=== PATIENT | female | born 1980 | race Caucasian/White ===

== ENCOUNTER 2018-09-01 14:55 | Outpatient (CLI) | payer BC, SELFPAY ==
[2018-09-01 15:00] VITALS: BP 112/76; PULSE 64; RESP 20
[2018-09-01 15:23] VITALS: BMI 34.8
[2018-09-01 15:50] VITALS: BP 110/64; PULSE 66; RESP 20
[2018-09-01 16:25] VITALS: BP 111/72; PULSE 65; RESP 20
[2018-09-01 16:55] VITALS: BP 113/62; PULSE 64; RESP 20
[2018-09-01 17:25] VITALS: BP 126/80; PULSE 61; RESP 20
[2018-09-01 17:45] VITALS: BP 125/77; PULSE 62; RESP 20
== END 2018-09-01 17:50 | disposition home or self-care (01) ==
LOC: INF 14:58
PROVIDERS: PCP Family Medicine; Visit Provider Family Medicine
DX: R11.2 Nausea with vomiting, unspecified (principal)
CPT/HCPCS: 96360; 96361; 96374

== ENCOUNTER 2019-01-11 12:17 | Observation (INO) | payer BC, SELFPAY ==
--- NOTE | 2019-01-11 12:31 | CT_ITS ---
CT abdomen pelvis wo/w con CLINICAL INDICATION: Right lower quadrant pain with vomiting ITS.REASON: RLQ ABDOMINAL PAIN ORDERING PHYSICIAN: Luiz Mahmood MD PATIENT AGE: 38 years COMPARISON: None TECHNIQUE: Axial images obtained without and with contrast. Sagittal and coronal reformats. All CT scans at the facility use one or more dose reduction, viz: automated exposure control, ma/kV adjustment per patient size (including targeted exams where dose is matched to indication, i.e. head), or iterative reconstruction technique. PROCEDURE: Oral Contrast: Gastroview IV Contrast: 75 mL's Optiray 350. FINDINGS: The lung bases are clear. Unenhanced images show no evidence of kidney stones. Spleen, gallbladder, adrenal glands, and pancreas has an unremarkable appearance. There are scattered small nodes in the mesentery is nonspecific. No evidence of appendicitis. No intestinal obstruction or free air. There is an IUD in place. Prominent soft tissue density is present in the right adnexal region and may be due to an ovarian cyst or an enlarged hypodense ovary.. No abscess mass or other significant anomalies evident. No acute bony anomalies. IMPRESSION: 1. No evidence of appendicitis or obstructing ureteral calculus. 2. Prominent right adnexa with low attenuation which may be due to ovarian cyst measuring 4.3 x 2.9 cm. Pelvic ultrasound may be of further value especially if torsion is a clinical consideration.
[2019-01-11 12:35] VITALS: BP 141/88; PULSE 89; RESP 15; TEMP 36.6; O2SAT 96; BMI 36.7
[2019-01-11 13:10] LABS: Basophils % 0.3 % (0.1-2.0); Eosinophils # 0.2 K/mm3 (0.0-0.4); Eosinophils % 1.6 % (0.1-12.0); Hematocrit 43.2 % (37.0-47.0); Lymphocytes # 1.8 K/mm3 (0.7-4.5); Lymphocytes % 17.8 % (10-50); Mean Corpuscular HGB Conc 34.6 g/dL (31.8-35.4); Mean Corpuscular Hemoglobin 32.4 pg (27.0-31.2); Mean Corpuscular Volume 93.5 fl (81-99); Mean Platelet Volume 6.8 fl (7.4-10.4); Monocytes # 0.4 K/mm3 (0.1-1.0); Monocytes % 4.1 % (1.7-9.3); Neutrophils # 7.8 K/mm3 (1.8-7.8); Neutrophils % 76.2 % (37.0-80.0); Platelet Count 328 K/mm3 (142-424); Red Blood Count 4.63 M/mm3 (4.20-5.40); Red Cell Distribution Width 13.2 % (11.5-17.5); White Blood Count 10.3 K/mm3 (4.8-10.8)
[2019-01-11 13:25] LABS: Alanine Aminotransferase 23 U/L (12-78); Albumin Level 3.5 gm/dL (3.4-5.0); Alkaline Phosphatase 73 U/L (46-116); Anion Gap 13.5 mEq/L (5-15); Aspartate Amino Transferase 11 U/L (15-37); Bilirubin,Total 0.8 mg/dL (0.2-1.0); Blood Urea Nitrogen 9 mg/dL (7-18); Calcium 8.4 mg/dL (8.5-10.1); Carbon Dioxide 26 mmol/L (21.0-32.0); Chloride 100 mmol/L (98-107); Creatinine Clearance Estimated 277 mL/min (50-200); Creatinine,Serum 0.52 mg/dL (0.55-1.02); Estimated Glomerular Filt Rate 132 ml/min (>60); GFR (African American) 160 ML/MIN (>60); Globulin 3.4 gm/dl (1.3-3.2); Glucose 91 mg/dL (74-106); Potassium 3.5 mmoL/L (3.5-5.1); Sodium 136 mmol/L (136-145); Total Protein,Serum 6.9 gm/dL (6.4-8.2)
--- NOTE | 2019-01-11 14:06 | PC.NURSE ---
Education provided regarding, diarrhea, abdominal pain, nausea, patient verbalized understanding, will continue to monitor.
--- NOTE | 2019-01-11 15:13 | HMH.ACPN2 ---
Internal Medicine - PN: Subj *Date: 01/11/19 *Time: 15:13 Interval history: Ms. Murcia is a 38-year-old female with a immune disorder who presented to the office of [facility] today with nausea and vomiting and diarrhea for the past 2 days. This morning she awakened with right lower quadrant severe abdominal pain. She continued on with diarrhea and vomiting. She has been unable to retain fluids or fluids. She has not diminished urinary output. She also complains of a headache. She has had no upper respiratory tract symptoms. Exam the office patient demonstrated right lower quadrant tenderness. CBC was normal. She appeared to feel poorly. She also had hematuria. She was seen by Dr. Mahmood as well. She was admitted to [facility] for further evaluation and treatment. She will have IV fluids and CT scan of the pelvis. She will also have a diarrhea panel. See [facility] H&P scanned into record. Exam Vital signs and Labs for Last 24 Hours: Temp Pulse Resp BP Pulse Ox 97.9 F 89 15 141/88 H 96 01/11/19 12:35 01/11/19 12:35 01/11/19 12:35 01/11/19 12:35 01/11/19 12:35 Laboratory Results - last 24 hr 01/11/19 12:53: WBC 10.3, RBC 4.63, Hgb 15.0, Hct 43.2, MCV 93.5, MCH 32.4 H, MCHC 34.6, RDW 13.2, Plt Count 328, MPV 6.8 L, Neut % (Auto) 76.2, Lymph % (Auto) 17.8, [place] % (Auto) 4.1, Eos % (Auto) 1.6, Baso % (Auto) 0.3, Neut # (Auto) 7.8, Lymph # (Auto) 1.8, [place] # (Auto) 0.4, Eos # (Auto) 0.2, Baso # (Auto) 0.0 01/11/19 12:53: Sodium 136, Potassium 3.5, Chloride 100, Carbon Dioxide 26, Anion Gap 13.5, BUN 9, Creatinine 0.52 L, Estimated Creat Clear 277, Estimated GFR 132, Est GFR ( Amer) 160, Glucose 91, Calcium 8.4 L, Total Bilirubin 0.8, AST 11 L, ALT 23, Alkaline Phosphatase 73, Total Protein 6.9, Albumin 3.5, Globulin 3.4 H, Albumin/Globulin Ratio 1.0 L I & O for Last 24 hours: Intake & Output 01/09/19 01/10/19 01/11/19 01/12/19 11:59 11:59 11:59 11:59 Intake Total 1000 / 1000 Balance 1000 / 1000 Weight 263 lb 4 oz Assessment and Plan (1) Nausea vomiting and diarrhea Current visit: Yes Status: Acute Category: Medical Code(s): R11.2 - Nausea with vomiting, unspecified; R19.7 - Diarrhea, unspecified (2) Abdominal pain Current visit: Yes Status: Acute Category: Medical Code(s): R10.9 - Unspecified abdominal pain (3) Mild dehydration Current visit: Yes Status: Acute Category: Medical Code(s): E86.0 - Dehydration (4) Hematuria Current visit: Yes Status: Acute Category: Medical Code(s): R31.9 - Hematuria, unspecified (5) Immune deficiency disorder Current visit: Yes Status: Chronic Category: Medical Code(s): D84.9 - Immunodeficiency, unspecified - Assessment and plan all Dx Assessment and Plan for all problems:: IV fluids. Diarrhea panel. Nausea/vomiting control.
[2019-01-11 15:42] LABS: Microscopic, Urine URINE MICROSCOPIC (MICROSCOPIC)
[2019-01-11 15:52] LABS: Appearance,Urine CLEAR (Clear); Bilirubin,Urine Negative (Negative); Blood, Urine 3+ (Negative); Color,Urine YELLOW (Yellow); Glucose,Urine (UA) Negative (Negative); Ketones,Urine Negative (Negative); Leukocyte Esterase,Urine Negative (Negative); Nitrate,Urine Negative (Negative); PH,Urine 6.5 (5.0-8.5); Protein,Urine Negative (Negative); Specific Gravity, Urine <= 1.005 (1.005-1.030); Urobilinogen,Urine 0.2 EU/dl (0.2)
[2019-01-11 15:56] VITALS: BP 106/59; PULSE 74; RESP 17; TEMP 36.6; O2SAT 99
[2019-01-11 16:03] LABS: Bacteria,Urine Trace /lpf
--- NOTE | 2019-01-11 16:20 | P.CONPHA_ITS ---
[facility] Pharmacy VTE Monitoring - Patient Demographics Admission date: 01/11/19 Report Date: 01/11/19 Time: 16:20 Allergies/Adverse Reactions: Patient Allergies HYQUVIA Allergy (Unknown, Uncoded 08/10/17 15:38) I-RASH Height: 1.8 m Weight: 119.408 kg Patient Problems: Current Active Problems (Updated 01/11/19 @ 15:23 by Brii Rios APRN) Nausea vomiting and diarrhea (Acute) Abdominal pain (Acute) Mild dehydration (Acute) Hematuria (Acute) Immune deficiency disorder (Chronic) - VTE Risk Labs: VTE Related Lab Results Hgb 15.0 g/dL (12.2-16.2) 01/11/19 12:53 Hct 43.2 % (37.0-47.0) 01/11/19 12:53 Plt Count 328 K/mm3 (142-424) 01/11/19 12:53 BUN 9 mg/dL (7-18) 01/11/19 12:53 Creatinine 0.52 mg/dL (0.55-1.02) L 01/11/19 12:53 Estimated Creat Clear 277 mL/min (50-200) 01/11/19 12:53 VTE Score: 2 - Prophylaxis VTE Prophylaxis Ordered?: Yes Types of VTE Prophylaxis: TEDS Knee High Location of Applied Device: Bilateral Lower Extremeties
--- NOTE | 2019-01-11 17:00 | US_ITS ---
US transvaginal HISTORY: Right lower quadrant pain and vomiting, abnormal CT scan showing prominent right adnexa., Evaluate for torsion ITS.REASON: RLQ PAIN ORDERING PHYSICIAN: Luiz Mahmood MD PATIENT AGE: 38 years Comparison: 01/11/2019 FINDINGS: The uterus measures 8 x 5 x 4 cm with a combined endometrial thickness of 7 mm. The uterus is retroverted. The left ovary has an unremarkable appearance 1.9 x 1.6 cm. There is a 4 x 4 cm right ovarian cyst. Blood flow is present within the cortex of the right ovary. No evidence of torsion. Blood flow is also present within the left ovary. No cul-de-sac fluid evident. IMPRESSION: 1. 4 cm right ovarian cyst. 2. Blood flow is present in both ovaries. No evidence of ovarian torsion
--- NOTE | 2019-01-11 17:31 | PC.NURSE ---
no acute changes noted, patient has no complaints at this time, VSS, call light in place, will continue to monitor.
[2019-01-11 17:42] LABS: Adenovirus F 40/41, stool Not Detected (NotDetected); Astrovirus Not Detected (NotDetected); Campylobacter Not Detected (NotDetected); Clostridium Difficile A/B, PCR Not Detected (NotDetected); Cryptosporidium Not Detected (NotDetected); Cyclospora Cayetanesis Not Detected (NotDetected); Entamoeba histolytica Not Detected (NotDetected); Enteroaggregative E coli Not Detected (NotDetected); Enteropathogenic E coli Not Detected (NotDetected); Enterotoxigenic E coli Not Detected (NotDetected); Giardia lamblia Not Detected (NotDetected); Plesimonas Shigalloides, PCR Not Detected (NotDetected); Rotavirus A Not Detected (NotDetected); Salmonella, PCR Not Detected (NotDetected); Sapovirus Not Detected (NotDetected); Shiga-like toxin E coli Not Detected (NotDetected); Shigella Enterovasive E coli Not Detected (NotDetected); Vibrio Cholerae Not Detected (NotDetected); Vibrio, PCR Not Detected (NotDetected); Yersinia Entercolitica, PCR Not Detected (NotDetected)
--- NOTE | 2019-01-11 19:17 | PC.NURSE ---
report given to rory
[2019-01-11 19:34] LABS: Norovirus Detected (NotDetected)
[2019-01-11 20:00] VITALS: BP 147/96; PULSE 80; RESP 17; TEMP 36.8; O2SAT 99
--- NOTE | 2019-01-11 20:13 | PC.NURSE ---
Pt transported by wheelchair to radiology for US at this time.
--- NOTE | 2019-01-11 20:14 | PC.NURSE ---
rn aware of elevated bp
--- NOTE | 2019-01-11 20:38 | PC.NURSE ---
Pt returned to floor at this time.
--- NOTE | 2019-01-12 03:37 | PC.NURSE ---
PT IS A&O X 3. CLEAR, EQUAL BILATERAL BREATH SOUNDS PER AUSCULTATION. PT IS ON ROOM AIR. TOLERATED WELL. ABDOMEN IS FLAT, SOFT AND TENDER PER PALPATION. PT DENIED ANY N/V. PT REPORTED STILL HAVING EPISODES OF DIARRHEA. PT COMPLAINED OF A THROBBING PRESSURE LIKE PAIN IN HER RLQ WITH OR WITHOUT MOVEMENT. PT TOLERATED A CLEAR LIQUID DIET. HYPERACTIVE BOWEL SOUNDS HEARD PER AUSCULTATION. DIARRHEA PANNEL CAME BACK POSITIVE FOR NORO VIRUS. PT WAS PLACED AND REMAINED IN CONTACT/ ENTERIC ISOLATION T/O SHIFT. PT REPORTED NOTICING A SCANT AMOUNT OF BRIGHT RED BLOOD PRESENT FROM HER VAGINA. WHEN ASKED ABOUT HER LAST MENSTRUAL CYCLE THE PT STATED SHE HADNT HAD ONE IN YEARS. PT IS ABLE TO AMBULATE AND VOID INDEPENDENTLY. CALL LIGHT KEPT IN REACH. VSS. WILL CONTINUE TO MONITOR.
[2019-01-12 04:00] VITALS: BP 106/65; PULSE 70; RESP 16; TEMP 36.8; O2SAT 95
[2019-01-12 05:57] VITALS: BMI 37.2
[2019-01-12 08:00] VITALS: BP 130/80; PULSE 74; RESP 15; TEMP 36.6; O2SAT 94
--- NOTE | 2019-01-12 08:04 | PC.NURSE ---
IV INTAKE FROM PREVIOUS SHIFT WELL.
--- NOTE | 2019-01-12 08:26 | HMH.ACPN2 ---
Internal Medicine - PN: Subj *Date: 01/12/19 *Time: 08:26 Interval history: Patient states she is feeling better today. She has not had diarrhea for approx. 5 to 6 hours. Her stomach pain is improving. She was able to tolerate a clear liquid diet. She rested last night. Exam Vital signs and Labs for Last 24 Hours: Temp Pulse Resp BP Pulse Ox 97.9 F 70 15 130/80 94 L 01/12/19 08:00 01/12/19 04:00 01/12/19 08:00 01/12/19 08:00 01/12/19 08:00 Laboratory Results - last 24 hr 01/11/19 12:53: WBC 10.3, RBC 4.63, Hgb 15.0, Hct 43.2, MCV 93.5, MCH 32.4 H, MCHC 34.6, RDW 13.2, Plt Count 328, MPV 6.8 L, Neut % (Auto) 76.2, Lymph % (Auto) 17.8, [place] % (Auto) 4.1, Eos % (Auto) 1.6, Baso % (Auto) 0.3, Neut # (Auto) 7.8, Lymph # (Auto) 1.8, [place] # (Auto) 0.4, Eos # (Auto) 0.2, Baso # (Auto) 0.0 01/11/19 12:53: Sodium 136, Potassium 3.5, Chloride 100, Carbon Dioxide 26, Anion Gap 13.5, BUN 9, Creatinine 0.52 L, Estimated Creat Clear 277, Estimated GFR 132, Est GFR ( Amer) 160, Glucose 91, Calcium 8.4 L, Total Bilirubin 0.8, AST 11 L, ALT 23, Alkaline Phosphatase 73, Total Protein 6.9, Albumin 3.5, Globulin 3.4 H, Albumin/Globulin Ratio 1.0 L 01/11/19 13:37: Urine Color Yellow, Urine Appearance Clear, Urine pH 6.5, Ur Specific [place] <= 1.005, Urine Protein Negative, Urine Glucose (UA) Negative, Urine Ketones Negative, Urine Blood 3+, Urine Nitrate Negative, Urine Bilirubin Negative, Urine Urobilinogen 0.2, Ur Leukocyte Esterase Negative, Urine WBC 3-5, Ur Squamous Epith Cells 3-5, Urine Bacteria Trace 01/11/19 17:32: Stl Aeromonas (PCR) Not detected, Stl C. cayetanensis PCR Not detected, Stool Rotavirus (PCR) Not detected, Stl Adenov F 40/41 PCR Not detected, Stool Astrovirus (PCR) Not detected, Stool Campylobacter PCR Not detected, Stl C.difficile Tox PCR Not detected, Stool Cryptosporidium PCR Not detected, Stl E.coli Shiga Tox PCR Not detected, Stool E coli O157 PCR Not detected, Stl Enterotoxigenic E PCR Not detected, Stool EPEC (PCR) Not detected, Stool EAEC (PCR) Not detected, Stl E. histolytica PCR Not detected, Stool Giardia Lamblia PCR Not detected, Stool Salmonella PCR Not detected, Stool Sapovirus (PCR) Not detected, Stl P. shigelloides PCR Not detected, Stl Shigella/EIEC PCR Not detected, St Y.enterocolitica PCR Not detected, Stool Vibrio (PCR) Not detected, Stl Vibrio cholerae PCR Not detected, Stl Norovirus GI/GII PCR Detected A I & O for Last 24 hours: Intake & Output 01/09/19 01/10/19 01/11/19 01/12/19 11:59 11:59 11:59 11:59 Intake Total 4606 / 4606 Output Total 800 / 800 Balance 3806 / 3806 Weight 267 lb 2 oz Radiology Reports for the Last 24 Hours: CT abdomen pelvis 1. No evidence of appendicitis or obstructing ureteral calculus. 2. Prominent right adnexa with low attenuation which may be due to ovarian cyst measuring 4.3 x 2.9 cm. Pelvic ultrasound may be of further value especially if torsion is a clinical consideration. Pelvic U/S 1. 4 cm right ovarian cyst. 2. Blood flow is present in both ovaries. No evidence of ovarian torsion - Constitutional no acute distress - *Routine Respiratory Exam Present: CTA bilaterally - *Routine Cardiovascular Exam Present: RRR - *Routine Abdominal Exam Present: soft, normoactive bowel sounds, tenderness (diffuse) - *Routine Extremities Exam Absent: cyanosis, clubbing, edema - *Routine Skin Exam Present: warm. Absent: rash - *Routine Neurological Exam Present: alert, oriented X3 Assessment and Plan (1) Norovirus Current visit: Yes Status: Acute Category: Medical Code(s): A08.11 - Acute gastroenteropathy due to [place] agent (2) Nausea vomiting and diarrhea Current visit: Yes Status: Acute Category: Medical Code(s): R11.2 - Nausea with vomiting, unspecified; R19.7 - Diarrhea, unspecified (3) Abdominal pain Current visit: Yes Status: Acute Category: Medical Code(s): R10.9 - Unspecified abdominal pain (
--- NOTE | 2019-01-12 08:29 | P.PN_ITS ---
Internal Medicine - PN: Subj *Date: 01/12/19 *Time: 08:26 Interval history: Patient states she is feeling better today. She has not had diarrhea for approx. 5 to 6 hours. Her stomach pain is improving. She was able to tolerate a clear liquid diet. She rested last night. Exam Vital signs and Labs for Last 24 Hours: Temp Pulse Resp BP Pulse Ox 97.9 F 70 15 130/80 94 L 01/12/19 08:00 01/12/19 04:00 01/12/19 08:00 01/12/19 08:00 01/12/19 08:00 Laboratory Results - last 24 hr 01/11/19 12:53: WBC 10.3, RBC 4.63, Hgb 15.0, Hct 43.2, MCV 93.5, MCH 32.4 H, MCHC 34.6, RDW 13.2, Plt Count 328, MPV 6.8 L, Neut % (Auto) 76.2, Lymph % (Auto) 17.8, [place] % (Auto) 4.1, Eos % (Auto) 1.6, Baso % (Auto) 0.3, Neut # (Auto) 7.8, Lymph # (Auto) 1.8, [place] # (Auto) 0.4, Eos # (Auto) 0.2, Baso # (Auto) 0.0 01/11/19 12:53: Sodium 136, Potassium 3.5, Chloride 100, Carbon Dioxide 26, Anion Gap 13.5, BUN 9, Creatinine 0.52 L, Estimated Creat Clear 277, Estimated GFR 132, Est GFR ( Amer) 160, Glucose 91, Calcium 8.4 L, Total Bilirubin 0.8, AST 11 L, ALT 23, Alkaline Phosphatase 73, Total Protein 6.9, Albumin 3.5, Globulin 3.4 H, Albumin/Globulin Ratio 1.0 L 01/11/19 13:37: Urine Color Yellow, Urine Appearance Clear, Urine pH 6.5, Ur Specific [place] <= 1.005, Urine Protein Negative, Urine Glucose (UA) Negative, Urine Ketones Negative, Urine Blood 3+, Urine Nitrate Negative, Urine Bilirubin Negative, Urine Urobilinogen 0.2, Ur Leukocyte Esterase Negative, Urine WBC 3-5, Ur Squamous Epith Cells 3-5, Urine Bacteria Trace 05/22/19 17:32: Stl Aeromonas (PCR) Not detected, Stl C. cayetanensis PCR Not detected, Stool Rotavirus (PCR) Not detected, Stl Adenov F 40/41 PCR Not detected, Stool Astrovirus (PCR) Not detected, Stool Campylobacter PCR Not detected, Stl C.difficile Tox PCR Not detected, Stool Cryptosporidium PCR Not detected, Stl E.coli Shiga Tox PCR Not detected, Stool E coli O157 PCR Not detected, Stl Enterotoxigenic E PCR Not detected, Stool EPEC (PCR) Not detected, Stool EAEC (PCR) Not detected, Stl E. histolytica PCR Not detected, Stool Giardia Lamblia PCR Not detected, Stool Salmonella PCR Not detected, Stool Sapovirus (PCR) Not detected, Stl P. shigelloides PCR Not detected, Stl Shigella/EIEC PCR Not detected, St Y.enterocolitica PCR Not detected, Stool Vibrio (PCR) Not detected, Stl Vibrio cholerae PCR Not detected, Stl Norovirus GI/GII PCR Detected A I & O for Last 24 hours: Intake & Output 01/09/19 01/10/19 01/11/19 01/12/19 11:59 11:59 11:59 11:59 Intake Total 4606 / 4606 Output Total 800 / 800 Balance 3806 / 3806 Weight 267 lb 2 oz Radiology Reports for the Last 24 Hours: CT abdomen pelvis 1. No evidence of appendicitis or obstructing ureteral calculus. 2. Prominent right adnexa with low attenuation which may be due to ovarian cyst measuring 4.3 x 2.9 cm. Pelvic ultrasound may be of further value especially if torsion is a clinical consideration. Pelvic U/S 1. 4 cm right ovarian cyst. 2. Blood flow is present in both ovaries. No evidence of ovarian torsion - Constitutional no acute distress - *Routine Respiratory Exam Present: CTA bilaterally - *Routine Cardiovascular Exam Present: RRR - *Routine Abdominal Exam Present: soft, normoactive bowel sounds, tenderness (diffuse) - *Routine Extremities Exam Absent: cyanosis, clubbing, edema - *Routine Skin Exam Present: warm. Absent: rash
--- NOTE | 2019-01-12 10:33 | PC.NURSE ---
patient stated that she has tolerated breakfast this morning.
--- NOTE | 2019-01-12 11:56 | HMH.DCSUM ---
General - General Admission date:: 01/11/19 Discharge date: 01/12/19 HPI HPI: Ms. Murcia is a 38-year-old female with a immune disorder who presented to the office of [facility] today with nausea and vomiting and diarrhea for the past 2 days. This morning she awakened with right lower quadrant severe abdominal pain. She continued on with diarrhea and vomiting. She has been unable to retain food or fluids. She has diminished urinary output. She also complains of a headache. She has had no upper respiratory tract symptoms. With exam in the office, the patient demonstrated right lower quadrant tenderness. CBC was normal. She appeared to feel poorly. She also had hematuria. She was seen by Dr. Pablo as well. She was admitted to [facility] for further evaluation and treatment. She will have IV fluids and CT scan of the pelvis. She will also have a diarrhea panel. Hospital Course Hospital Course: The patient's abdominal CT showed no evidence of appendicitis or kidney stones. It did show a prominent right adnexa with low attenuation which could be due to ovarian cyst. Radiology recommended a pelvic ultrasound. The patient had a transvaginal ultrasound which showed a 4 cm right ovarian cyst. There was no evidence of ovarian torsion. She was started on IV fluids, antiemetics, and a diarrhea panel was ordered. It came back positive for norovirus. Her symptoms did not improve. Her diet was advanced and her IV fluids were decreased. She began feeling much better and was anxious to be discharged home. She was stable to be discharged home on her normal medications. She will need to follow-up in the office of [facility] with Dr. pablo in 1 week and also with her CENTRAL OFFICE REPAIRER due to the right ovarian cyst. Objective Vital signs: Temp Pulse Resp BP Pulse Ox 97.9 F 70 15 130/80 94 L 01/12/19 08:00 01/12/19 04:00 01/12/19 08:00 01/12/19 08:00 01/12/19 08:00 Narrative: Constitutional no acute distress - *Routine Respiratory Exam Present: CTA bilaterally - *Routine Cardiovascular Exam Present: RRR - *Routine Abdominal Exam Present: soft, normoactive bowel sounds, tenderness (diffuse) - *Routine Extremities Exam Absent: cyanosis, clubbing, edema - *Routine Skin Exam Present: warm. Absent: rash - *Routine Neurological Exam Present: alert, oriented X3 Results Labs on day of discharge: Labs from last 24 hours 01/11/19 01/11/19 01/11/19 17:32 13:37 12:53 WBC RBC Hgb Hct MCV MCH MCHC RDW Plt Count MPV Neut % (Auto) Lymph % (Auto) [place] % (Auto) Eos % (Auto) Baso % (Auto) Neut # (Auto) Lymph # (Auto) [place] # (Auto) Eos # (Auto) Baso # (Auto) Sodium 136 Potassium 3.5 Chloride 100 Carbon Dioxide 26 Anion Gap 13.5 BUN 9 Creatinine 0.52 L Estimated Creat Clear 277 Estimated GFR 132 Est GFR ( Amer) 160 Glucose 91 Calcium 8.4 L Total Bilirubin 0.8 AST 11 L ALT 23 Alkaline Phosphatase 73 Total Protein 6.9 Albumin 3.5 Globulin 3.4 H Albumin/Globulin Ratio 1.0 L Urine Color Yellow Urine Appearance Clear Urine pH 6.5 Ur Specific [place] <= 1.005 Urine Protein Negative Urine Glucose (UA) Negative Urine Ketones Negative Urine Blood 3+ Urine Nitrate Negative Urine Bilirubin Negative Urine Urobilinogen 0.2 Ur Leukocyte Esterase Negative Urine WBC 3-5 Ur Squamous Epith Cells 3-5 Urine Bacteria Trace Stl Aeromonas (PCR) Not detected Stl C. cayetanensis PCR Not detected Stool Rotavirus (PCR) Not detected Stl Adenov F 40/41 PCR Not detected Stool Astrovirus (PCR) Not detected Stool Campylobacter PCR Not detected Stl C.difficile Tox PCR Not detected Stool Cryptosporidium PCR Not detected Stl E.coli Shiga Tox PCR Not detected Stool E c
--- NOTE | 2019-01-12 12:00 | P.DS_ITS ---
General - General Admission date:: 01/11/19 Discharge date: 01/12/19 HPI HPI: Ms. Murcia is a 38-year-old female with a immune disorder who presented to the office of [facility] today with nausea and vomiting and diarrhea for the past 2 days. This morning she awakened with right lower quadrant severe abdominal pain. She continued on with diarrhea and vomiting. She has been unable to retain food or fluids. She has diminished urinary output. She also complains of a headache. She has had no upper respiratory tract symptoms. With exam in the office, the patient demonstrated right lower quadrant tenderness. CBC was normal. She appeared to feel poorly. She also had hematuria. She was seen by Dr. Pablo as well. [facility] and treatment. She will have IV fluids and CT scan of the pelvis. She will also have a diarrhea panel. Hospital Course Hospital Course: The patient's abdominal CT showed no evidence of appendicitis or kidney stones. It did show a prominent right adnexa with low attenuation which could be due to ovarian cyst. Radiology recommended a pelvic ultrasound. The patient had a transvaginal ultrasound which showed a 4 cm right ovarian cyst. There was no evidence of ovarian torsion. She was started on IV fluids, antiemetics, and a diarrhea panel was ordered. It came back positive for norovirus. Her symptoms did not improve. Her diet was advanced and her IV fluids were decreased. She began feeling much better and was anxious to be discharged home. She was stable to be discharged home on her normal medications. She will need to follow-up in the office of [facility] with Dr. pablo in 1 week and also with her PHARMACY AIDE due to the right ovarian cyst. Objective Vital signs: Temp Pulse Resp BP Pulse Ox 97.9 F 70 15 130/80 94 L 01/12/19 08:00 01/12/19 04:00 01/12/19 08:00 01/12/19 08:00 01/12/19 08:00 Narrative: Constitutional no acute distress - *Routine Respiratory Exam Present: CTA bilaterally - *Routine Cardiovascular Exam Present: RRR - *Routine Abdominal Exam Present: soft, normoactive bowel sounds, tenderness (diffuse) - *Routine Extremities Exam Absent: cyanosis, clubbing, edema - *Routine Skin Exam Present: warm. Absent: rash - *Routine Neurological Exam Present: alert, oriented X3 Results Labs on day of discharge: Labs from last 24 hours 01/11/19 01/11/19 01/11/19 17:32 13:37 12:53 WBC RBC Hgb Hct MCV MCH MCHC RDW Plt Count MPV Neut % (Auto) Lymph % (Auto) [place] % (Auto) Eos % (Auto) Baso % (Auto) Neut # (Auto) Lymph # (Auto) [place] # (Auto) Eos # (Auto) Baso # (Auto) Sodium 136 Potassium 3.5 Chloride 100 Carbon Dioxide 26 Anion Gap 13.5 BUN 9 Creatinine 0.52 L Estimated Creat Clear 277 Estimated GFR 132 Est GFR ( Amer) 160 Glucose 91 Calcium 8.4 L Total Bilirubin 0.8 AST 11 L ALT 23 Alkaline Phosphatase 73 Total Protein 6.9
--- NOTE | 2019-01-12 12:27 | HMH.PHAINT ---
DISCHARGE COUNSELING COMPLETED ON PATIENT. NO NEW MEDICATIONS AT THIS TIME. PATIENT IS TO CONTINUE ALL CURRENT HOME MEDICATIONS. -MELBA CALID
--- NOTE | 2019-01-12 13:55 | PC.NURSE ---
Addendum entered by Jessica Puente CNA 01/12/19 18:50: Original Note: NURSE OBTAINED PTS BP MANUAL.
== END 2019-01-12 12:41 | disposition home or self-care (01) ==
PROVIDERS: Nurse Practitioner Family; Admitting Provider Family Medicine; PCP Family Medicine; Visit Provider Family Medicine
DX: A08.11 Acute gastroenteropathy due to Norwalk agent (principal); E86.0 Dehydration; D84.9 Immunodeficiency, unspecified; N83.201 Unspecified ovarian cyst, right side; Z91.09 Other allergy status, other than to drugs and biological substances; R11.2 Nausea with vomiting, unspecified; R10.31 Right lower quadrant pain; R31.9 Hematuria, unspecified; R19.7 Diarrhea, unspecified; R51 Headache
CPT/HCPCS: 74178; 76830; 80053; 81001; 85025; 87507; G0378; Q9967

== ENCOUNTER → 2019-08-03 13:49 | Outpatient (CLI) | payer BC, SELFPAY ==
--- NOTE | 2019-08-03 14:07 | XR_ITS ---
PROCEDURE: XR CHEST 2V CLINICAL HISTORY: BRONCHITIS Cough and wheezing COMPARISON: CXR CHEST(2 VIEWS-NOT PORTABLE) from 04/20/2013 CXR CHEST(2 VIEWS-NOT PORTABLE) from 03/26/2014 CXR CHEST(2 VIEWS-NOT PORTABLE) from 06/22/2016 FINDINGS: The cardiomediastinal silhouette and pulmonary vascularity are within normal limits. The lungs are clear without infiltrates, suspicious nodules, or pleural effusions. No acute bony abnormalities. IMPRESSION: No acute findings. Dictated by: Mendoza Teran MD 08/03/2019 15:45 Electronically signed by Mendoza Teran MD in [place] 08/03/2019 15:45
== END ==
PROVIDERS: PCP Physician Assistant; Visit Provider Physician Assistant
DX: J40 Bronchitis, not specified as acute or chronic (principal)
CPT/HCPCS: 71046

== ENCOUNTER 2020-03-21 13:15 | Emergency (ER) | payer BC, SELFPAY ==
[2020-03-21 13:34] VITALS: BP 111/69; PULSE 88; RESP 20; TEMP 36.8; O2SAT 97; BMI 40.4
--- NOTE | 2020-03-21 13:41 | HMH.EDUTC ---
[facility] [place] Clinical Impression: Sinusitis Qualifiers: Sinusitis location: unspecified location Chronicity: unspecified Qualified Code(s): J32.9 - Chronic sinusitis, unspecified Disposition: Home, Self-Care Condition on Discharge: Good Instructions: Sinusitis, Sinus Headache, DI for Sinusitis, Preventing the Spread of Coronavirus Discharge Instructions Additional Instructions: *Monitor Temp, Over the counter Motrin or Tylenol as directed/as needed Tylenol every 4 hours and Motrin every 6 hours (as long as your family doctor has told you that you can take it) for fever or pain. and straight to ER if unable to lower temp less than 101.0 after medication given *Warm salt water gargles may help to soothe the throat *Throat Lozenges *Warm fluids like tea with honey may help to soothe the throat *Sleep elevated *Humidifier/Vaporizer Start antibiotic. Sinus infections may take 2-3 days to notice much improvement so be sure to use conservative measures as discussed for symptoms Lots of Fluids Augmentin can cause GI effects. Probiotics may help to prevent these symptoms Follow up with family doctor if no improvement or any worsening of symptoms Follow up IMMEDIATELY for new or worsening symptoms or no Noticeable improvement over the next 48-72 hours. 911 for difficulty breathing or swallowing ? Drink extra fluids with and between meals. If you have difficulty drinking, try very small amounts of water or suck on ice chips. ? Avoid fruit juices, as these do not replace minerals and can actually increase diarrhea. ? Children and adults can use sports drinks to replenish electrolytes. Younger children and infants should use products formulated for children, like oral rehydration solutions. ? Eat food in small amounts and let your stomach recover. ? Get lots of rest. You may feel tired or weak. ? No greasy or fried foods for the next 24-48 hours BRAT diet Bananas Rice Apples and Babbie ? Make sure to drink plenty of liquids ? Return if needed ? Straight to ER if any life threatening symptoms ? You was given an outpatient order for diarrhea panel, please collect specimen and bring back to outpatient lab then call back to the [facility] or follow up with family doctor for results ? Follow up with family doctor in the next 48-72 hours if no improvement or any worsening of symptoms Prescriptions: Amoxicillin/Potassium Clav [Augmentin 875-125 Tablet] 1 tab PO Q12H 10 Days #20 tab Transmission Status: Received by [facility] #[id number] Fluticasone Propionate [Flonase 50mcg nasal spray 16gm] 1 - 2 spr NS DAILY #1 bottle Transmission Status: Received by [facility] #[id number] Referrals: Misbah Talavera MD [Primary Care Provider] - As needed Time of Disposition: 14:03 Medical Decision Making - Jace Inquiry Pt receiving controlled substance: No Jace was queried for this patient: No Vital Signs: 03/21/20 13:34 Temperature 98.2 F Temperature Source Oral Pulse Rate [Right Brachial] 88 Respiratory Rate 20 Blood Pressure [Right Arm] 111/69 Blood Pressure Mean [Right Arm] 83 Blood Pressure Source [Right Arm] Automatic Cuff Blood Pressure Position [Right Arm] Sitting 02 Sat by Pulse Oximetry 97 Oxygen Delivery Method Room Air Orders (Tests/Meds): ORDERS Category Date Time Status SARS-CoV-2, MAUREEN Stat Lab 03/21/20 13:32 Ordered [facility] [place] - General Stated complaint: Sinus issues; Time Seen by Provider: 03/21/20 13:42 Mode of Arrival: Ambulatory Source of Information: Patient Limitations: No Limitations Description of Symptoms (Recalled from Triage Doc. by RN): PATIENT C/O HEADACHE, DIARRHEA, SINUS PRESSURE, LOW-GRADE FEVER, BODY ACHES, HOT FLASHES, AND DRY COUGH SINCE LAST WEDNESDAY HEENT Symptoms (Recalled from RN notes): Yes Resp Symptoms (Recalled from RN notes): Yes Skin Symptoms (Recalled from RN notes): No MS Symptoms (Recalled from RN notes): Yes Functional Status (Recalled from RN notes): WNL - History of
[2020-03-21 14:10] VITALS: BP 111/69; PULSE 88; RESP 20; TEMP 36.8; O2SAT 97
[2020-03-22 13:23] LABS: Covid-19 Nasal PCR Sendout Lex Not Detected
== END 2020-03-21 14:12 | disposition home or self-care (01) ==
PROVIDERS: Emergency Provider Nurse Practitioner; PCP Family Medicine
DX: J32.9 Chronic sinusitis, unspecified (principal); G43.709 Chronic migraine without aura, not intractable, without status migrainosus; F41.9 Anxiety disorder, unspecified; F17.210 Nicotine dependence, cigarettes, uncomplicated
CPT/HCPCS: 99201; U0004

== ENCOUNTER → 2020-03-22 13:11 | Outpatient (CLI) | payer BC, SELFPAY ==
[2020-03-22 13:16] LABS: Adenovirus F 40/41, stool Not Detected (NotDetected); Astrovirus Not Detected (NotDetected); Campylobacter Not Detected (NotDetected); Clostridium Difficile A/B, PCR Not Detected (NotDetected); Cryptosporidium Not Detected (NotDetected); Cyclospora Cayetanesis Not Detected (NotDetected); Entamoeba histolytica Not Detected (NotDetected); Enteroaggregative E coli Not Detected (NotDetected); Enteropathogenic E coli Not Detected (NotDetected); Enterotoxigenic E coli Not Detected (NotDetected); Giardia lamblia Not Detected (NotDetected); Norovirus Not Detected (NotDetected); Plesimonas Shigalloides, PCR Not Detected (NotDetected); Rotavirus A Not Detected (NotDetected); Salmonella, PCR Not Detected (NotDetected); Sapovirus Not Detected (NotDetected); Shiga-like toxin E coli Not Detected (NotDetected); Shigella Enterovasive E coli Not Detected (NotDetected); Vibrio Cholerae Not Detected (NotDetected); Vibrio, PCR Not Detected (NotDetected); Yersinia Entercolitica, PCR Not Detected (NotDetected)
== END ==
PROVIDERS: Visit Provider Family Medicine
DX: R19.7 Diarrhea, unspecified (principal)
CPT/HCPCS: 87507

== ENCOUNTER → 2020-05-28 16:13 | Outpatient (CLI) | payer BC, SELFPAY ==
--- NOTE | 2020-05-28 16:24 | XR_ITS ---
PROCEDURE: XR CHEST 2V CLINICAL HISTORY: PNEUMONIA COMPARISON: CR CXR CHEST(2 VIEWS-NOT PORTABLE) from 03/26/2014 CR CXR CHEST(2 VIEWS-NOT PORTABLE) from 06/22/2016 CR XR CHEST 2V from 08/03/2019 FINDINGS: The cardiomediastinal silhouette and pulmonary vascularity are within normal limits. The lungs are clear without infiltrates, suspicious nodules, or pleural effusions. No acute bony abnormalities. IMPRESSION: No acute findings. Dictated by: Mendoza Teran MD 05/28/2020 17:20 Mendoza Teran MD in [place] 05/28/2020 17:20
[2020-05-28 17:40] LABS: Basophils # 0.1 K/mm3 (0-0.2); Basophils % 0.5 % (0.1-2.0); Eosinophils # 0.3 K/mm3 (0.0-0.4); Eosinophils % 1.8 % (0.1-12.0); Hematocrit 42.8 % (37.0-47.0); Hemoglobin 13.8 g/dL (12.2-16.2); Lymphocytes # 3.3 K/mm3 (0.7-4.5); Lymphocytes % 23.5 % (10-50); Mean Corpuscular HGB Conc 32.3 g/dL (31.8-35.4); Mean Corpuscular Hemoglobin 31.7 pg (27.0-31.2); Mean Platelet Volume 6.8 fl (7.4-10.4); Monocytes # 0.6 K/mm3 (0.1-1.0); Monocytes % 4.2 % (1.7-9.3); Neutrophils # 9.9 K/mm3 (1.8-7.8); Platelet Count 382 K/mm3 (142-424); Red Blood Count 4.37 M/mm3 (4.20-5.40); Red Cell Distribution Width 13.2 % (11.5-17.5); White Blood Count 14.2 K/mm3 (4.8-10.8)
== END ==
PROVIDERS: PCP Nurse Practitioner Family; Visit Provider Nurse Practitioner Family
DX: J18.9 Pneumonia, unspecified organism (principal)
CPT/HCPCS: 36415; 71046; 85025

== ENCOUNTER → 2020-06-03 10:32 | Outpatient (CLI) | payer BC, SELFPAY ==
[2020-06-03 11:09] LABS: Basophils # 0.1 K/mm3 (0-0.2); Basophils % 0.5 % (0.1-2.0); Eosinophils # 0.3 K/mm3 (0.0-0.4); Eosinophils % 1.9 % (0.1-12.0); Hematocrit 42.1 % (37.0-47.0); Hemoglobin 13.5 g/dL (12.2-16.2); Lymphocytes # 2.8 K/mm3 (0.7-4.5); Lymphocytes % 20.3 % (10-50); Mean Corpuscular HGB Conc 32.2 g/dL (31.8-35.4); Mean Corpuscular Hemoglobin 31.1 pg (27.0-31.2); Mean Corpuscular Volume 96.6 fl (81-99); Mean Platelet Volume 6.6 fl (7.4-10.4); Monocytes # 0.6 K/mm3 (0.1-1.0); Neutrophils # 10.3 K/mm3 (1.8-7.8); Neutrophils % 73.3 % (37.0-80.0); Platelet Count 425 K/mm3 (142-424); Red Blood Count 4.35 M/mm3 (4.20-5.40); Red Cell Distribution Width 13.3 % (11.5-17.5)
== END ==
PROVIDERS: Visit Provider Nurse Practitioner Family
DX: D72.829 Elevated white blood cell count, unspecified (principal)
CPT/HCPCS: 36415; 85025

== ENCOUNTER 2020-08-01 17:02 | Emergency (ER) | payer BC, SELFPAY ==
[2020-08-01 18:10] VITALS: BP 137/80; PULSE 104; RESP 16; TEMP 36.3; O2SAT 95; BMI 34.8
--- NOTE | 2020-08-01 18:13 | HMH.EDUTC ---
[facility] [place]ression: Viral syndrome, Exposure to COVID-19 virus Disposition: Home, Self-Care Condition on Discharge: Good Instructions: Preventing the Spread of Coronavirus Discharge Instructions Additional Instructions: Drink plenty of fluids. Take tylenol for pain or fever. Return if you begin to have difficulty breathing. Follow up with your regular doctor. GO TO THE ER FOR ANY WORSENING SYMPTOMS Prescriptions: Ondansetron [Zofran 4mg ODT] 4 mg PO Q8HP PRN #20 tab.rapdis PRN Reason: Nausea Transmission Status: Received by [facility] #[id number] Benzonatate [Tessalon Perle 100mg Cap] 100 mg PO TIDP PRN #30 cap PRN Reason: Cough Transmission Status: Received by [facility] #[id number] Azithromycin [Z-Dilshad 250mg Tab*] 250 mg PO UD DOSE PK #6 tab Transmission Status: Received by [facility] #[id number] Referrals: Misbah Talavera MD [Primary Care Provider] - Forms: Work/School Release Time of Disposition: 18:14 Medical Decision Making - Medical Records Medical records reviewed: No: I reviewed the patient's medical records. - Jace Inquiry Pt receiving controlled substance: No Vital Signs: 08/01/20 18:10 08/01/20 18:19 Temperature 97.4 F L 97.4 F L Temperature Source Oral Pulse Rate 104 H Pulse Rate [Right Brachial] 104 H Respiratory Rate 16 16 Blood Pressure 137/80 Blood Pressure [Right Arm] 137/80 Blood Pressure Mean [Right Arm] 99 Blood Pressure Source [Right Arm] Automatic Cuff Blood Pressure Position [Right Arm] Sitting 02 Sat by Pulse Oximetry 95 Oxygen Delivery Method Room Air Orders (Tests/Meds): ORDERS Category Date Time Status Covid-19 Nasal PCR Sendout Reynold Routine Lab 08/01/20 17:50 [place] [facility] [place] - General Stated complaint: covid test, has symptoms Time Seen by Provider: 08/01/20 18:13 Mode of Arrival: Ambulatory Source of Information: Patient Limitations: No Limitations Description of Symptoms (Recalled from Triage Doc. by RN): PATIENT REQUESTING COVID TEST D/T EXPOSURE; C/O COUGH AND SORE THROAT HEENT Symptoms (Recalled from RN notes): No Resp Symptoms (Recalled from RN notes): No Skin Symptoms (Recalled from RN notes): No MS Symptoms (Recalled from RN notes): No Functional Status (Recalled from RN notes): WNL - History of Present Illness Provider Complaint: She states that for the past 1 day she has had cough, nausea, body aches and chilling. She has been exposed to covid-19 in her home. - Related Data Home Medications Medication Instructions Recorded Confirmed SUMAtriptan succinate [Imitrex] 100 mg PO DAILY PRN 09/01/18 03/21/20 Trazodone HCl 150 mg PO HS 09/01/18 03/21/20 fluoxetine 90 mg capsule,delayed 90 mg PO QWEEK 07/12/19 03/21/20 release Previous Rx's Medication Instructions Recorded Amoxicillin/Potassium Clav 1 tab PO Q12H 10 Days #20 tab 03/21/20 [Augmentin 875-125 Tablet] Fluticasone Propionate [Flonase 1 - 2 spr NS DAILY #1 bottle 03/21/20 50mcg nasal spray 16gm] Azithromycin [Z-Dilshad 250mg Tab*] 250 mg PO UD DOSE PK #6 tab 08/01/20 Benzonatate [Tessalon Perle 100mg 100 mg PO TIDP PRN #30 cap 08/01/20 Cap] Ondansetron [Zofran 4mg ODT] 4 mg PO Q8HP PRN #20 tab.rapdis 08/01/20 Allergies Allergy/AdvReac Type Severity Reaction Status Date / Time No Known Allergies Allergy Verified 03/21/20 13:41 - Worker's Comp Is this a Worker's Comp case?: No [facility] History - Hepatitis A Screen Drug use history?: No High risk sexual behaviors?: No History of sexually transmitted infection?: No Currently employed?: No Childcare worker?: No Do you have indoor plumbing?: Yes Do you have electricity?: Yes Attestation statement:: This patient has been screened for Hepatitis A risk factors. I have reviewed the patient's past medical history: Yes Medical History: Reports:: Anxiety, Migraine Denies:: Cancer, Diabetes Mellitus Type 1, Diabetes Mellitus Type 2,
[2020-08-01 18:19] VITALS: BP 137/80; PULSE 104; RESP 16; TEMP 36.3; O2SAT 95
[2020-08-03 14:13] LABS: Covid-19 Nasal PCR Sendout Lex Not Detected
== END 2020-08-01 18:24 | disposition home or self-care (01) ==
PROVIDERS: Emergency Provider Nurse Practitioner Family; PCP Family Medicine
DX: Z20.828 Contact with and (suspected) exposure to other viral communicable diseases (principal); B34.9 Viral infection, unspecified; F41.9 Anxiety disorder, unspecified; Z79.899 Other long term (current) drug therapy
CPT/HCPCS: 99201; U0004

== ENCOUNTER → 2020-08-20 15:16 | Outpatient (CLI) | payer BC, SELFPAY ==
--- NOTE | 2020-08-20 15:59 | XR_ITS ---
PROCEDURE: XR CHEST 2V CLINICAL HISTORY: BRONCHITIS COMPARISON: CR CXR CHEST(2 VIEWS-NOT PORTABLE) from 06/22/2016 CR XR CHEST 2V from 08/03/2019 CR XR CHEST 2V from 05/28/2020 FINDINGS: The cardiomediastinal silhouette and pulmonary vascularity are within normal limits. The lungs are clear without infiltrates, suspicious nodules, or pleural effusions. No acute bony abnormalities. IMPRESSION: No acute findings. Dictated by: Dr. Christian Skinner MD 08/20/2020 17:07 Dr. Christian Skinner MD in [place] 08/20/2020 17:07
[2020-08-20 16:17] LABS: Basophils # 0.1 K/mm3 (0-0.2); Basophils % 0.5 % (0.1-2.0); Eosinophils # 0.2 K/mm3 (0.0-0.4); Eosinophils % 1.9 % (0.1-12.0); Hematocrit 44.2 % (37.0-47.0); Hemoglobin 14.7 g/dL (12.2-16.2); Lymphocytes # 2.7 K/mm3 (0.7-4.5); Lymphocytes % 24.8 % (10-50); Mean Corpuscular HGB Conc 33.3 g/dL (31.8-35.4); Mean Corpuscular Hemoglobin 31.9 pg (27.0-31.2); Mean Corpuscular Volume 95.9 fl (81-99); Mean Platelet Volume 7.7 fl (7.4-10.4); Monocytes # 0.4 K/mm3 (0.1-1.0); Monocytes % 3.9 % (1.7-9.3); Neutrophils # 7.5 K/mm3 (1.8-7.8); Neutrophils % 68.8 % (37.0-80.0); Platelet Count 360 K/mm3 (142-424); Red Cell Distribution Width 14.3 % (11.5-17.5); White Blood Count 10.9 K/mm3 (4.8-10.8)
[2020-08-20 16:49] LABS: Strep Scrn Group A (Rapid) Negative (Negative)
[2020-08-22 12:31] LABS: Covid-19 Nasal PCR Sendout P&C Negative
== END ==
PROVIDERS: Visit Provider Nurse Practitioner Family
DX: Z03.818 Encounter for observation for suspected exposure to other biological agents ruled out (principal); J40 Bronchitis, not specified as acute or chronic
CPT/HCPCS: 36415; 71046; 85025; 87275; 87276; 87430; U0004

== ENCOUNTER 2020-09-09 20:31 | Emergency (ER) | payer BC, SELFPAY ==
--- NOTE | 2020-09-09 20:30 | ECG_ITS ---
APPROVED REPORT Exam: Resting ECG HR:100 bpm ECG Measurements Heart Rate 100 AXES W[place] 126 P 57 QRSd 74 QRS 56 QT 360 T 54 QTc 464 Conclusion Normal sinus rhythm Normal ECG Electronically signed by : Bassam Gill, 09/10/2020 21:01:10
[2020-09-09 20:32] VITALS: BP 132/71; PULSE 101; RESP 14; TEMP 36.9; O2SAT 97; BMI 33.9
--- NOTE | 2020-09-09 20:41 | XR_ITS ---
PROCEDURE: XR CHEST 2V CLINICAL HISTORY: cp Chest pain COMPARISON: CR CXR CHEST(2 VIEWS-NOT PORTABLE) from 04/18/2013 CR XR CHEST 2V from 08/03/2019 CR XR CHEST 2V from 05/28/2020 CR XR CHEST 2V from 08/20/[address] ABDOMEN PELVIS W CON from 09/09/2020 FINDINGS: The cardiomediastinal silhouette and pulmonary vascularity are within normal limits. The lungs are clear without infiltrates, suspicious nodules, or pleural effusions. No acute bony abnormalities. IMPRESSION: No acute findings. Dictated by: Mendoza Teran MD 09/10/2020 05:13 Mendoza Teran MD in [place] 09/10/2020 05:13
--- NOTE | 2020-09-09 20:47 | CT_ITS ---
PROCEDURE: CT ABDOMEN PELVIS W CON CLINICAL INDICATION: EPIGASTRIC PAIN Abdominal pain COMPARISON: CT ABDPELWW CT abdomen pelvis wo/w con from 01/11/2019 TECHNIQUE: IV Contrast: 75ML Isovue 370 Oral Contrast None Axial images obtained with sagittal and coronal reformats. All CT scans at the facility use one or more dose reduction, viz: automated exposure control, ma/kV adjustment per patient size (including targeted exams where dose is matched to indication, i.e. head), or iterative reconstruction technique. FINDINGS: LOWER THORAX: No acute finding ABDOMEN & PELVIS: The liver, spleen, adrenal glands, pancreas, and kidneys have an unremarkable appearance. There is a small umbilical hernia containing fat. No evidence of appendicitis or diverticulitis. There is an IUD in place. There is mild prominence of the right ovary somewhat less so than when compared to the previous exam. No acute bony findings. IMPRESSION: No acute finding Dictated by: Mendoza Teran MD 09/10/2020 06:14 Mendoza Teran MD in [place] 09/10/2020 06:14
[2020-09-09 20:53] LABS: Basophils # 0.1 K/mm3 (0-0.2); Basophils % 0.7 % (0.1-2.0); Eosinophils # 0.3 K/mm3 (0.0-0.4); Hematocrit 45.1 % (37.0-47.0); Hemoglobin 15.5 g/dL (12.2-16.2); Lymphocytes # 4.1 K/mm3 (0.7-4.5); Lymphocytes % 32.5 % (10-50); Mean Corpuscular HGB Conc 34.3 g/dL (31.8-35.4); Mean Corpuscular Hemoglobin 32.5 pg (27.0-31.2); Mean Corpuscular Volume 94.9 fl (81-99); Mean Platelet Volume 7.5 fl (7.4-10.4); Monocytes # 0.5 K/mm3 (0.1-1.0); Monocytes % 3.6 % (1.7-9.3); Neutrophils # 7.7 K/mm3 (1.8-7.8); Neutrophils % 61.2 % (37.0-80.0); Platelet Count 401 K/mm3 (142-424); Red Blood Count 4.76 M/mm3 (4.20-5.40); Red Cell Distribution Width 14.1 % (11.5-17.5); White Blood Count 12.6 K/mm3 (4.8-10.8)
[2020-09-09 20:54] LABS: Chloride 102 mmol/L (98-107); Potassium 3.6 mmoL/L (3.5-5.1); Sodium 137 mmol/L (136-145)
[2020-09-09 20:57] LABS: Anion Gap 10.6 mEq/L (5-15); Blood Urea Nitrogen 10 mg/dl (7-17); Calcium 9.3 mg/dl (8.4-10.2); Carbon Dioxide 28 mmol/L (22.0-30.0); Creatinine Clearance Estimated 225 mL/min (50-200); Estimated Glomerular Filt Rate 111 ml/min (>60); GFR (African American) 135 ML/MIN (>60); Glucose 162 mg/dl (74-100)
[2020-09-09 21:02] LABS: C-Reactive Protein 13.2 mg/L (0-4)
[2020-09-09 21:11] LABS: Urine Pregnancy, HCG Qual. Negative (Negative)
[2020-09-09 21:11] LABS: Amylase 54 U/L (30-110)
[2020-09-09 21:12] LABS: Alanine Aminotransferase 27 U/L (12-78); Albumin Level 4.1 g/dl (3.5-5.0); Alkaline Phosphatase 93 U/L (38-126); Aspartate Amino Transferase 25 U/L (14-36); Bilirubin,Direct 0.2 mg/dl (0.0-0.4); Bilirubin,Indirect 0.2 mg/dL (0.0-0.9); Bilirubin,Total 0.4 mg/dl (0.2-1.3); Bilirubin,Unconjugated 0.2 mg/dL (0.0-1.1); Lipase 382 U/L (23-300); Total Protein,Serum 7.2 g/dl (6.3-8.2)
[2020-09-09 21:12] LABS: Troponin I < 0.01 ng/ml (0.00-0.034)
[2020-09-09 21:15] LABS: Procalcitonin 0.047 ng/mL (0.0-2.0)
--- NOTE | 2020-09-09 21:37 | HMH.EDCP ---
ED Disposition Clinical Impression: Atypical chest pain Disposition: Home, Self-Care Condition on Discharge: Good Instructions: DI for Atypical Chest Pain Additional Instructions: call pcp for follow up Referrals: Misbah Talavera MD [Primary Care Provider] - - Critical Care Critical Care Time: No Attestation: On 09/09/20, the high probability of a clinically significant, sudden or life threatening deterioration of the following system(s) required my full and direct attention, intervention and personal management. The time I documented below is in addition to time spent performing reported procedures but includes the following listed in this critical care notation. Medical Decision Making - Medical Records Medical records reviewed: Yes: I reviewed the patient's medical records. - Jace Inquiry Pt receiving controlled substance: No Vital Signs: 09/09/20 20:32 Temperature 98.4 F Temperature Source Oral Pulse Rate [Right] 101 H Respiratory Rate 14 Blood Pressure [Right Arm] 132/71 Blood Pressure Mean [Right Arm] 91 02 Sat by Pulse Oximetry 97 - Lab Data Lab results reviewed: Yes: I reviewed the patient's lab results. Lab Results 09/09/20 20:40: WBC 12.6 H, RBC 4.76, Hgb 15.5, Hct 45.1, MCV 94.9, MCH 32.5 H, MCHC 34.3, RDW 14.1, Plt Count 401, MPV 7.5, Neut % (Auto) 61.2, Lymph % (Auto) 32.5, Travis % (Auto) 3.6, Eos % (Auto) 2.0, Baso % (Auto) 0.7, Neut # (Auto) 7.7, Lymph # (Auto) 4.1, Travis # (Auto) 0.5, Eos # (Auto) 0.3, Baso # (Auto) 0.1 09/09/20 20:40: Sodium 137, Potassium 3.6, Chloride 102, Carbon Dioxide 28, Anion Gap 10.6, BUN 10, Creatinine 0.60, Estimated Creat Clear 225, Estimated GFR 111, Est GFR ( Amer) 135, Glucose 162 H, Calcium 9.3, Troponin I < 0.01, C-Reactive Protein 13.2 H 09/09/20 20:40: ESR 72 H 09/09/20 20:40: Procalcitonin 0.047 09/09/20 20:45: Total Bilirubin 0.4, Direct Bilirubin 0.2, Conjugated Bilirubin 0.0, Indirect Bilirubin 0.2, Unconjugated Bilirubin 0.2, AST 25, ALT 27, Alkaline Phosphatase 93, Total Protein 7.2, Albumin 4.1, Amylase 54, Lipase 382 H 09/09/20 20:53: Urine HCG, Qual Negative Result diagrams: 09/09/20 20:40 09/09/20 20:40 Orders (Tests/Meds): ED MEDICATIONS Generic Name Dose Route Start Last Admin Trade Name Freneda PRN Reason Stop Dose Admin Sodium Chloride 1,000 mls @ 999 mls/hr 09/09/20 20:45 09/09/20 20:46 Sod Chlor 0.9% 1000ml Bag IV 09/09/20 21:45 999 mls/hr .Q1H1M SUMEET Administration Sodium Chloride 8 ml 09/09/20 20:42 Sodium Chloride 0.9% 10ml Vial IV 10/09/20 20:41 NEEDED PRN dilute pepcid Discontinued Medications Generic Name Dose Route Start Last Admin Trade Name Keyana PRN Reason Stop Dose Admin Aspirin 324 mg 09/09/20 20:44 09/09/20 20:45 Aspirin 81mg Chewable Tablet PO 09/09/20 20:45 324 mg ONCE ONE Administration Famotidine 20 mg 09/09/20 20:42 09/09/20 20:45 Famotidine 20mg/2ml Vial IV 09/09/20 20:43 20 mg ONCE ONE Administration Iopamidol 75 ml 09/09/20 21:31 09/09/20 21:33 Iopamidol-370 (76%);100ml Bottle IV 09/09/20 21:32 75 ml ONCE ONE Administration Metoclopramide HCl 10 mg 09/09/20 20:42 09/09/20 20:45 Metoclopramide Hcl 10mg/2ml Vial IVP 09/09/20 20:43 10 mg ONCE ONE Administration Sodium Chloride 10 ml 09/09/20 21:31 09/09/20 21:33 Sodium Chloride 0.9% 10ml Syr (Rad Only) IV 09/09/20 21:32 10 ml ONCE ONE Administration ORDERS Category Date Time Status CT abdomen pelvis w con Stat Cat Scan 09/09/20 20:47 Taken XR chest 2V Stat Exams 09/09/20 20:41 Taken Troponin I Q3H Lab 09/09/20 23:45 Ordered Troponin I Q3H Lab 09/10/20 02:45 Ordered Urinalysis and Microscopic Stat Lab 09/09/20 21:53 Received 12-lead EKG Request [ECG Request by /Faviola] Stat Y 09/09/20 20:41 Ordered - Radiology Data #1 Image(s): Chest Image Reviewed: Yes I reviewed the patient's radiology image Preliminary Findings: Normal/NAD
[2020-09-09 21:39] LABS: Erythrocyte Sedimentation Rate 72 mm/hr (0-20)
[2020-09-09 22:11] LABS: Microscopic, Urine URINE MICROSCOPIC (MICROSCOPIC)
[2020-09-09 22:13] LABS: Appearance,Urine CLEAR (Clear); Bilirubin,Urine Negative (Negative); Blood, Urine 1+ (Negative); Color,Urine YELLOW (Yellow); Glucose,Urine (UA) TRACE (Negative); Ketones,Urine Negative (Negative); Leukocyte Esterase,Urine Negative (Negative); Nitrate,Urine Negative (Negative); Protein,Urine Negative (Negative); Specific Gravity, Urine >= 1.030 (1.005-1.030); Urobilinogen,Urine 0.2 EU/dl (0.2)
[2020-09-09 22:26] VITALS: BP 135/76; PULSE 89; RESP 18; TEMP 36.7; O2SAT 98
[2020-09-09 22:33] LABS: Amorphous Sediment,Urine 1+ /lpf; Bacteria,Urine 1+ /lpf; Calcium Oxalate Crystals,Urine 2+ /lpf; Mucus,Urine 1+ /lpf
== END 2020-09-09 22:28 | disposition home or self-care (01) ==
PROVIDERS: Emergency Provider Emergency Medicine; PCP Family Medicine
DX: R07.89 Other chest pain (principal); R10.13 Epigastric pain; F41.9 Anxiety disorder, unspecified; G43.709 Chronic migraine without aura, not intractable, without status migrainosus; F17.210 Nicotine dependence, cigarettes, uncomplicated; Z79.899 Other long term (current) drug therapy
CPT/HCPCS: 71046; 74177; 80048; 80076; 81001; 81025; 82150; 83690; 84145; 84484; 85025; 85651; 86140; 93005; 96365; 96375; 99283; Q9967

== ENCOUNTER → 2020-09-16 10:13 | Outpatient (CLI) | payer BC, SELFPAY ==
--- NOTE | 2020-09-16 10:27 | FL_ITS ---
PROCEDURE: FL UPPER GI W AIR CLINICAL INDICATION: ABD PAIN Right upper quadrant pain COMPARISON: No exams were available for comparison TECHNIQUE: FLUOROSCOPY TIME : 1 minutes and 22 seconds FINDINGS: The esophagus, stomach, and duodenum have an unremarkable appearance.There is no evidence of hiatal hernia. No ulcer or mass evident. No mucosal abnormalities apparent. There is normal peristalsis. The duodenal C-loop is nondisplaced. IMPRESSION: Negative upper GI Dictated by: Mendoza Teran MD 09/16/2020 18:38 Mendoza Teran MD in [place] 09/16/2020 18:38
--- NOTE | 2020-09-16 10:27 | US_ITS ---
PROCEDURE: US ABDOMEN LIMITED CLINICAL INDICATION: ABD PAIN Elevated pancreatic enzymes COMPARISON: No exams were available for comparison FINDINGS: PANCREAS: Unremarkable. No obvious mass or abnormal fluid collection. No ductal dilatation. The tail of pancreas is not well delineated. LIVER: Diffuse increased echogenicity of the liver with poor through transmission of sound consistent with hepatic steatosis. No focal liver lesion demonstrated. There is appropriate direction of blood flow within non dilated portal vein. RIGHT KIDNEY: Unremarkable. Normal size and echogenicity. No hydronephrosis GALLBLADDER: No gallstones, gallbladder wall thickening, pericholecystic fluid, or biliary dilatation. IMPRESSION: Fatty liver otherwise negative right upper quadrant ultrasound. No gallstones Dictated by: Mendoza Teran MD 09/16/2020 19:04 Mendoza Teran MD in [place] 09/16/2020 19:04
== END ==
PROVIDERS: PCP Family Medicine; Visit Provider Nurse Practitioner Family
DX: R10.11 Right upper quadrant pain (principal)
CPT/HCPCS: 74246; 76705

== ENCOUNTER → 2020-09-19 08:29 | Outpatient (CLI) | payer BC, SELFPAY ==
--- NOTE | 2020-09-19 08:40 | CT_ITS ---
PROCEDURE: CT CHEST WO CON CLINICAL INDICATION: CHEST PAIN Increased pulse rate Chest pain x1 weeks COMPARISON: No exams were available for comparison TECHNIQUE: Axial images obtained with sagittal and coronal reformats. All CT scans at the facility use one or more dose reduction, viz: automated exposure control, ma/kV adjustment per patient size (including targeted exams where dose is matched to indication, i.e. head), or iterative reconstruction technique. FINDINGS: HEART AND MEDIASTINAL STRUCTURES: There are few small mediastinal lymph nodes. No mediastinal mass. LUNGS AND PLEURAL SPACES: There is some hyperinflation with attenuation of the peripheral pulmonary vessels suggesting small airway disease such as COPD asthma or bronchitis. There is evidence of old granulomatous disease. There are a few small peripheral patchy areas ground-glass attenuation in the left upper lobe anteriorly and in the right middle lobe anteriorly. BONY STRUCTURES: No acute bony abnormalities apparent. UPPER ABDOMEN: Unremarkable. ADDITIONAL FINDINGS: No other significant abnormalities. IMPRESSION: There are few small patchy areas of ground-glass attenuation in the left upper lobe anteriorly and right middle lobe anteriorly. These are nonspecific and could be due to inflammatory or infectious process. Dictated by: Mendoza Teran MD 09/20/2020 10:39 Mendoza Teran MD in [place] 09/20/2020 10:39
--- NOTE | 2020-09-19 09:02 | CA_ITS ---
APPROVED REPORT EXAM: Comprehensive 2D, Doppler, and color-flow Echocardiogram Window Glass Cutter Off: Marcia Castillo CRT Ht: 6 ft 0 in Wt: 250lbs BSA: 2.34 BP: 132/71 mmHg Indications: Chest Pain, tachycardia, smoker. 2D Dimensions LVOT 1.82 cm (M/F) 1.5-2.5 LVEF (Patterson's) 56.50 % LV Volume 122.30 mL M-Mode Dimensions RVDd 2.39 cm (0.9-2.6) LA Diam 4.39 cm (1.9-4.0) LVDd 5.09 cm (3.5-5.7) Ao Diam 3.48 cm (2.0-3.7) LVDs 3.25 cm (3.5-5.7) IVSd 1.35 cm (0.6-1.1) PWd 0.95 cm (0.6-1.1) EF (Teich) 65.50% FS 36.10% EDV (Teich) 123.20 mL ESV (Teich) 42.50 mL LV Diastology E Decel Time 163.00 (160-240 msec) E/A Ratio 0.80 MED E' 7.80 (< 7 cm/sec) MED A' 12.90 cm/s E'/MED E' Ratio 18.55 (>14) LAT E' 9.30 (<10 cm/sec) LAT A' 16.20 cm/s E/LAT E' Ratio 15.56 (>14) Aortic Valve AO Peak GR. 8.00 mmHg Mitral Valve MV E Max Bradly. 145.00 (40-130 cm/s) MV A Velocity 182.00 (40-130 cm/s) E/A Ratio 0.80 MV Decel. Time 163.00 (160-240 ms) MV PHT 48.00 ms Tricuspid Valve TR P. Velocity 259.00 cm/s RAP Estimate 10.00 mmHg RVSP 36.80 mmHg Left Ventricle Left atrium is mildly enlarged, left ventricle is normal size, left ventricle wall thickness is upper limit of normal, there is preserved left ventricular systolic function, visually estimated ejection fraction 55% with no regional wall motion abnormality, grade 1 diastolic dysfunction seen with tissue Doppler evidence of raise left atrial pressure. Right Ventricle Right atrium and right ventricle are normal size and contractility. Aortic Valve Aortic valve is minimally thickened and fibrosed. There is no aortic stenosis or aortic insufficiency. Mitral Valve Mitral valve is grossly normal, there is trace mitral regurgitation. Tricuspid Valve Tricuspid valve grossly normal, there is trace tricuspid regurgitation, tricuspid regurgitation jet velocity is inadequate for calculation of the right ventricular systolic pressure. Pulmonic Valve Pulmonic valve is poorly visualized. Great Vessels Aortic root is normal size. Pericardium No significant pericardial effusion noted. Conclusion 1. Mildly enlarged left atrium, normal left ventricular size, visually estimated ejection fraction 55% with no regional wall motion abnormality, grade 1 diastolic dysfunction seen with tissue Doppler evidence of raise left atrial pressure. 2. Trace mitral and tricuspid regurgitation. 3. No significant pericardial effusion noted. Electronically signed by : Dennis Fernandes, 09/19/2020 17:57:55
== END ==
PROVIDERS: PCP Family Medicine; Visit Provider Nurse Practitioner Family
DX: R07.1 Chest pain on breathing (principal); R00.0 Tachycardia, unspecified
CPT/HCPCS: 71250; 93306

== ENCOUNTER 2020-11-26 11:11 | Emergency (ER) | payer BC, SELFPAY ==
[2020-11-26] VITALS (7 sets, daily range): BP systolic 137–165; BP diastolic 75–106; PULSE 78–89; RESP 20–23; TEMP 36.6–37.2; O2SAT 95–98; BMI 37.3
--- NOTE | 2020-11-26 11:16 | ECG_ITS ---
APPROVED REPORT Exam: Resting ECG HR:85 bpm ECG Measurements Heart Rate 85 AXES ME 118 P 4 QRSd 76 QRS 26 QT 346 T 23 QTc 411 Conclusion Normal sinus rhythm Normal ECG Electronically signed by : Bassam Gill, 11/26/2020 15:09:52
--- NOTE | 2020-11-26 11:21 | XR_ITS ---
PROCEDURE: XR CHEST 2V CLINICAL HISTORY: cough COMPARISON: CR XR CHEST 2V from 05/28/2020 CR XR CHEST 2V from 08/20/2020 CR XR CHEST 2V from 09/09/[address] CHEST WO CON from 09/19/2020 FINDINGS: The cardiomediastinal silhouette and pulmonary vascularity are within normal limits. The lungs are clear without infiltrates, suspicious nodules, or pleural effusions. No acute bony abnormalities. IMPRESSION: No acute findings. Dictated by: Mendoza Teran MD 11/26/2020 12:14 Mendoza Teran MD in [place] 11/26/2020 12:14
--- NOTE | 2020-11-26 11:23 | HMH.EDGENADL ---
ED Disposition Clinical Impression: Pneumonia Qualifiers: Pneumonia type: due to unspecified organism Laterality: unspecified laterality Lung location: unspecified part of lung Qualified Code(s): J18.9 - Pneumonia, unspecified organism Disposition: Home, Self-Care Condition on Discharge: Fair Instructions: DI for Atypical Pneumonia, DI for COVID-19 (Suspected or Confirmed ) Additional Instructions: You have been evaluated for pneumonia. You have been tested for COVID-19. Results should be back today. Please continue taking antibiotics as prescribed by your primary care doctor. Take steroids. Take Tessalon Perles for cough. Monitor your symptoms. Return to the emergency department for any new or worsening symptoms. Prescriptions: Benzonatate [Tessalon Perle 100mg Cap*] 100 mg PO TID PRN #[id number] cap PRN Reason: Cough Transmission Status: Received by [facility] #[id number] Referrals: Brii Rios APRN [Primary Care Provider] - Time of Disposition: 13:51 - Critical Care Critical Care Time: No Attestation: On , the high probability of a clinically significant, sudden or life threatening deterioration of the following system(s) required my full and direct attention, intervention and personal management. The time I documented below is in addition to time spent performing reported procedures but includes the following listed in this critical care notation. Medical Decision Making - Medical Records Medical records reviewed: Yes: I reviewed the patient's medical records. - Jace Inquiry Pt receiving controlled substance: No Vital Signs: 11/26/20 11:20 11/26/20 11:32 11/26/20 12:28 Temperature 98 F Temperature Source Oral Pulse Rate 83 83 Pulse Rate [Radial] 78 Respiratory Rate 20 20 20 Blood Pressure 142/84 H 151/75 H Blood Pressure [Right Arm] 165/106 H Blood Pressure Mean 103 101 Blood Pressure Mean [Right Arm] 125 Blood Pressure Source Blood Pressure Position Blood Pressure Position [Right Arm] Sitting 02 Sat by Pulse Oximetry 98 96 95 Oxygen Delivery Method Room Air Room Air 11/26/20 12:30 11/26/20 13:00 11/26/20 13:31 Temperature Temperature Source Pulse Rate 86 89 89 Pulse Rate [Radial] Respiratory Rate 23 22 Blood Pressure 152/94 H 147/90 H 137/89 Blood Pressure [Right Arm] Blood Pressure Mean 99 102 101 Blood Pressure Mean [Right Arm] Blood Pressure Source Blood Pressure Position Blood Pressure Position [Right Arm] 02 Sat by Pulse Oximetry 95 97 98 Oxygen Delivery Method Room Air 11/26/20 14:35 Temperature 98.9 F Temperature Source Oral Pulse Rate 89 Pulse Rate [Radial] Respiratory Rate 20 Blood Pressure 137/89 Blood Pressure [Right Arm] Blood Pressure Mean Blood Pressure Mean [Right Arm] Blood Pressure Source Automatic Cuff Blood Pressure Position Sitting Blood Pressure Position [Right Arm] 02 Sat by Pulse Oximetry Oxygen Delivery Method Room Air - Lab Data Lab Results 11/26/20 11:20: WBC 19.0 H, RBC 4.34, Hgb 13.7, Hct 41.3, MCV 95.1, MCH 31.6 H, MCHC 33.2, RDW 13.8, Plt Count 356, MPV 7.4, Neut % (Auto) 79.9, Lymph % (Auto) 15.0, Preston % (Auto) 3.8, Eos % (Auto) 0.5, Baso % (Auto) 0.8, Neut # (Auto) 15.2 H, Lymph # (Auto) 2.9, Preston # (Auto) 0.7, Eos # (Auto) 0.1, Baso # (Auto) 0.2, Total Counted 100, Neutrophils % (Manual) 78 H, Lymphocytes % (Manual) 19, Monocytes % (Manual) 3, Platelet Estimate Normal, RBC Morphology Normal 11/26/20 11:20: VBG pH 7.41, VBG pCO2 35.6, VBG pO2 96.1 H, VBG HCO3 21.9 L, VBG Total CO2 23.0, VBG O2 Saturation 97.7 H, VBG Base Excess -2.8 L 11/26/20 11:20: Sodium 137, Potassium 4.2, Chloride 103, Carbon Dioxide 25, Anion Gap 13.2, BUN 14, Creatinine 0.60, Estimated Creat Clear 245, Estimated GFR 111, Est GFR ( Amer) 134, Glucose 213 H, Calcium 9.2, Total Bilirubin 0.5, AST 20, ALT 26, Alkaline Phosphatase 78, C-Reactive Protein 8.8 H, Total Protein 7.3, Albumin 4.1, Globulin 3.2, Albumi
[2020-11-26 11:39] LABS: Basophils # 0.2 K/mm3 (0-0.2); Basophils % 0.8 % (0.1-2.0); Eosinophils # 0.1 K/mm3 (0.0-0.4); Eosinophils % 0.5 % (0.1-12.0); Hematocrit 41.3 % (37.0-47.0); Hemoglobin 13.7 g/dL (12.2-16.2); Lymphocytes # 2.9 K/mm3 (0.7-4.5); Mean Corpuscular HGB Conc 33.2 g/dL (31.8-35.4); Mean Corpuscular Hemoglobin 31.6 pg (27.0-31.2); Mean Corpuscular Volume 95.1 fl (81-99); Mean Platelet Volume 7.4 fl (7.4-10.4); Monocytes # 0.7 K/mm3 (0.1-1.0); Monocytes % 3.8 % (1.7-9.3); Neutrophils # 15.2 K/mm3 (1.8-7.8); Neutrophils % 79.9 % (37.0-80.0); Platelet Count 356 K/mm3 (142-424); Red Blood Count 4.34 M/mm3 (4.20-5.40); Red Cell Distribution Width 13.8 % (11.5-17.5)
[2020-11-26 11:46] LABS: VBG Base Excess -2.8 mmol/L (-2.4-2.3); VBG HCO3 21.9 mmol/L (23-30); VBG Oxygen Saturation 97.7 % (50-70); VBG PCO2 35.6 mmol/L (35-51); VBG PH 7.41 mmol/L (7.31-7.41); VBG PO2 96.1 mmol/L (28-40)
--- NOTE | 2020-11-26 11:52 | PC.NURSE ---
pt going to rad
[2020-11-26 11:59] LABS: MANUAL DIFFERENTIAL MANUAL DIFFERENTIAL (MANUAL DIFF)
[2020-11-26 12:03] LABS: Alanine Aminotransferase 26 U/L (12-78); Albumin Level 4.1 g/dl (3.5-5.0); Albumin/Globulin Ratio 1.3 (1.1-1.8); Alkaline Phosphatase 78 U/L (38-126); Anion Gap 13.2 mEq/L (5-15); Aspartate Amino Transferase 20 U/L (14-36); Bilirubin,Total 0.5 mg/dl (0.2-1.3); Blood Urea Nitrogen 14 mg/dl (7-17); Calcium 9.2 mg/dl (8.4-10.2); Carbon Dioxide 25 mmol/L (22.0-30.0); Chloride 103 mmol/L (98-107); Creatinine Clearance Estimated 245 mL/min (50-200); Estimated Glomerular Filt Rate 111 ml/min (>60); GFR (African American) 134 ML/MIN (>60); Globulin 3.2 g/dL (1.3-3.2); Glucose 213 mg/dl (74-100); Potassium 4.2 mmoL/L (3.5-5.1); Sodium 137 mmol/L (136-145); Total Protein,Serum 7.3 g/dl (6.3-8.2)
[2020-11-26 12:08] LABS: C-Reactive Protein 8.8 mg/L (0-4)
--- NOTE | 2020-11-26 12:09 | CT_ITS ---
PROCEDURE: CT CHEST WO CON CLINICAL INDICATION: cough, infiltrate on cxr COMPARISON: CT CT CHEST WO CON from 09/19/2020 CR XR CHEST 2V from 11/26/2020 TECHNIQUE: Axial images obtained with sagittal and coronal reformats. All CT scans at the facility use one or more dose reduction, viz: automated exposure control, ma/kV adjustment per patient size (including targeted exams where dose is matched to indication, i.e. head), or iterative reconstruction technique. FINDINGS: There are scattered small mediastinal lymph nodes. Calcified nodes are present in the right hilum. Mildly prominent lymph nodes are present in the left axilla measuring 1.9 x 1.3 cm. There are patchy multifocal areas of ground-glass infiltrates within the left upper lobe, lingula, and right upper lobe. No effusions. No areas of cavitation. Borderline splenomegaly at 13 cm. No acute bony findings. IMPRESSION: Multifocal ground-glass infiltrates. This is nonspecific but may be seen with Covid19/atypical pneumonia. Dictated by: Mendoza Teran MD 11/26/2020 13:41 Mendoza Teran MD in [facility] 11/26/2020 13:41
[2020-11-26 12:22] LABS: Procalcitonin 0.031 ng/mL (0.0-2.0)
--- NOTE | 2020-11-26 12:37 | PC.NURSE ---
pt going to rad.
--- NOTE | 2020-11-26 13:01 | PC.NURSE ---
pt returning from rad.
[2020-11-26 13:57] LABS: Lymphocytes % 19 % (10-50); Monocytes % 3 % (2-9); Neutrophils % 78 % (42-76); Platelet Estimate Normal; RBC Morphology Normal; Total Cells Counted 100
[2020-11-26 14:22] LABS: Coronavirus 19 IgG Antibody Positive (Negative); Coronavirus 19 IgM Antibody Negative (Negative)
== END 2020-11-26 14:41 | disposition home or self-care (01) ==
PROVIDERS: Emergency Provider Emergency Medicine; PCP Nurse Practitioner Family
DX: J18.9 Pneumonia, unspecified organism (principal); F41.9 Anxiety disorder, unspecified; Z01.84 Encounter for antibody response examination; F17.210 Nicotine dependence, cigarettes, uncomplicated
CPT/HCPCS: 71046; 71250; 80053; 82803; 84145; 85007; 85025; 86140; 86328; 93005; 96365; 99283; U0003

== ENCOUNTER → 2020-12-11 10:28 | Outpatient (CLI) | payer BC, SELFPAY ==
--- NOTE | 2020-12-11 10:30 | XR_ITS ---
PROCEDURE: XR CHEST 2V CLINICAL HISTORY: PNEUMONIA COMPARISON: CR XR CHEST 2V from 08/20/2020 CR XR CHEST 2V from 09/09/[address] CHEST WO CON from 11/26/2020 CR XR CHEST 2V from 11/26/2020 FINDINGS: The cardiomediastinal silhouette and pulmonary vascularity are within normal limits. There is a patchy area of density in the right lung base overlying the right 5th rib anteriorly and could be due to a patchy area of infiltrate. No acute bony abnormalities. IMPRESSION: Suspect patchy area of infiltrate in the right lower lobe otherwise negative Dictated by: Mendoza Teran MD 12/11/2020 14:25 Mendoza Teran MD in [facility] 12/11/2020 14:25
== END ==
PROVIDERS: PCP Nurse Practitioner Family; Visit Provider Nurse Practitioner Family
DX: J18.9 Pneumonia, unspecified organism (principal)
CPT/HCPCS: 71046

== ENCOUNTER → 2020-12-24 16:24 | Outpatient (CLI) | payer BC, SELFPAY ==
[2020-12-24 16:52] LABS: Basophils # 0.1 K/mm3 (0-0.2); Basophils % 0.5 % (0.1-2.0); Eosinophils # 0.3 K/mm3 (0.0-0.4); Eosinophils % 3.1 % (0.1-12.0); Hematocrit 40.6 % (37.0-47.0); Hemoglobin 13.5 g/dL (12.2-16.2); Mean Corpuscular HGB Conc 33.3 g/dL (31.8-35.4); Mean Corpuscular Hemoglobin 31.6 pg (27.0-31.2); Mean Corpuscular Volume 94.8 fl (81-99); Mean Platelet Volume 7.7 fl (7.4-10.4); Monocytes # 0.4 K/mm3 (0.1-1.0); Monocytes % 3.8 % (1.7-9.3); Neutrophils # 5.6 K/mm3 (1.8-7.8); Neutrophils % 60.6 % (37.0-80.0); Platelet Count 324 K/mm3 (142-424); Red Blood Count 4.28 M/mm3 (4.20-5.40); White Blood Count 9.3 K/mm3 (4.8-10.8)
[2020-12-24 17:23] LABS: C-Reactive Protein 18.9 mg/L (0-4)
[2020-12-26 11:29] LABS: Immunoglobulin A, Qn 305 mg/dL (87-352)
[2020-12-26 12:51] LABS: Immunoglobulin M, Qn 167 mg/dL (26-217)
[2020-12-26 15:44] LABS: IgG, Subclass 1 435 mg/dL (248-810); IgG, Subclass 2 102 mg/dL (130-555); IgG, Subclass 3 74 mg/dL (15-102); Immunoglobulin G, Qn 728 mg/dL (586-1602)
[2020-12-26 16:40] LABS: IgG, Subclass 4 19 mg/dL (2-96)
[2020-12-27 17:08] LABS: Strongyloides IgG Antibody Negative (Negative)
[2020-12-30 04:58] LABS: D001-IgE D pteronyssinus <0.10 kU/L (Class 0); D002-IgE D farinae <0.10 kU/L (Class 0); E001-IgE Cat Dander <0.10 kU/L (Class 0); E005-IgE Dog Dander <0.10 kU/L (Class 0); G002-IgE Bermuda Grass <0.10 kU/L (Class 0); G006-IgE Timothy Grass <0.10 kU/L (Class 0); I006-IgE Cockroach, German <0.10 kU/L (Class 0); Immunoglobulin E, Total 20 IU/mL (6-495); M001-IgE Penicillium chrysogen <0.10 kU/L (Class 0); M002-IgE Cladosporium herbarum <0.10 kU/L (Class 0); M003-IgE Aspergillus fumigatus <0.10 kU/L (Class 0); M006-IgE Alternaria alternata <0.10 kU/L (Class 0); T001-IgE Maple/Box Elder <0.10 kU/L (Class 0); T003-IgE Common Silver Birch <0.10 kU/L (Class 0); T006-IgE Cedar, Mountain <0.10 kU/L (Class 0); T007-IgE Oak, White 0.15 kU/L (Class 0/I); T008-IgE Elm, American <0.10 kU/L (Class 0); T010-IgE Walnut <0.10 kU/L (Class 0); T011-IgE Maple Leaf Sycamore <0.10 kU/L (Class 0); T014-IgE Cottonwood <0.10 kU/L (Class 0); T015-IgE Ash, White <0.10 kU/L (Class 0); T022-IgE Pecan, Hickory <0.10 kU/L (Class 0); T070-IgE White Mulberry <0.10 kU/L (Class 0); W001-IgE Ragweed, Short 1.87 kU/L (Class III); W011-IgE Thistle, Russian <0.10 kU/L (Class 0); W014-IgE Pigweed, Common <0.10 kU/L (Class 0); W018-IgE Sheep Sorrel <0.10 kU/L (Class 0)
[2020-12-30 20:27] LABS: E072-IgE Mouse Urine <0.10 kU/L (Class 0); M003-IgE Aspergillus fumigatus <0.10 kU/L (Class 0)
[2020-12-30 22:59] LABS: Aspergillus flavus NEGATIVE; Aspergillus fumigatus NEGATIVE; Aspergillus niger NEGATIVE
[2020-12-31 20:36] LABS: Blastomyces Antibody NEGATIVE
== END ==
PROVIDERS: Visit Provider Internal Medicine Pulmonary Disease
DX: R06.2 Wheezing (principal); D72.19 Other eosinophilia; J45.909 Unspecified asthma, uncomplicated; J44.9 Chronic obstructive pulmonary disease, unspecified; J41.1 Mucopurulent chronic bronchitis; R06.00 Dyspnea, unspecified; J84.10 Pulmonary fibrosis, unspecified
CPT/HCPCS: 36415; 82784; 82785; 82787; 85025; 86003; 86140; 86606; 86612; 86682

== ENCOUNTER → 2021-01-17 07:35 | Outpatient (CLI) | payer BC, SELFPAY | PROVIDERS: PCP Nurse Practitioner Family; Visit Provider Internal Medicine Pulmonary Disease | DX: R06.09 Other forms of dyspnea (principal) | CPT/HCPCS: 94060; 94726; 94729 ==

== ENCOUNTER → 2021-02-11 16:35 | Outpatient (CLI) | payer BC, SELFPAY ==
[2021-02-11 17:33] LABS: Uric Acid 3.1 mg/dl (2.5-6.2)
[2021-02-11 17:38] LABS: C-Reactive Protein 18.4 mg/L (0-4)
[2021-02-11 18:25] LABS: Erythrocyte Sedimentation Rate 70 mm/hr (0-20)
[2021-02-13 08:32] LABS: Antistreptolysin O Ab 29.5 IU/mL (0.0-200.0); RA Latex Turbid. 12.2 IU/mL (0.0-13.9)
[2021-02-14 15:59] LABS: Antinuclear Antibodies, IFA Positive (.)
== END ==
PROVIDERS: Visit Provider Nurse Practitioner Family
DX: M35.3 Polymyalgia rheumatica (principal)
CPT/HCPCS: 36415; 84550; 85651; 86038; 86060; 86140; 86431

== ENCOUNTER → 2021-02-19 13:33 | Outpatient (CLI) | payer BC, SELFPAY ==
[2021-02-19 13:35] LABS: Adenovirus F 40/41, stool Not Detected (NotDetected); Astrovirus Not Detected (NotDetected); Campylobacter Not Detected (NotDetected); Clostridium Difficile A/B, PCR Not Detected (NotDetected); Cryptosporidium Not Detected (NotDetected); Cyclospora Cayetanesis Not Detected (NotDetected); Entamoeba histolytica Not Detected (NotDetected); Enteroaggregative E coli Not Detected (NotDetected); Enteropathogenic E coli Not Detected (NotDetected); Enterotoxigenic E coli Not Detected (NotDetected); Giardia lamblia Not Detected (NotDetected); Norovirus Not Detected (NotDetected); Plesimonas Shigalloides, PCR Not Detected (NotDetected); Rotavirus A Not Detected (NotDetected); Salmonella, PCR Not Detected (NotDetected); Sapovirus Not Detected (NotDetected); Shiga-like toxin E coli Not Detected (NotDetected); Shigella Enterovasive E coli Not Detected (NotDetected); Vibrio Cholerae Not Detected (NotDetected); Vibrio, PCR Not Detected (NotDetected); Yersinia Entercolitica, PCR Not Detected (NotDetected)
== END ==
PROVIDERS: Visit Provider Nurse Practitioner Family
DX: R19.7 Diarrhea, unspecified (principal)
CPT/HCPCS: 87507

== ENCOUNTER → 2021-02-28 10:00 | Outpatient (CLI) | payer BC, SELFPAY ==
--- NOTE | 2021-02-28 10:03 | MR_ITS ---
PROCEDURE: MR HEAD/BRAIN WO/W CON CLINICAL INDICATION: HEADACHE Blurred vision, dizziness, falling frequently there is a nonspecific T2 white matter hyperintensity in the right frontal parietal junction. This does not show restricted diffusion and does not demonstrate contrast enhancement. COMPARISON: No exams were available for comparison TECHNIQUE: Routine multiplanar multi echo sequences are performed without and with gadolinium enhancement. FINDINGS: No midline shift, mass effect, intracranial hemorrhage, or hydrocephalus is evident. The cerebellopontine angles, cerebellum, brainstem, mid brain have an unremarkable appearance. No enhancing lesions are evident. There a nonspecific T2 white matter hyperintensity in the right frontal parietal junction. This does not show restricted diffusion and does not demonstrate contrast enhancement. The pituitary, optic chiasm, corpus callosum, and craniocervical junction have an unremarkable appearance. No mastoid effusion or sinus air-fluid level. IMPRESSION: No acute intracranial findings. Nonspecific small T2 white matter hyperintensity in the right frontal parietal junction. This is of questionable clinical significance and may represent a small gliotic focus Dictated by: Mendoza Teran MD 02/28/2021 14:05 Mendoza Teran MD in [facility] 02/28/2021 14:05
== END ==
PROVIDERS: PCP Nurse Practitioner Family; Visit Provider Nurse Practitioner Family
DX: R51.9 Headache, unspecified (principal)
CPT/HCPCS: 70553; A9576

== ENCOUNTER → 2021-03-05 09:31 | Outpatient (CLI) | payer BC, SELFPAY ==
--- NOTE | 2021-03-05 09:36 | XR_ITS ---
PROCEDURE: XR CERVICAL SPINE W FLEX/EXT CLINICAL INDICATION: neck pain, shante upper extremity pain COMPARISON: No exams were available for comparison FINDINGS: Normal alignment. There is slight reversal of the cervical lordosis which could be due to patient positioning or muscle spasm. Disc spaces are well preserved. No foraminal narrowing. No evidence of cervical rib. No lytic or blastic changes. Flexion and extension views show no abnormal subluxation IMPRESSION: There is straightening/reversal of the normal lordosis which may be due to patient positioning or muscle spasm. Otherwise negative Dictated by: Mendoza Teran MD 03/05/2021 10:25 Mendoza Teran MD in [facility] 03/05/2021 10:25
--- NOTE | 2021-03-05 09:36 | XR_ITS ---
PROCEDURE: XR LUMBAR SPINE 2-3V CLINICAL INDICATION: back pain, weakness COMPARISON: No exams were available for comparison FINDINGS: Normal alignment. No acute fracture or dislocation. There is degenerative disc disease at L4-5. There is an IUD in place. IMPRESSION: Degenerative disc disease L4-5. Dictated by: Mendoza Teran MD 03/05/2021 10:24 Mendoza Teran MD in [facility] 03/05/2021 10:24
[2021-03-05 11:40] LABS: Vitamin B12 786 pg/mL (239-931)
== END ==
PROVIDERS: PCP Nurse Practitioner Family; Visit Provider Nurse Practitioner Family
DX: M54.2 Cervicalgia (principal); M79.601 Pain in right arm; M79.602 Pain in left arm; M54.5 Low back pain; M79.604 Pain in right leg; M79.605 Pain in left leg; R29.6 Repeated falls; R29.898 Other symptoms and signs involving the musculoskeletal system
CPT/HCPCS: 36415; 72052; 72100; 82607; 82746

== ENCOUNTER → 2021-03-05 10:09 | Outpatient (CLI) | payer BC, SELFPAY | PROVIDERS: Visit Provider Nurse Practitioner Family | DX: R20.0 Anesthesia of skin (principal) | CPT/HCPCS: 36415; 82607; 82746 ==

== ENCOUNTER → 2021-03-10 09:26 | Outpatient (CLI) | payer BC, SELFPAY | PROVIDERS: PCP Nurse Practitioner Family; Visit Provider Nurse Practitioner Family | DX: G47.30 Sleep apnea, unspecified (principal) | CPT/HCPCS: G0399 ==

== ENCOUNTER → 2021-03-12 14:39 | Outpatient (CLI) | payer BC, SELFPAY ==
--- NOTE | 2021-03-12 14:40 | MR_ITS ---
PROCEDURE INFORMATION: Exam: MR Cervical Spine Without Contrast Exam date and time: 03/12/2021 2:40 PM Age: 40 years old Clinical indication: Neck pain; Additional info: Neck pain, shante arm pain. Stiffness and pain in neck [id number]. Headache. Bilateral hand numbness. No injury or trauma. Prior x-ray 03-05-21 TECHNIQUE: Imaging protocol: Multiplanar magnetic resonance images of the cervical spine without contrast. COMPARISON: CR XR CERVICAL SPINE W FLEX/EXT 03/05/2021 9:44 AM FINDINGS: Alignment grossly normal. Signal intensity within the bone marrow normal. Spinal cord normal. Visualized portions of the brain in the posterior fossa is also normal. Annular disk bulge and/or protrusions at C4-C5 No marrow edema C2-C3: Central canal and neural foramina are widely patent. C3-C4: Central canal and neural foramina are widely patent. C4-C5: Broad-based annular disc bulge mildly effaces the anterior aspect of the thecal sac.Central canal and neural foramina are widely patent. C5-C6: Central canal and neural foramina are widely patent. C6-C7: Central canal and neural foramina are widely patent. C7-T1: Central canal and neural foramina are widely patent. IMPRESSION: Mild annular disc bulge C4-C5.
--- NOTE | 2021-03-12 14:40 | MR_ITS ---
PROCEDURE INFORMATION: Exam: MR Lumbar Spine Without Contrast Exam date and time: 03/12/2021 2:40 PM Age: 40 years old Clinical indication: Low back pain; Additional info: Neck pain, shante upper extremity pain. Bilateral low back and hip pain [id number]. Bilateral toe numbness. No injury or trauma. Prior x-ray 03-05-21. TECHNIQUE: Imaging protocol: Multiplanar magnetic resonance images of the lumbar spine without intravenous contrast. COMPARISON: CR XR LUMBAR SPINE 2-3V 03/05/2021 9:44 AM FINDINGS: Vertebrae: There is a normal count of 5 [id number] lumbar type vertebrae. No significant listhesis. There is no evidence of acute fracture. Marrow signal pattern is within normal limits. No lytic tumor or metastatic pattern. Spinal cord: The conus tip is at the upper L1 level, and appears normal. Cord is normal in signal and contour, as visualized. L1-L2: Minimal facet hypertrophy. Minimal anterior spondylosis. No significant stenosis. L2-L3: No significant disc disease. Mild facet hypertrophy. No significant stenosis. L3-L4: Mild degenerative signal loss of the disc. Minimal posterior disc protrusion or bulging indenting the thecal sac series 7, image 13. Mild bilateral facet arthropathy, trace facet joint effusions. No significant spinal or foraminal stenosis, or nerve impingement. L4-L5: The disc appears moderately narrowed and desiccated. There is posterior disc protrusion, which indents the ventral surface of the thecal sac, see sagittal T2 images 7-8, and axial T2 series 7, image 18. The facets and ligamentum flavum are mildly hypertrophied, there are trace facet joint effusions on STIR series 5. The central spinal canal appears mildly narrowed. Intraforaminal disc bulging slightly greater on the left, mildly narrowing the left neural foramen, minimally narrowing the right neural foramen. No lateral nerve impingement. L5-S1: Mild posterior disc narrowing, broad posterior disc bulging indenting the ventral-extradural fatty tissues. Mild facet arthropathy on the left, hypoplastic right side facets as seen on the prior CT exam. No significant spinal or foraminal stenosis. Sacrum/coccyx: Bilateral sacroiliac arthritis. Soft tissues: Patchy subcutaneous soft tissue edema in the posterior lower back, a common finding. There are no soft tissue masses or organized fluid collections. Other findings: There is no aortic aneurysm. IMPRESSION: 1. Degenerative disc disease and facet arthropathy greatest at L4-L5. Posterior disc protrusion indents the thecal sac, there are trace facet joint effusions. The central spinal canal is mildly narrowed, and left neural foramen mildly narrowed. No high-grade stenosis or nerve compression seen, in the neutral supine position. 2. Milder degenerative changes at the other levels with no significant stenosis or nerve impingement. 3. Additional nonemergency and chronic findings as above.
== END ==
PROVIDERS: PCP Nurse Practitioner Family; Visit Provider Specialist
DX: M54.2 Cervicalgia (principal); M79.601 Pain in right arm; M79.602 Pain in left arm; M54.5 Low back pain
CPT/HCPCS: 72141; 72148; 76376

== ENCOUNTER 2021-03-20 08:30 | Outpatient (RCR) | payer BC, SELFPAY | END 2021-03-20 09:30 | disposition home or self-care (01) | LOC: OT 08:30 | PROVIDERS: Visit Provider Nurse Practitioner Family | DX: G56.03 Carpal tunnel syndrome, bilateral upper limbs (principal) | CPT/HCPCS: 97763 ==

== ENCOUNTER → 2021-03-20 08:46 | Outpatient (CLI) | payer BC, SELFPAY ==
--- NOTE | 2021-03-20 | CA_ITS ---
APPROVED REPORT EXAM: Comprehensive 2D, Doppler, and color-flow Echocardiogram Cia Agent: Marcia Castillo CRT Ht: 6 ft 0 in Wt: 305lbs BSA: 2.55 BP: 130/76 mmHg Indications: Shortness of Breath, tachycardia since +Covid 12/11 2D Dimensions LVOT 1.75 cm (M/F) 1.5-2.5 LA Volume 29.40 mL LA Volume Index 11.50 mL/m2 (M/F) 16-34 M-Mode Dimensions RVDd 2.48 cm (0.9-2.6) LA Diam 3.98 cm (1.9-4.0) LVDd 4.93 cm (3.5-5.7) Ao Diam 3.53 cm (2.0-3.7) LVDs 3.25 cm (3.5-5.7) IVSd 1.41 cm (0.6-1.1) PWd 0.79 cm (0.6-1.1) EF (Teich) 62.80% FS 34.10% EDV (Teich) 114.40 mL TAPSE 1.90 (<1.7) ESV (Teich) 42.50 mL LV Diastology E Decel Time 150.00 (160-240 msec) E/A Ratio 0.79 MED E' 7.60 (< 7 cm/sec) MED A' 12.40 cm/s E'/MED E' Ratio 8.37 (>14) LAT E' 8.10 (<10 cm/sec) LAT A' 11.10 cm/s E/LAT E' Ratio 7.85 (>14) Aortic Valve AO Peak GR. 9.30 mmHg Mitral Valve MV E Max Bradly. 64.00 (40-130 cm/s) MV A Velocity 80.00 (40-130 cm/s) E/A Ratio 0.79 MV Decel. Time 150.00 (160-240 ms) MV PHT 44.00 ms Pulmonary Valve PV Peak Velocity 123.00 (50-150 cm/s) Tricuspid Valve TR P. Velocity 204.00 cm/s RAP Estimate 10.00 mmHg RVSP 26.70 mmHg Left Ventricle Left atrium is mildly enlarged, left ventricle is normal size there is no concentric left ventricular hypertrophy, visually estimated ejection fraction 55% with no regional wall motion abnormality, Doppler evidence of impaired LV relaxation seen. Tissue Doppler is inconclusive. Right Ventricle Right atrium and right ventricle are normal size and contractility. Aortic Valve Aortic valve is grossly normal, Mitral Valve Mitral valve leaflets are minimally thickened, there is mild mitral regurgitation Tricuspid Valve Tricuspid valve grossly normal, there is mild tricuspid regurgitation. Tricuspid regurgitation jet velocity is inadequate for calculation of the right ventricular systolic pressure. Pulmonic Valve Pulmonic valve is poorly visualized. Great Vessels Aortic root is normal size. Pericardium No significant pericardial effusion noted. Conclusion 1. Mildly low left atrium, normal left ventricular size, visually estimated ejection fraction 55% with no regional wall motion abnormality, Doppler evidence of impaired LV relaxation seen. 2. Mild mitral and tricuspid regurgitation. 3. No significant pericardial effusion noted. Electronically signed by : Dennis Fernandes, 03/20/2021 15:22:12
--- NOTE | 2021-03-20 08:50 | US_ITS ---
PROCEDURE: US ABDOMEN COMPLETE CLINICAL INDICATION: ENLARGED SPLEEN COMPARISON: CT CT ABDOMEN PELVIS W CON from 09/09/2020 US US ABDOMEN LIMITED from 09/16/2020 FINDINGS: This exam is limited secondary to patient's body habitus. PANCREAS: Pancreas is not well delineated due to overlying bowel gas. CT or MRI without and with contrast with pancreatic protocol may provide further evaluation if clinically desired. LIVER: Diffuse increased echogenicity of the liver with poor through transmission of sound consistent with hepatic steatosis. No focal liver lesion demonstrated. There is appropriate direction of blood flow within non dilated portal vein. RIGHT KIDNEY: Unremarkable. Normal size and echogenicity. No hydronephrosis LEFT KIDNEY: Unremarkable. Normal size and echogenicity. No hydronephrosis GALLBLADDER: No gallstones, gallbladder wall thickening, pericholecystic fluid, or biliary dilatation. AORTA: No evidence of aneurysmal dilatation. SPLEEN: Unremarkable. Normal size and echogenicity ASCITES: None demonstrated. IMPRESSION: Fatty liver. Pancreas not well delineated. Limited study due to patient's body habitus which is otherwise unremarkable. Dictated by: Mendoza Teran MD 03/20/2021 13:38 Mendoza Teran MD in [facility] 03/20/2021 13:38
== END ==
PROVIDERS: PCP Nurse Practitioner Family; Visit Provider Nurse Practitioner Family
DX: R06.02 Shortness of breath (principal); R16.1 Splenomegaly, not elsewhere classified
CPT/HCPCS: 76700; 93306

== ENCOUNTER → 2021-04-14 08:38 | Outpatient (POV) | payer MEDICAID, SELFPAY ==
[2021-04-14 08:56] VITALS: BP 127/83; PULSE 107; RESP 18; TEMP 35.9; O2SAT 96; BMI 41.1
--- NOTE | 2021-04-14 12:17 | HMH.PMCON ---
Assessment and Plan (1) Low back pain Status: Chronic Category: Medical Code(s): M54.5 - Low back pain (2) Bilateral sacroiliitis Status: Chronic Category: Medical Code(s): M46.1 - Sacroiliitis, not elsewhere classified - Assessment and plan all Dx Assessment and Plan for all problems:: Patient does have positive Sean's, compression, distraction test. She is tender to palpation to her bilateral SI joints. We will order the patient diclofenac 75 mg 1 tablet p.o. twice daily. She has been advised to refrain from taking other antiinflammatories with this medication. We will also order her bilateral SI joint injections. She does have imaging that notes the patient to have sacroiliac arthritis. We will see if the patient gets relief with bilateral SI injections. She does continue with aquatic therapy as well as home stretching and ice and heat therapies. She has taken ibuprofen in the past which did not relieve her pain. We will change the patient over to diclofenac at this time. Patient is not diabetic. Risks and benefits of the medication have been explained in detail to the patient. The patient has been advised to consult with his/her primary care provider and pharmacist regarding drug-drug interaction of medications currently prescribed. Risks and benefits of the procedure have been explained to the patient. Patient would like to proceed with the procedure. Possible side effects of corticosteroids have been discussed with the patient. HPI - Data of Consult Patient: new to practice Consult date: 04/14/21 Requesting Physician: Breanna Gonzales APRN Primary Care Provider: Referral Provider, MD - Consult Narrative Reason for consult: Low back pain History of present illness: Ms. Murcia is a 40 year old female who presents today for consultation for chronic low back pain. Patient says she has had low back pain for many years which is progressively worsened. Patient was referred to us by Iona Rea APRN. Patient says her pain is in her low back with radiation into bilateral legs. She is having bilateral buttock and hip pain. She says her pain is stopping at her knees. She says she has had pain for many years, however, her low back pain has progressively worsened over the last 6 months. She does also report to be having some occasional numbness and tingling lower extremities stopping at the knee. Patient says standing, sitting, lying down, and walking worsen her pain. She denies any surgical intervention past or any history of fractures. She denies any saddle anesthesia or changes in bowel or bladder habit. Patient does take ibuprofen which has not given her any relief. She is currently undergoing aquatic therapy which seems to be helping. She is not on any anticoagulation therapy. Patient has not undergone any injective therapy. She does have imaging that we will review today. CC: Breanna Gonzales APRN [facility] History Medical History: Reports:: Anxiety, Asthma, Depression, Diabetes Mellitus Type 2, Migraine Denies:: Cancer, Diabetes Mellitus Type 1, MRSA *Have you ever received a pneumonia vaccine?: No *Have you received a flu vaccine this season?: No Laterality Cases: Bilateral: Tonsillectomy Other Surgeries: Yes: No Previous Surgery Amputation: No Fractures: No - *Social History Smoking Status: Current every day smoker Tobacco Type: cigarettes # Packs/Day (cigarettes): 1 Alcohol Intake: never Substance Use Type: denies use *Occupational Status:: employed Housing: house Household Members: family *Travel in the last 8 weeks: None - Psychiatric History Pschychiatric History:: Reports:: Anxiety, Depression Family Hx:: Cancer, Diabetes, Stroke Review of Systems - Review of Systems Review of Systems General: No recent weight changes, no fever, no sleep disturbances Respiratory: No cough, no shortness of air, no recurring pulmonary infections Cardiovascular/peripheral vascular:
== END ==
PROVIDERS: Visit Provider Clinical Nurse Specialist Family Health
DX: M54.5 Low back pain (principal); M46.1 Sacroiliitis, not elsewhere classified
CPT/HCPCS: 99202; G0463

== ENCOUNTER 2021-04-18 08:33 | Day surgery (SDC) | payer MEDICAID, SELFPAY ==
[2021-04-18 08:35] VITALS: BP 141/83; PULSE 100; RESP 18; TEMP 36.4; O2SAT 97; BMI 40.0
--- NOTE | 2021-04-18 09:17 | HMH.PMPROC ---
- Procedure Date: 04/18/21 Time: 09:17 Anesthesiologist:: Maria Luz So MD Complications:: None Pre-procedure Diagnosis:: Bilateral sacroiliitis, chronic bilateral hip pain, chronic low back pain Post-procedure Diagnosis:: Same Indications for Procedure:: Patient is a very pleasant 40-year-old white female who presents today with chronic low back pain and bilateral hip pain related to the above diagnosis. She has tried and failed conservative treatment including oral pain medication and home stretching program for greater than 6 weeks. She is currently taking diclofenac 75 mg 1 tablet p.o. twice daily. plan for today is for the patient to undergo bilateral SI joint injections under fluoroscopy. Procedure Details:: Informed consent was obtained and the risks and benefits of the procedure was explained to the patient. The patient was taken to the procedure room and placed prone on the procedure table. The patient was prepped using ChloraPrep. The skin and subcutaneous tissues overlying the SI joints were anesthetized using lidocaine. I placed a 22-gauge needle first in the left SI joint and second in the right SI joint. Needle placement was confirmed with dye. After this we injected 5 mL bupivacaine 0.25% and Depo-Medrol 40 mg into each SI joint. Patient tolerated the procedure well with no complications. Plan and Disposition:: We will follow-up with this patient in 2 weeks. Will reevaluate pain symptoms at that time.
[2021-04-18 09:24] VITALS: BP 153/90; PULSE 89; RESP 18; O2SAT 92
[2021-04-18 09:26] VITALS: BP 151/100; PULSE 89; RESP 18; O2SAT 92
[2021-04-18 09:40] VITALS: BP 126/68; PULSE 85; RESP 18; O2SAT 97
== END 2021-04-18 09:40 | disposition home or self-care (01) ==
LOC: SC.PAINP 08:34
PROVIDERS: PCP Nurse Practitioner Family; Visit Provider Anesthesiology Pain Medicine
DX: M46.1 Sacroiliitis, not elsewhere classified (principal); M54.5 Low back pain; G89.29 Other chronic pain; G43.909 Migraine, unspecified, not intractable, without status migrainosus; J45.909 Unspecified asthma, uncomplicated; E11.9 Type 2 diabetes mellitus without complications; F41.9 Anxiety disorder, unspecified; F32.9 Major depressive disorder, single episode, unspecified; K21.9 Gastro-esophageal reflux disease without esophagitis
CPT/HCPCS: 27096; G0260; J1030; Q9966

== ENCOUNTER 2021-04-30 13:00 | Outpatient (RCR) | payer BC, MEDICAID, OTHER, SELFPAY ==
--- NOTE | 2021-03-05 09:45 | HMH.PTOPEV ---
PT Outpatient Evaluation Rehab PT Outpatient Evaluation Start: 03/05/21 09:24 Freq: Status: Active Protocol: Document 03/05/21 09:24 MARIANGEL (Rec: 03/05/21 09:45 MARIANGEL [id number]) Electronically Signed By Elpidio Ko, PT 03/05/21 09:24 Outpatient Therapy Subjective History Subjective History Patient is a 40 year old female presenting to outpatient PT with reports of LPB, hip and BLE pain, as well as cervical spine pain with BUE pain. Main complaint to address with PT is LBP/hip/BLE pain. Patient reports multiple falls over the past 2 months. Patient reports that the only time she has symptom relief of LBP and BLE pain is while in pool. LLE affected > RLE. Symptom onset after episode of COVID-19. Patient reports having dose of steriods and antidepressants that have provided some relief . Suspect overall deconditioning. Comorbidities include hx of anxiety/ depression. Chief Complaint Pain,Weakness Symptom Type Ache,Throb,Sharp Symptoms Relieved By Rest/Positioning,OTC Meds, Prescription Meds Symptoms Aggravated By Standing,Bending/Stooping, Physical Activity,Walking, Lifting Prior Functional Limitations None Current Functional Limitations Lifting,Housework,Sleeping, Standing,Sitting,Squatting, Recreation Activity,Walking, Stairs,Balance,Bending/ Stooping Symptom Description Constant but Variable Level of pain today (0-10) 9 Pain scale - at its best (0-10) 7 Pain scale - at its worst (0-10) 9 Lumbopelvic Eval Posture Thoracic Spine Posture Standing Position Increased Kyphosis Lumbar Spine Posture Standing Position Increased Lordosis Palapation tenderness bilateral lumbar spinal tenderness Yes: L3-S1 3/4 buttock tenderness Yes: 3/4 Lumbar/Sacral Palpation Findings Tenderness Accessory Movement L3 bilateral L4 bilateral L5 bilateral S1 bilateral Range of Motio
--- NOTE | 2021-04-17 15:17 | HMH.RHREAS ---
Rehab Reassessment Rehab OP Re-assessment Start: 04/17/21 14:54 Freq: Status: Active Protocol: Document 04/17/21 14:55 MARIANGEL (Rec: 04/17/21 15:17 MARIANGEL [id number]) Electronically Signed By Elpidio Ko, PT 04/17/21 14:55 Rehab Re-assessment Subjective Subjective Patient reports no improvement since start of care. Objective Objective Notes LS AROM: flx 65; ext 10; SBr/ SBl 10 MMT: 4/5 grossly bilaterally Pain: current 8/10; at worst 9 ; at best over past week 6 Neuro: WNL Special tests: postive ENOCH, Davina, Piriformis, SLR B Assessment Progress Assessment No Progress Assessment Notes Patient has been seen for evaluation and 1 follow-up visit to date secondary to bacterial pneumonia per patient report. First follow- up visit included aquatic therapy for BLE stretching, strengthening and balance. Suspect non-compliance with HEP secondary to illness. Persistent functional limiations noted with all standing/ambulatory activiteis . Patient goals met None Goals Not Met All Revised Goals NA Plan Plan Continue with current POC. Frequency of Therapy 2x/week Duration of therapy 4 weeks Time and Billing Re-Eval Time 15 Re-Eval Billing Units 1 PHYSICIAN CERTIFICATION: I certify the specified therapy services for Kiana Robyn Murcia are required, authorized, and reviewed every 30 days.
== END 2021-04-30 13:05 | disposition home or self-care (01) ==
LOC: PT 13:00
PROVIDERS: PCP Nurse Practitioner Family; Visit Provider Specialist
DX: M54.5 Low back pain (principal); M25.551 Pain in right hip; M25.552 Pain in left hip; R29.6 Repeated falls; M79.604 Pain in right leg; M79.605 Pain in left leg; M79.601 Pain in right arm; M79.602 Pain in left arm; R29.898 Other symptoms and signs involving the musculoskeletal system
CPT/HCPCS: 97113; 97163; 97164

== ENCOUNTER 2021-05-15 10:00 | Outpatient (RCR) | payer BC, MEDICAID, OTHER, SELFPAY ==
--- NOTE | 2021-03-19 15:52 | HMH.OTOPEV ---
OT Inpatient Evaluation Rehab OT Outpatient Eval Start: 03/19/21 14:51 Freq: Status: Active Protocol: Document 03/19/21 14:51 KAERNFILIPPO (Rec: 03/19/21 15:51 HAZELIS [id number]) Electronically Signed By Sherlyn Torres OT 03/19/21 14:51 Outpatient Therapy Subjective History Subjective History 40 year old female referred to skilled OP OT services for B UE hand pain. Patient verbalize having pain in B hands for the past 3 years and pain has increased within the past year. Patient recieved NCV on March 07 at stated severe CTS in B wrist (worse in R wrist). Patient verbalize having orders to recieve B removable hand splint, however left the order at home. Patient will RTC tomorrow with order and splints to be provided. Chief Complaint Pain,Stiff,Weakness,Decreased Construction Trades Contractor Strength Symptom Type Ache Symptoms Relieved By Nothing Symptoms Aggravated By Physical Activity Prior Functional Limitations None Current Functional Limitations Reaching,Lifting,Driving, Sleeping,Recreation Activity Symptom Description Constant and Continuous Level of pain today (0-10) 6 Pain scale - at its best (0-10) 6 Pain scale - at its worst (0-10) 8 Wrist/Hand Eval Wrist Range of Motion Right Wrist Extension Active Range of Motion ( 42 degrees) Wrist Flexion Active Range of Motion ( 46 degrees) Wrist Radial Deviation Active Range of 15 Motion (degrees) Wrist Ulnar Deviation Active Range of 30 Motion (degrees) Forearm Supination Active Range of 68 Motion (degrees) Forearm Pronation Active Range of Motion 90 (degrees) Left Wrist Extension Active Range of Motion ( 60 degrees) Wrist Flexion Active Range of Motion ( 70 degrees) Wrist Radial Deviation Active Range of 20 Motion (degrees) Wrist Ulnar Deviation Active Range of 30 Motion (degrees) Forearm Supination Active Range of 75 Motion (degrees) Forearm Pronation Active Range of Motion 90 (degrees) Construction Trades Contractor/Pinch Strength Right Construction Trades Contractor Strength Measurement (lbs) 18 Left Construction Trades Contractor Strength Measurement (lbs) 25 OT Outpatient Assessment Impairments
== END 2021-05-15 10:05 | disposition home or self-care (01) ==
LOC: OT 10:00
PROVIDERS: PCP Nurse Practitioner Family; Visit Provider Specialist
DX: G56.03 Carpal tunnel syndrome, bilateral upper limbs (principal)
CPT/HCPCS: 97014; 97035; 97140; 97164; 97165; 97530; G0283

== ENCOUNTER → 2021-05-27 08:16 | Outpatient (POV) | payer OTHER, SELFPAY ==
[2021-05-27 08:33] VITALS: BP 142/91; PULSE 108; RESP 18; O2SAT 96; BMI 40.4
--- NOTE | 2021-05-27 10:17 | HMH.PAINSOAP ---
[facility] Pain Management SOAP Note Subjective:: Patient is a 40-year-old white female who presents today for follow-up after bilateral SI joint injections. Patient reports she got no relief with the injections. She is having pain in her low back that is present all the time but made worse with standing, walking. She says the pain does improve somewhat with sitting. She is having pain that is radiating into bilateral lower extremities with numbness into the feet. She has tried and failed conservative therapies of aquatic therapy along with continued home stretching. She does take diclofenac 75 mg 1 tablet p.o. twice daily and uses ice and heat therapies with no benefit. She rates her pain a 9 out of 10 today. Patient did not get any significant relief with the conservative therapies and injective therapies. She does have imaging of lumbar spine. The patient is having heaviness and weakness in her bilateral lower extremities as well. Review of Systems General: No recent weight changes, no fever, no sleep disturbances Respiratory: No cough, no shortness of air, no recurring pulmonary infections Cardiovascular/peripheral vascular: No chest pain, no palpitations, no edema, no shortness of breath Gastrointestinal: No new onset incontinence, normal bowel movements reported Genitourinary: No new onset incontinence Musculoskeletal: Low back pain with radiation into bilateral lower extremities and feet with numbness and tingling Psychiatric: [Normal mood/affect] Neurological: Weakness bilateral lower extremities Objective:: Physical exam General: Alert and oriented x3, no acute distress, pleasant and cooperative, [on room air] Lungs: Respirations even and unlabored, symmetrical chest expansion Eyes: PERRL Musculoskeletal: Flexion and extension of lumbar [spine] somewhat guarded secondary to pain, [antalgic gait noted] Neurological: Speech clear, no gross sensory deficit Assessment:: Degenerative disc disease lumbar spine with lumbar radiculopathy symptoms Plan:: We will schedule the patient for lumbar epidural steroid injection at L4-L5 area. Per MRI report, patient does have a posterior disc protrusion, which indents the ventral surface of the thecal sac. We will also start the patient on gabapentin 300 mg 1 tablet p.o. daily. We will see if this gives the patient relief of her numbness and tingling in lower extremities and pain into lower extremities. She is not on any anticoagulation therapy. She has tried and failed conservative therapies of SI injections, physical therapy for more than 6 weeks, and anti-inflammatories. She does have a scheduled visit with Dr. Cesar in June. We will perform the injection to see if this gives her relief before the visit with Dr. Cesar. This was scheduled for the patient by Dr. Corrales. We will also schedule patient for repeat physical therapy to see if this offers the patient any relief. Risks and benefits of the medication have been explained in detail to the patient. If side effects do present with the medication, she has been advised to stop the medication immediately and call the clinic. The patient has been advised to consult with his/her primary care provider and pharmacist regarding drug-drug interaction of medications currently prescribed. Possible side effects of corticosteroids have been discussed with the patient. Risks and benefits of the procedure have been explained to the patient. Patient would like to proceed with the procedure. Patient has been instructed to contact the clinic with any concerns before the next appointment. Dr. Aldana has reviewed this note and agrees with this plan of care. This note was dictated using voice recognition software and make contain errors or omissions. [facility] History I have reviewed the patient's past medical history: Yes Medical History: Reports:: Anxiety, Asthma, Depression, Diabetes Mellitus Type 2, Migraine Denies:: Cancer, Diabetes Fauzia
== END ==
PROVIDERS: Visit Provider Clinical Nurse Specialist Family Health
DX: M51.16 Intervertebral disc disorders with radiculopathy, lumbar region (principal)
CPT/HCPCS: 99212; G0463

== ENCOUNTER 2021-06-20 12:57 | Day surgery (SDC) | payer OTHER, SELFPAY ==
[2021-06-20 13:00] VITALS: BP 121/79; PULSE 112; RESP 18; TEMP 36.2; O2SAT 96; BMI 39.3
[2021-06-20 13:17] VITALS: BP 139/88; PULSE 110; RESP 20; O2SAT 94
--- NOTE | 2021-06-20 13:20 | HMH.PMPROC ---
- Procedure Date: 06/20/21 Time: 13:20 Anesthesiologist:: Kofi Aldana MD Complications:: None Pre-procedure Diagnosis:: Degenerative disc disease of lumbar spine with lumbar radiculopathy symptoms Post-procedure Diagnosis:: Same Indications for Procedure:: Patient is a pleasant 40-year-old white female who we are treating for low back pain with lumbar radiculopathy symptoms. She has increasing pain in her back rating down both legs. She did have bilateral SI joint injections and got little to no relief of her pain symptoms. We will plan on a lumbar epidural steroid injection under fluoroscopy today. She does have an MRI does show significant posterior disc protrusion at L4-L5 indenting the ventral surface of the thecal sac. We will do a lumbar pleural steroid injection today to see if this helps with her symptoms. Procedure Details:: Informed consent was obtained and the risk and benefits of the procedure was explained to the patient. The patient was taken to the procedure room. The patient was placed prone on the procedure table. The patient was prepped and draped in sterile fashion. C-arm fluoroscopy was used to view the lumbar spine. Skin and subcutaneous tissues were anesthetized using lidocaine. I placed an 18-gauge epidural needle and advanced into the L4-L5 interspace using fluoroscopic guidance and [id number] to air. After confirmation of needle placement in the epidural space with dye I injected 2 mL of lidocaine 1.5% with Depo-Medrol 80 mg. Patient tolerated the procedure well with no complications. Plan and Disposition:: We will follow-up with her in 2 weeks [address] she sees Dr. Cesar
[2021-06-20 13:21] VITALS: BP 132/93; PULSE 110; RESP 20; O2SAT 96
[2021-06-20 13:26] VITALS: BP 134/80; PULSE 110; RESP 20; O2SAT 95
== END 2021-06-20 13:26 | disposition home or self-care (01) ==
LOC: SC.PAINP 12:58
PROVIDERS: PCP Nurse Practitioner Family; Visit Provider Anesthesiology
DX: M51.16 Intervertebral disc disorders with radiculopathy, lumbar region (principal); G43.909 Migraine, unspecified, not intractable, without status migrainosus; J45.909 Unspecified asthma, uncomplicated; E11.9 Type 2 diabetes mellitus without complications; F41.9 Anxiety disorder, unspecified; F32.9 Major depressive disorder, single episode, unspecified; Z87.891 Personal history of nicotine dependence; K21.9 Gastro-esophageal reflux disease without esophagitis
CPT/HCPCS: 62323; J1040; Q9966

== ENCOUNTER 2021-07-06 09:57 | Emergency (ER) | payer OTHER, SELFPAY ==
[2021-07-06 10:00] VITALS: BP 130/83; PULSE 98; RESP 17; TEMP 36.8; O2SAT 99; BMI 39.3
[2021-07-06 10:20] LABS: UTC Strep Screen (Rapid) Negative (Negative)
--- NOTE | 2021-07-06 10:36 | HMH.EDUTC ---
[facility] Disposition Clinical Impression: Otitis media Qualifiers: Otitis media type: unspecified Laterality: left Qualified Code(s): H66.92 - Otitis media, unspecified, left ear Sinusitis Qualifiers: Sinusitis location: unspecified location Chronicity: unspecified Qualified Code(s): J32.9 - Chronic sinusitis, unspecified Disposition: Home, Self-Care Condition on Discharge: Good Instructions: Middle Ear Infections (Alternative Therapy), Sinusitis, Middle Ear Infection, DI for Sinusitis Additional Instructions: *Monitor Temp, Over the counter Motrin or Tylenol as directed/as needed Tylenol every 4 hours and Motrin every 6 hours (as long as your family doctor has told you that you can take it) for fever or pain. and straight to ER if unable to lower temp less than 101.0 after medication given *Warm salt water gargles may help to soothe the throat *Throat Lozenges *Warm fluids like tea with honey may help to soothe the throat *Sleep elevated *Humidifier/Vaporizer *If you did not take Penicillin shot or was unable to, start taking antibiotic immediately and make sure that you take it for the FULL length of time although you should start to feel better in 24-48 hours *change toothbrush and toothpaste 24-48 hours after starting to take antibiotics so you do not reinfect yourself Monitor Temp. Tylenol and/or Ibuprofen as needed. ER if fever is no less than 101 despite alternating Tylenol and Ibuprofen * Encourage fluids, water, Gatorade, powerade, pedialyte if /toddler/or child *Cold fluids, popsicles and ice cream may feel good on his throat Your throat swab was sent for culture. Those results are typically sent to your primary care. Be sure to follow up in 2-3 days with your family doctor/primary care physician if no improvement so they can review those result and treat if necessary. If you don?t have a primary care doctor, I recommend you get one but in the mean time, you will have to return to a walk in clinic Follow up IMMEDIATELY for new or worsening symptoms or no Noticeable improvement over the next 48-72 hours. 911 for difficulty breathing or swallowing Prescriptions: Amoxicillin/Potassium Clav [Augmentin 875-125 Tablet] 1 tab PO Q12H 10 Days #20 tab Transmission Status: Received by [email or web address] #[id number] Referrals: Brii Rios APRN [Primary Care Provider] - As needed Time of Disposition: 10:41 Medical Decision Making - Jace Inquiry Pt receiving controlled substance: No Jace was queried for this patient: No Vital Signs: 07/06/21 10:00 07/06/21 11:01 Temperature 98.3 F 98.3 F Temperature Source Oral Pulse Rate 98 H Pulse Rate [Right Brachial] 98 H Respiratory Rate 17 17 Blood Pressure 130/83 Blood Pressure [Right Arm] 130/83 Blood Pressure Mean [Right Arm] 98 Blood Pressure Source [Right Arm] Automatic Cuff Blood Pressure Position [Right Arm] Sitting 02 Sat by Pulse Oximetry 99 Oxygen Delivery Method Room Air - Lab Data Lab Results 07/06/21 10:19: Strep Scn Rapid Clinic Negative Orders (Tests/Meds): ED MEDICATIONS Discontinued Medications Generic Name Dose Route Start Last Admin Trade Name Freq PRN Reason Stop Dose Admin Methylprednisolone Sodium Succinate 125 mg 07/06/21 10:44 07/06/21 10:50 Methylprednisolone Sod Succ 125mg Vial IM 07/06/21 10:45 125 mg ONCE ONE Administration ORDERS Category Date Time Status Strep Screen Confirmation Stat Micro 07/06/21 10:19 Received [facility] HPI - General Stated complaint: sore throat, cough, soa, h/a, congestion Time Seen by Provider: 07/06/21 10:36 Mode of Arrival: Ambulatory Source of Information: Patient Limitations: No Limitations Description of Symptoms (Recalled from Triage Doc. by RN): PATIENT C/O CONGESTION, COUGH AND SORE THROAT X 3 DAYS HEENT Symptoms (Recalled from RN notes): Yes Resp Symptoms (Recalled from RN notes): Yes Skin Symptoms (Recalled from RN notes): No MS Symptoms (Reca
[2021-07-06 11:01] VITALS: BP 130/83; PULSE 98; RESP 17; TEMP 36.8; O2SAT 99
== END 2021-07-06 11:03 | disposition home or self-care (01) ==
PROVIDERS: Emergency Provider Nurse Practitioner; PCP Nurse Practitioner Family
DX: H66.92 Otitis media, unspecified, left ear (principal); J32.9 Chronic sinusitis, unspecified; F41.8 Other specified anxiety disorders; E11.9 Type 2 diabetes mellitus without complications; Z79.84 Long term (current) use of oral hypoglycemic drugs; Z79.899 Other long term (current) drug therapy
CPT/HCPCS: 87880; 96372; 99202; G0463

== ENCOUNTER → 2021-07-08 09:39 | Outpatient (POV) | payer OTHER, SELFPAY ==
[2021-07-08 10:01] VITALS: BP 152/80; PULSE 98; RESP 18; O2SAT 98; BMI 39.3
--- NOTE | 2021-07-08 10:06 | HMH.PAINSOAP ---
[facility] Pain Management SOAP Note Subjective:: Foot change patient is a 40-year-old Y female who presents today for follow-up. The patient did undergo a lumbar epidural steroid injection on 06/20/2021. She got minimal relief with this injection. She did see Dr. Cesar recently for a neurosurgical evaluation. Unfortunately due to significant inflammation, Dr. Cesar did not feel the patient was a neurosurgical candidate at this time. The patient was referred to a attendance secretary for anti-inflammatory diet to help with inflammation. She was referred for rheumatology with rheumatology Dr. Hearn. Patient was told that she is on the high end of her levels for possible rheumatoid arthritis. She was diagnosed with severe fibromyalgia. She is currently on Cymbalta 90 mg 1 tablet p.o. daily. We also started the patient on gabapentin 3 mg 1 tablet p.o. daily. Since seeing rheumatology, the patient has increased her gabapentin to 2 times daily and is doing much better with the medicine. She does seem to notice the medication wearing off mid day. She does say it works well for her, however. She says gabapentin has seemed to be the only thing that is giving her any significant relief. She does rate her pain an 8 out of 10 today. The patient is very limited with mobility due to her pain in her low back area to bilateral lower extremities. Patient has had bilateral SI joint injections as well with no relief. Her MRI does show significant posterior disc protrusion at L4-L5 indenting the ventral surface of the thecal sac. Review of Systems General: No recent weight changes, no fever, no sleep disturbances Respiratory: No cough, no shortness of air, no recurring pulmonary infections Cardiovascular/peripheral vascular: No chest pain, no palpitations, no edema, no shortness of breath Gastrointestinal: No new onset incontinence, normal bowel movements reported Genitourinary: No new onset incontinence Musculoskeletal: Low back pain with radiation into bilateral lower extremities Psychiatric: [Normal mood/affect] Neurological: [Denies weakness in extremities], [denies balance issues] Objective:: Physical exam General: Alert and oriented x3, no acute distress, pleasant and cooperative Lungs: Respirations even and unlabored, symmetrical chest expansion Eyes: PERRL Musculoskeletal: Flexion and extension of lumbar [spine] somewhat guarded secondary to pain, [antalgic gait noted] Neurological: Speech clear, no gross sensory deficit Assessment:: Degenerative disc disease lumbar spine with lumbar radiculopathy symptoms Plan:: Patient is following up after a lumbar epidural steroid injection. She is also had bilateral SI joint injections. She has got minimal relief with injective therapy. Patient was referred to neurosurgery, however, due to severe inflammation he did not feel comfortable proceeding with any type of surgery at this time. Patient was referred to a attendance secretary for anti-inflammatory diet. Dr. eCsar does plan to see the patient back in his clinic in 1 month. Patient was also referred to rheumatology. Dr. Berger said did diagnose the patient with fibromyalgia. She is on Cymbalta 90 mg 1 tablet p.o. daily by her PCP. We did start the patient on gabapentin 300 mg 1 tablet p.o. daily at last visit. She was advised to increase this medication to 2 times daily. She has done very well with the increase in the medicine but would like to go to 3 times daily, as she does develop significant pain midday. Patient has also been taking diclofenac 75 mg 1 tablet p.o. twice daily. We will continue this. We have also discussed starting tramadol 50 mg 1 tablet p.o. twice daily until she is able to see Dr. Cesar in 6 months. She would like to try this to see if this helps with the pain in the meantime. She will continue with home stretching as well. We will see the patient back in 3 months for medication management. If she is not getting signif
== END ==
PROVIDERS: Visit Provider Clinical Nurse Specialist Family Health
DX: M51.16 Intervertebral disc disorders with radiculopathy, lumbar region (principal)
CPT/HCPCS: 99212; G0463

== ENCOUNTER → 2021-07-08 10:12 | Outpatient (CLI) | payer OTHER, SELFPAY ==
--- NOTE | 2021-07-08 10:14 | XR_ITS ---
PROCEDURE: XR WRIST RT MIN 3V CLINICAL INDICATION: right wrist pain/ CTS COMPARISON: No exams were available for comparison FINDINGS: No fracture or dislocation. No lytic or blastic change. There is normal mineralization. The joint spaces are well-preserved. No significant degenerative/arthritic changes. No erosive changes evident. Other findings:None. IMPRESSION: No acute findings. Dictated by: Mendoza Teran MD 07/09/2021 08:16 Mendoza Teran MD in [place] 07/09/2021 08:16
--- NOTE | 2021-07-08 10:14 | XR_ITS ---
PROCEDURE: XR WRIST LT MIN 3V CLINICAL INDICATION: left wrist pain/ CTS COMPARISON: No exams were available for comparison FINDINGS: No fracture or dislocation. No lytic or blastic change. There is normal mineralization. The joint spaces are well-preserved. No significant degenerative/arthritic changes. No erosive changes evident. Other findings:None. IMPRESSION: No acute findings. Dictated by: Mendoza Teran MD 07/09/2021 08:16 Mendoza Teran MD in [place] 07/09/2021 08:16
== END ==
PROVIDERS: PCP Nurse Practitioner Family; Visit Provider Orthopaedic Surgery
DX: M25.532 Pain in left wrist (principal); M25.531 Pain in right wrist
CPT/HCPCS: 73110

== ENCOUNTER 2021-07-09 11:14 | Emergency (ER) | payer OTHER, SELFPAY ==
[2021-07-09 12:10] VITALS: BP 136/80; PULSE 106; RESP 21; TEMP 37.1; O2SAT 95; BMI 39.3
--- NOTE | 2021-07-09 12:24 | HMH.EDUTC ---
[facility] [place] Disposition Clinical Impression: Sinusitis Qualifiers: Sinusitis location: unspecified location Chronicity: unspecified Qualified Code(s): J32.9 - Chronic sinusitis, unspecified Disposition: Home, Self-Care Condition on Discharge: Good Instructions: Sinusitis, DI for Sinusitis, Benzonatate, Methylprednisolone Additional Instructions: *Monitor Temp, Over the counter Motrin or Tylenol as directed/as needed Tylenol every 4 hours and Motrin every 6 hours (as long as your family doctor has told you that you can take it) for fever or pain. and straight to ER if unable to lower temp less than 101.0 after medication given *Warm salt water gargles may help to soothe the throat *Throat Lozenges *Warm fluids like tea with honey may help to soothe the throat *Sleep elevated *Humidifier/Vaporizer *Flonase 2 sprays in each nostril daily but be aware that it may take 2-3 days before you notice improvement You blood sugar may elevate while taking Medrol but should return to normal Follow up IMMEDIATELY for new or worsening symptoms or no Noticeable improvement over the next 48-72 hours. 911 for difficulty breathing or swallowing You were tested for today for COVID19 your test result should be back in the next 24-48 hours, you may check your results on the [facility] [employer] health portal if you have trouble logging on or viewing your results you may call You was given a handout with instructions for Self Quarantine and Self isolation for while you wait on test results and what to do if they are positive If you are positive the Health Dept will be contacting you also Make sure to take your Vitamins Vit. C Vit D and Zinc if you can take them Referrals: Brii Rios APRN [Primary Care Provider] - As needed Forms: Work/School Release Time of Disposition: 12:41 Medical Decision Making - Jace Inquiry Pt receiving controlled substance: No Jace was queried for this patient: No Vital Signs: 07/09/21 12:10 Temperature 98.8 F Temperature Source Oral Pulse Rate [Right Brachial] 106 H Respiratory Rate 21 Blood Pressure [Right Arm] 136/80 Blood Pressure Mean [Right Arm] 98 Blood Pressure Source [Right Arm] Automatic Cuff Blood Pressure Position [Right Arm] Sitting 02 Sat by Pulse Oximetry 95 Oxygen Delivery Method Room Air Orders (Tests/Meds): ORDERS Category Date Time Status Covid-19 Nasal PCR ([facility]) Routine Lab 07/09/21 12:10 Received [facility] [place] HPI - General Stated complaint: possible sinus inf/ear inf Time Seen by Provider: 07/09/21 12:38 Mode of Arrival: Ambulatory Source of Information: Patient Limitations: No Limitations Description of Symptoms (Recalled from Triage Doc. by RN): PATIENT REPORTS SHE WAS TREATED FOR SINUS/EAR INFECTION ON WEDNESDAY AND IS NOT FEELING BETTER HEENT Symptoms (Recalled from RN notes): Yes Resp Symptoms (Recalled from RN notes): No Skin Symptoms (Recalled from RN notes): No MS Symptoms (Recalled from RN notes): No Functional Status (Recalled from RN notes): WNL - History of Present Illness Provider Complaint: Patient states that she was just seen on Wednesday for sinusitis and ear infection and was given mediacation states that she feels like she may need to get tested for COVID and get something for cough - Related Data Home Medications Medication Instructions Recorded Confirmed metformin 500 mg tablet,extended 500 mg PO BID tab 03/17/21 07/09/21 release 24 hr Dulaglutide [Trulicity] 0.75 mg SQ WEEKLY 07/06/21 07/09/21 Gabapentin [Neurontin 300mg 300 mg PO BID 07/06/21 07/09/21 capsule] Diclofenac Sodium [Diclofenac 75mg 75 mg PO BID 07/09/21 07/09/21 Tab] Allergies Allergy/AdvReac Type Severity Reaction Status Date / Time No Known Allergies Allergy Verified 06/20/21 13:13 - Worker's Comp Is this a Worker's Comp case?: No [facility] History - Hepatitis A Screen Drug use history?: No High risk sexual behaviors?: No History of sexually transmitted infection?: No
[2021-07-09 12:44] VITALS: BP 136/80; PULSE 106; RESP 21; TEMP 37.1; O2SAT 95
== END 2021-07-09 12:53 | disposition home or self-care (01) ==
PROVIDERS: Emergency Provider Nurse Practitioner; PCP Nurse Practitioner Family
DX: J32.9 Chronic sinusitis, unspecified (principal); F41.8 Other specified anxiety disorders; E11.9 Type 2 diabetes mellitus without complications; Z87.891 Personal history of nicotine dependence
CPT/HCPCS: 99202; C9803; G0463; U0003; U0005

== ENCOUNTER → 2021-09-09 09:50 | Outpatient (CLI) | payer OTHER, SELFPAY ==
--- NOTE | 2021-09-09 09:54 | XR_ITS ---
FINAL REPORT CLINICAL HISTORY: PLANTAR FASCITIS FINDINGS: RIGHT FOOT Three views of the right foot demonstrate no acute fracture or dislocation. The visualized joint spaces are intact. There is a small plantar calcaneal spur. There is a subcutaneous calcification in the heel pad measuring 6 mm of uncertain etiology. This could represent post inflammatory change or a mass. IMPRESSION: No acute bony abnormality. Subcutaneous calcification in the heel pad as described. Reviewed, Interpreted and Dictated by Froilan Mcfarland III, MD Transcribed by Amarilis Lowe Authenticated by Froilan Mcfarland III, MD on 09/09/2021 11:56:40 AM [facility]
== END ==
PROVIDERS: PCP Nurse Practitioner Family; Visit Provider Nurse Practitioner Family
DX: M79.671 Pain in right foot (principal); M72.2 Plantar fascial fibromatosis
CPT/HCPCS: 73630

== ENCOUNTER → 2021-09-19 08:53 | Outpatient (CLI) | payer OTHER, SELFPAY ==
--- NOTE | 2021-09-19 08:57 | XR_ITS ---
FINAL REPORT CLINICAL HISTORY: pre-op COMPARISON: 12/11/2020 FINDINGS: TWO VIEWS OF THE CHEST The heart is normal in size. The mediastinum is unremarkable. The lungs are clear. There is no pneumothorax. IMPRESSION: No acute cardiopulmonary process. Reviewed, Interpreted and Dictated by Rai Louis MD Transcribed by Brii Whittington Authenticated by Rai Louis MD on 09/19/2021 10:23:35 AM [facility]
[2021-09-19 10:05] LABS: Alanine Aminotransferase 46 U/L (12-78); Albumin Level 4.1 g/dl (3.5-5.0); Albumin/Globulin Ratio 1.6 (1.1-1.8); Alkaline Phosphatase 74 U/L (38-126); Aspartate Amino Transferase 43 U/L (14-36); Bilirubin,Total 0.6 mg/dl (0.2-1.3); Blood Urea Nitrogen 8 mg/dl (7-17); Calcium 9.3 mg/dl (8.4-10.2); Carbon Dioxide 22 mmol/L (22.0-30.0); Chloride 103 mmol/L (98-107); Estimated Glomerular Filt Rate 177 ml/min (>60); GFR (African American) 214 ML/MIN (>60); Globulin 2.5 g/dL (1.3-3.2); Glucose 241 mg/dl (74-100); Sodium 137 mmol/L (136-145); Total Protein,Serum 6.6 g/dl (6.3-8.2)
[2021-09-19 10:16] LABS: Basophils # 0.2 K/mm3 (0-0.2); Basophils % 1.8 % (0.1-2.0); Eosinophils # 0.2 K/mm3 (0.0-0.4); Eosinophils % 2.3 % (0.1-12.0); Hematocrit 45.8 % (37.0-47.0); Hemoglobin 15.1 g/dL (12.2-16.2); Lymphocytes # 2.6 K/mm3 (0.7-4.5); Mean Corpuscular HGB Conc 32.9 g/dL (31.8-35.4); Mean Corpuscular Hemoglobin 32.6 pg (27.0-31.2); Mean Platelet Volume 8.4 fl (7.4-10.4); Monocytes # 0.4 K/mm3 (0.1-1.0); Monocytes % 3.5 % (1.7-9.3); Neutrophils # 7.1 K/mm3 (1.8-7.8); Neutrophils % 67.4 % (37.0-80.0); Platelet Count 386 K/mm3 (142-424); Red Blood Count 4.62 M/mm3 (4.20-5.40); Red Cell Distribution Width 13.7 % (11.5-17.5); White Blood Count 10.5 K/mm3 (4.8-10.8)
[2021-09-19 13:35] LABS: Hemoglobin A1C 8.1 % (4.0-6.0)
== END ==
PROVIDERS: PCP Nurse Practitioner Family; Visit Provider Orthopaedic Surgery
DX: J98.4 Other disorders of lung (principal); E11.9 Type 2 diabetes mellitus without complications; Z79.84 Long term (current) use of oral hypoglycemic drugs
CPT/HCPCS: 36415; 71046; 80053; 83036; 85025

== ENCOUNTER → 2021-09-23 06:47 | Outpatient (CLI) | payer OTHER, SELFPAY ==
--- NOTE | 2021-09-23 | CA_ITS ---
APPROVED REPORT Exam: Pharmacologic Technologist: Anastacia Veloz Ht: 6 ft 0 in Wt: 294 lbs BSA: 2.51 m2 HR: 95 bpm BP: 103/72 mmHg Indications: Chest pain, Shortness of Air Medical History Medications: Metformin,,,,, Gabapentin,,,,, Pantoprazole,,,,, Tramadol,,,,, Diclofenac,,,,, DulOXETINE,,,,, DulaGLUTIDE,,,,, Stress Test Details Test: LEXISCAN HR Resting HR: 108 bpm Max Heart Rate (APMHR): 180.470235 bpm Max HR Achieved: 120 bpm Target HR (85% APMHR): 153.346523 bpm % of APMHR: 66.67 Recovery HR: 100 bpm BP Resting BP: 103.0/72.0 mmHg Max BP: 130.0/97.0 mmHg Recovery BP: 114.0/73.0 mmHg ECG Resting ECG: Normal sinus rhythm, rightward axis. Clinical Exercise duration: 04:00 min Highest Stage Achieved: Exercise capacity: 1.0 METs Stress ECG Conclusion Symptoms: Mild shortness of air, head discomfort. No chest pain. Arrhythmias/Ectopy: None ST-T Changes: No significant changes. Conclusion: Unremarkable Lexiscan stress. Myoview images reported separately. Test Summary . . Myoview Injected . . . Stop exercise at 04:00 . . . . Electronically signed by : Dennis Fernandes MD 09/23/2021 19:51:58
--- NOTE | 2021-09-23 06:56 | NM_ITS ---
APPROVED REPORT Exam: Nuclear Stress Test Indication: Chest pain, DM, Pre op Patient Location: Outpatient Stress Tech: Anastacia Veloz NM Tech:Sue High, ARRT, RT (R)(N) Ht: 6 ft 0 in Wt: 290 lbs Bra Size: 44DD HR: 108 bpm BP: 103/72 mmHg BSA: 2.49 m2 Procedure: Patient received a 0.4 mg of intravenous Lexiscan, resting heart rate 108 bpm, resting blood pressure 103/72 mmHg, with Lexiscan maximum heart rate achived was 120 bpm which is Less than 85 % of the maximum predicted heart rate and blood pressure was 130/97 mmHg. With Lexiscan, patient denied any complaint of chest pain. Electrocardiogram Resting electrocardiogram shows sinus rhythm, with the Lexiscan there is less than 1.[address] segment depression noted from the baseline EKG. The EKG portion of the Lexiscan is nondiagnostic. Cardiac Stress and Resting SPECT Images: Cardiac Stress and Resting SPECT images were obtained using technetium 99m Myoview 29.9 mCi stress and 10.82 mCi at rest. Gated SPECT for analysis of segmental wall motion and calculation of the ejection fraction also done. Cardiac stress and rest SPECT images show uniform myocardial activity without segmental perfusion abnormality, however there is transient ischemic dilatation of the left ventricle seen. Computer derived ejection fraction is 57% with no regional wall motion abnormality, right ventricle is normal size and contractility. Conclusion: 1. The EKG portion of the Lexiscan is nondiagnostic. 2. No scintigraphic evidence of reversible ischemia seen, however there is transient ischemic dilatation of the left ventricle seen, raising the concerns for presence of balanced ischemia, other causes for transient ischemic dilatation include elevated left ventricular end-diastolic pressure, microvascular disease, hypertensive heart disease and diabetes mellitus. 3. Abnormal myocardial perfusion imaging due to transient ischemic dilatation of the left ventricle, clinical correlation is recommended. Electronically signed by : Dennis Fernandes MD 09/23/2021 20:02:32
--- NOTE | 2021-09-23 07:49 | CA_ITS ---
APPROVED REPORT EXAM: Comprehensive 2D, Doppler, and color-flow Echocardiogram Mold Shaker: Lissy Sandoval RVT Ht: 6 ft 0 in Wt: 294lbs BSA: 2.51 BP: 124/81 mmHg Indications: CP,PRE-OP,TACHYCARDIA,REACTIVE AIRWAY DISEASE,EX SMOKER,DM,OBESITY 2D Dimensions LVOT 2.19 cm (M/F) 1.5-2.5 LA Volume 36.60 mL LA Volume Index 14.58 mL/m2 (M/F) 16-34 M-Mode Dimensions RVDd 2.38 cm (0.9-2.6) LA Diam 3.77 cm (1.9-4.0) LVDd 4.84 cm (3.5-5.7) Ao Diam 2.65 cm (2.0-3.7) LVDs 3.05 cm (3.5-5.7) IVSd 0.98 cm (0.6-1.1) PWd 0.59 cm (0.6-1.1) EF (Teich) 66.80% FS 37.00% EDV (Teich) 109.60 mL TAPSE 2.30 (<1.7) ESV (Teich) 36.40 mL LV Diastology E Decel Time 223.00 (160-240 msec) E/A Ratio 0.8 MED E' 7.10 (< 7 cm/sec) E'/MED E' Ratio 9.30 (>14) LAT E' 7.40 (<10 cm/sec) E/LAT E' Ratio 8.92 (>14) Mitral Valve MV E Max Bradly. 66.00 (40-130 cm/s) MV A Velocity 86.00 (40-130 cm/s) E/A Ratio 0.76 MV Decel. Time 223.00 (160-240 ms) MV PHT 65.00 ms Pulmonary Valve PV Peak Velocity 128.00 (50-150 cm/s) Left Ventricle Left atrium is mildly enlarged, left ventricle is normal size, mild concentric left ventricular hypertrophy, visually estimated ejection fraction 55% with no regional wall motion abnormality, grade 1 diastolic dysfunction seen without tissue Doppler evidence of raise left atrial pressure. Right Ventricle Right atrium and right ventricle are normal size and contractility. Aortic Valve Aortic valve is minimally fibrosed there is no aortic stenosis or aortic insufficiency Mitral Valve Mitral valve grossly normal, there is trace mitral regurgitation. Tricuspid Valve Tricuspid grossly normal, there is trace tricuspid regurgitation, tricuspid regurgitation jet velocity is inadequate for calculation of the right ventricular systolic pressure. Pulmonic Valve Pulmonic valve is poorly visualized. Great Vessels Aortic root is normal size. Inferior vena cava is poorly visualized. Pericardium No significant pericardial effusion. Conclusion 1. Mildly enlarged left atrium, normal left ventricular size, mild concentric left ventricular hypertrophy, visually estimated ejection fraction 55% with no regional wall motion abnormality, grade 1 diastolic dysfunction seen without tissue Doppler evidence of raise left atrial pressure. 2. Trace mitral and tricuspid regurgitation. 3. No significant pericardial effusion. 4. Inferior vena cava is poorly visualized. Electronically signed by : Dennis Fernandes MD 09/23/2021 19:35:07
--- NOTE | 2021-09-23 08:59 | HMH.ITSHM ---
Current Home Medications as stated by this patient Kiana Murcia or off premise service representative. []TRAMADOL PANTOPRAZOLE METFORMIN DULOXETINE GABAPENTIN TRULICITY DICLOFENAC
== END ==
PROVIDERS: PCP Nurse Practitioner Family; Referring Provider Orthopaedic Surgery; Visit Provider Urology
DX: Z01.810 Encounter for preprocedural cardiovascular examination (principal); Z11.52 Encounter for screening for COVID-19; R00.0 Tachycardia, unspecified; E66.9 Obesity, unspecified; Z68.39 Body mass index [BMI] 39.0-39.9, adult
CPT/HCPCS: 78452; 93017; 93306; A9502; C9803; J2785; U0003; U0005

== ENCOUNTER → 2021-10-03 08:13 | Outpatient (CLI) | payer OTHER, SELFPAY ==
[2021-10-03 09:46] LABS: Basophils # 0.1 K/mm3 (0-0.2); Basophils % 0.5 % (0.1-2.0); Eosinophils # 0.2 K/mm3 (0.0-0.4); Eosinophils % 1.7 % (0.1-12.0); Hematocrit 45.8 % (37.0-47.0); Hemoglobin 15.3 g/dL (12.2-16.2); Lymphocytes # 3.5 K/mm3 (0.7-4.5); Lymphocytes % 26.4 % (10-50); Mean Corpuscular HGB Conc 33.3 g/dL (31.8-35.4); Mean Corpuscular Hemoglobin 32.7 pg (27.0-31.2); Mean Corpuscular Volume 98.4 fl (81-99); Monocytes # 0.6 K/mm3 (0.1-1.0); Monocytes % 4.2 % (1.7-9.3); Neutrophils # 8.9 K/mm3 (1.8-7.8); Neutrophils % 67.3 % (37.0-80.0); Platelet Count 419 K/mm3 (142-424); Red Blood Count 4.66 M/mm3 (4.20-5.40); Red Cell Distribution Width 13.7 % (11.5-17.5); White Blood Count 13.3 K/mm3 (4.8-10.8)
[2021-10-03 11:26] LABS: Anion Gap 14.3 mEq/L (5-15); Blood Urea Nitrogen 11 mg/dl (7-17); Calcium 9.5 mg/dl (8.4-10.2); Carbon Dioxide 26 mmol/L (22.0-30.0); Chloride 101 mmol/L (98-107); Estimated Glomerular Filt Rate 177 ml/min (>60); GFR (African American) 214 ML/MIN (>60); Glucose 146 mg/dl (74-100); Potassium 4.3 mmoL/L (3.5-5.1); Sodium 137 mmol/L (136-145)
== END ==
PROVIDERS: PCP Nurse Practitioner Family; Visit Provider Nurse Practitioner Family
DX: Z01.810 Encounter for preprocedural cardiovascular examination (principal); Z11.52 Encounter for screening for COVID-19; R06.00 Dyspnea, unspecified; I20.8 Other forms of angina pectoris; R00.0 Tachycardia, unspecified; I63.9 Cerebral infarction, unspecified; I10 Essential (primary) hypertension; E11.69 Type 2 diabetes mellitus with other specified complication; R94.31 Abnormal electrocardiogram [ECG] [EKG]; R94.39 Abnormal result of other cardiovascular function study; Z79.84 Long term (current) use of oral hypoglycemic drugs
CPT/HCPCS: 36415; 80048; 85025; C9803; U0003; U0005

== ENCOUNTER → 2021-10-10 10:38 | Outpatient (CLI) | payer OTHER, SELFPAY | PROVIDERS: Visit Provider Internal Medicine | DX: Z01.812 Encounter for preprocedural laboratory examination (principal); Z11.52 Encounter for screening for COVID-19; R94.39 Abnormal result of other cardiovascular function study | CPT/HCPCS: C9803; U0003; U0005 ==

== ENCOUNTER 2021-10-13 08:55 | Day surgery (SDC) | payer OTHER, SELFPAY ==
[2021-10-13] VITALS (12 sets, daily range): BP systolic 113–157; BP diastolic 70–90; PULSE 89–102; RESP 16–19; TEMP 36.9; O2SAT 94–97; BMI 39.9
--- NOTE | 2021-10-13 | IR_ITS ---
APPROVED REPORT Patient Location: Outpatient [employer] Team Member: TIARA Flores RT (R) PROCEDURES Left heart catheterization Left ventriculogram Selective coronary angiogram INDICATION Preoperative evaluation, Abnormal Myoview Informed consent was obtained prior to the procedure. COMPLICATIONS None Estimated Blood Loss: Less than 10 mls TECHNIQUE One percent lidocaine used to anesthetize the right anterior aspect of the wrist. The right radial artery was accessed via the Seldinger technique. A 6 Haitian sheath was placed in the right radial artery. 2.5 mg of verapamil, 800 mcg of nitroglycerin, 1mg Lidocaine and 5000 U Heparin were given through the arterial sheath. The Poppa catheter was also used to perform left heart catheterization, left ventriculogram and selective coronary angiogram. At the end of the procedure the sheath was removed good hemostasis was achieved using Traclet band, patient was transferred to the postop holding area in stable condition. ANGIOGRAPHIC RESULTS The left main artery Normal The left anterior descending artery Normal The circumflex artery Normal The right coronary artery Dominant normal The BURDICK ventriculogram reveals Preserved at 55% The left ventricular end-diastolic pressure Moderate to severely elevated at 30 to 35 mmHg IMPRESSION Normal coronary arteries Preserved ejection fraction Moderate to severely elevated LVEDP consistent with diastolic dysfunction PLAN 1. Patient is a low and acceptable risk from a cardiac standpoint to proceed with gastric bypass surgery. The gastric bypass surgery should treat patient's diastolic dysfunction via weight loss. Electronically signed by : Joaquín Nuñez MD 10/13/2021 10:12:14
[2021-10-13 10:04] LABS: HCG Qualitative, Serum Negative (Negative)
== END 2021-10-13 13:00 | disposition home or self-care (01) ==
LOC: CATHLAB 08:55
PROVIDERS: PCP Nurse Practitioner Family; Visit Provider Internal Medicine
DX: R94.39 Abnormal result of other cardiovascular function study (principal); E11.9 Type 2 diabetes mellitus without complications; Z79.4 Long term (current) use of insulin; Z82.49 Family history of ischemic heart disease and other diseases of the circulatory system; Z79.899 Other long term (current) drug therapy
CPT/HCPCS: 84703; 93458; 99152; C1725; C1769; J1644; Q9967

== ENCOUNTER → 2021-11-13 08:48 | Outpatient (POV) | payer OTHER, SELFPAY ==
[2021-11-13 09:30] VITALS: BP 148/91; PULSE 106; RESP 20; TEMP 36.4; O2SAT 97; BMI 37.3
--- NOTE | 2021-11-13 09:54 | HMH.PAINSOAP ---
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 Patient is currently being managed with tramadol 50 mg twice a day, gabapentin 100 mg 3 times a day. Patient denies any side effects from these medications. She denies any change in location type of pain. Patient states that she ran out of tramadol couple weeks ago and has noticed an increase in her pain. She is also taking diclofenac tablet with no relief. She says that she was buying a diclofenac gel which helps more than the tablet. We have tried lumbar epidural steroid injection and bilateral SI injections with the patient with no relief of symptoms. She did see Dr. Cesar, neurosurgeon, previously who said that she cannot have any surgeries yet due to all the inflammation in her body. She will be meeting Dr. Cesar in December for followup. Patient also states that she has been having worsening muscle spasms in the last 2 weeks. She says that one time, she had to call EMS to get her off the floor. Rates her pain today 7 out of 10. [facility] #[id number] with an active morphine equivalent of 0. Review of Systems General: No recent weight changes, no fever, no sleep disturbances Respiratory: No cough, no shortness of air, no recurring pulmonary infections Cardiovascular/peripheral vascular: No chest pain, no palpitations, no edema, no shortness of breath Gastrointestinal: No new onset incontinence, normal bowel movements reported Genitourinary: No new onset incontinence Musculoskeletal: Low back pain, hip pain Psychiatric: [Normal mood/affect] Neurological: [Denies weakness in extremities], [denies balance issues] Objective:: General: Alert and oriented x3, no acute distress, pleasant and cooperative, [on room air] Lungs: Respirations even and unlabored, symmetrical chest expansion Eyes: PERRL Musculoskeletal: Flexion and extension of lumbar [spine] somewhat guarded secondary to pain, [antalgic gait noted] Neurological: Speech clear, no gross sensory deficit Assessment:: Degenerative disc disease of the lumbar spine with lumbar radiculopathy symptoms Fibromyalgia Plan:: We will continue the patient's gabapentin 100 mg 3 times a day and tramadol 50 mg twice a day. I will start the patient on Robaxin 500 mg twice a day and diclofenac gel. We will provide the patient with 1 month worth of refill. Patient is also taking Cymbalta 90 mg daily that is prescribed by her PCP. Follow-up in 1 month Patient has been instructed to contact the clinic with any concerns before the next appointment. Dr. Aldana has reviewed this note and agrees with this plan of care. This note was dictated using voice recognition software and make contain errors or omissions. [facility] History Medical History: Reports:: Anxiety, Asthma, Depression, Diabetes Mellitus Type 2, Migraine Denies:: Cancer, Diabetes Mellitus Type 1, Internal Pacemaker, MRSA, Seizures *Have you ever received a pneumonia vaccine?: Yes *Have you received a flu vaccine this season?: No Other Medical History: Denies: Blood Transfusion Reaction Laterality Cases: Bilateral: Tonsillectomy, Total Hip Replacement Other Surgeries: Yes: No Previous Surgery, Cardiac Catheterization. No: Pacemaker Amputation: No Fractures: No - *Social History Smoking Status: Former smoker Tobacco Type: cigarettes # Packs/Day (cigarettes): 1 Alcohol Intake: never Substance Use Type: denies use *Occupational Status:: other Housing: house Household Members: family *Travel in the last 8 weeks: None - Psychiatric History Pschychiatric History:: Reports:: Anxiety, Depression Family Hx:: Cancer, Diabetes, Stroke
--- NOTE | 2021-11-17 14:46 | PC.NURSE ---
called in Rx for Methocarbomol 500mg PO BID with no refills. Do not refill date for 12/12/21.
== END ==
PROVIDERS: Visit Provider Student in an Organized Health Care Education/Training Program
DX: M51.16 Intervertebral disc disorders with radiculopathy, lumbar region (principal); M79.18 Myalgia, other site
CPT/HCPCS: 99212; G0463

== ENCOUNTER → 2021-11-14 15:09 | Outpatient (CLI) | payer OTHER, SELFPAY ==
[2021-11-14 15:31] LABS: Basophils # 0.4 K/mm3 (0-0.2); Basophils % 2.6 % (0.1-2.0); Eosinophils # 0.4 K/mm3 (0.0-0.4); Hematocrit 45.8 % (37.0-47.0); Hemoglobin 15.1 g/dL (12.2-16.2); Lymphocytes # 4.1 K/mm3 (0.7-4.5); Mean Corpuscular HGB Conc 32.9 g/dL (31.8-35.4); Mean Corpuscular Hemoglobin 32.5 pg (27.0-31.2); Mean Corpuscular Volume 98.8 fl (81-99); Mean Platelet Volume 7.9 fl (7.4-10.4); Monocytes # 0.5 K/mm3 (0.1-1.0); Neutrophils # 7.9 K/mm3 (1.8-7.8); Neutrophils % 59.4 % (37.0-80.0); Platelet Count 385 K/mm3 (142-424); Red Blood Count 4.64 M/mm3 (4.20-5.40); Red Cell Distribution Width 13.9 % (11.5-17.5); White Blood Count 13.3 K/mm3 (4.8-10.8)
[2021-11-14 16:08] LABS: Hemoglobin A1C 7.3 % (4.0-6.0)
[2021-11-14 17:12] LABS: Alanine Aminotransferase 44 U/L (12-78); Albumin Level 4.1 g/dl (3.5-5.0); Albumin/Globulin Ratio 1.6 (1.1-1.8); Alkaline Phosphatase 77 U/L (38-126); Anion Gap 11.1 mEq/L (5-15); Aspartate Amino Transferase 32 U/L (14-36); Bilirubin,Total 0.6 mg/dl (0.2-1.3); Blood Urea Nitrogen 10 mg/dl (7-17); Calcium 9.5 mg/dl (8.4-10.2); Carbon Dioxide 28 mmol/L (22.0-30.0); Chloride 102 mmol/L (98-107); Estimated Glomerular Filt Rate 137 ml/min (>60); GFR (African American) 165 ML/MIN (>60); Globulin 2.6 g/dL (1.3-3.2); Glucose 128 mg/dl (74-100); Potassium 4.1 mmoL/L (3.5-5.1); Sodium 137 mmol/L (136-145); Total Protein,Serum 6.7 g/dl (6.3-8.2)
== END ==
PROVIDERS: PCP Nurse Practitioner Family; Visit Provider Orthopaedic Surgery
DX: Z01.818 Encounter for other preprocedural examination (principal)
CPT/HCPCS: 36415; 80053; 83036; 85025

== ENCOUNTER → 2021-12-03 13:29 | Outpatient (CLI) | payer OTHER, SELFPAY ==
[2021-12-03 13:49] LABS: Urine Pregnancy, HCG Qual. Negative (Negative)
== END ==
PROVIDERS: Visit Provider Orthopaedic Surgery
DX: Z01.818 Encounter for other preprocedural examination (principal); Z11.52 Encounter for screening for COVID-19
CPT/HCPCS: 81025; C9803; U0003; U0005

== ENCOUNTER 2021-12-05 08:52 | Day surgery (SDC) | payer OTHER, SELFPAY ==
[2021-12-03 11:38] VITALS: BMI 37.5
[2021-12-05 09:05] VITALS: BP 128/84; PULSE 101; RESP 18; TEMP 36.6; O2SAT 97
--- NOTE | 2021-12-05 09:47 | P.PN_ITS ---
[facility] Anesthesia Checklist - Patient Identification Patient Identification: Arm Band, Verbal (Name & ) - Structural Data Admitted From: Home Planned Operative Procedure/s: Endoscopic Right Carpal Tunnel Repair Consent for Planned Operative Procedure(s) Verified: Yes Verified Documents: Surgical Consent - NPO Status Verified Time NPO: 00:00 - Additional verifications Anesthesia Reactions: No Hx Blood Transfusions: No Blood Transfusion Reaction: No - Airway Assessment C-Spine Mobility Assessed: Yes TMJ Mobility Assessed: Yes Dentition: Good Dentition - Neurological Assessment Level of Consciousness: Awake, Alert, Appropriate - Anesthesia Plan Anesthesia Risk discussed: Yes ASA Class: II Anesthesia Type: MAC [facility] History I have reviewed the patient's past medical history: Yes Medical History: Reports:: Anxiety, Asthma, Depression, Diabetes Mellitus Type 2, Migraine Denies:: Cancer, Diabetes Mellitus Type 1, Internal Pacemaker, MRSA, Seizures *Have you ever received a pneumonia vaccine?: No *Have you received a flu vaccine this season?: Yes Other Medical History: Denies: Blood Transfusion Reaction Anesthesia experience/problems:: no issues Laterality Cases: Bilateral: Tonsillectomy, Total Hip Replacement Other Surgeries: Yes: No Previous Surgery, Cardiac Catheterization. No: Pacemaker Amputation: No Fractures: No - *Social History Last grade of school completed: Advanced degree Smoking Status: Former smoker Tobacco Type: cigarettes # Packs/Day (cigarettes): 1 Alcohol Intake: never Substance Use Type: denies use *Occupational Status:: retired Housing: house Household Members: family *Travel in the last 8 weeks: None - Psychiatric History Pschychiatric History:: Reports:: Anxiety, Depression Family Hx:: Cancer, Diabetes, Stroke
[2021-12-05 10:22] VITALS: BP 101/64; PULSE 106; RESP 18; TEMP 36.8; O2SAT 98
[2021-12-05 10:37] VITALS: BP 106/66; PULSE 98; RESP 18; O2SAT 99
--- NOTE | 2021-12-05 10:40 | HMH.OPNOTE ---
Date of procedure: 12/05/21 Pre-op Diagnosis:: Right carpal tunnel syndrome Post-op Diagnosis:: Same Procedure performed:: [id number]: Right endoscopic carpal tunnel release Surgeon:: Nimesh Ragland JR, MD Public Information Director(s):: Norma Dennis PA-C DISH TECHNICIAN:: Other Anesthesia: MAC Estimated blood loss (mL): 2 Clinical Note:: 41-year-old female with right carpal tunnel syndrome refractory to conservative measures. She had thenar wasting, positive Tinel sign, two-point discrimination to 3 mm on exam. She complained of numbness and tingling that woke her up at night. She had been cleared by cardiology previously for surgery and was referred to me for further management. I had a discussion with her regarding further management including possible repeat corticosteroid injections versus operative intervention. Given the chronic nature of her symptoms, thenar wasting, night symptoms, she was interested in more durable intervention. We discussed the possibility of open release versus endoscopic carpal tunnel release. I recommended right endoscopic carpal tunnel release. He is amenable with the plan. We discussed the risk and benefits of surgery. Risks included but were not limited to pain, bleeding, infection, damage to adjacent structures, need for further surgery, wound healing complications, loss of limb, . Patient expressed verbal consent and written consent was obtained for the above procedure. Operative findings:: Transverse carpal ligament transection confirmed endoscopically and via palpation with freer. Operative note:: Patient was identified in preoperative holding. Operative site was marked in indelible ink. History, physical, consent were reviewed and updated. Patient was surrendered to the anesthesia team, taken to the operative suite, placed supine on a well-padded operative table. A nonsterile tourniquet placed on the proximal brachium. Anesthesia was induced. The operative extremity was prepped and draped in the usual sterile fashion. The operative team donned sterile gowns and gloves and a timeout was called. All in attendance agreed regarding the patient's identity, procedure, operative site. Weight-based dose of antibiotics was given prior to incision. I made a transverse incision at the proximal wrist crease proximal to the transverse carpal ligament. I bluntly dissected through skin and subcutaneous tissue with care taken to avoid injuring the palmaris longus. I transected the fascia, inserted a dilating probe deep to the transverse carpal ligament and noted its depth distal to the transverse carpal ligament. I then inserted a cannula and scope, visualize the fibers of the transverse carpal ligament. I took to the distal aspect of the transverse carpal ligament to confirm its location, then with a curved blade under endoscopic visualization, transected the fibers of the transverse carpal ligament and noted that they retracted medially and laterally. I removed the cannula, achieved hemostasis, closed with Monocryl, Prineo and Dermabond. Dressings were applied. Counts were correct x2. There were no apparent complications. I was present scrubbed for the entire case. Postoperatively, plan to leave dressing in place for 5 days, then remove all but Prineo. Okay to shower but do not soak wound at that point. Finger mobility, limit weightbearing to 10 pounds until follow-up in 2 weeks at which point I anticipate initiating physical therapy. Tourniquet time (min): 24 Condition: stable Disposition: PACU Complications:: None apparent.
[2021-12-05 10:52] VITALS: BP 111/62; PULSE 97; RESP 18; TEMP 36.7; O2SAT 99
[2022-05-21 10:59] LABS: POC Glucose,Bedside 218 (70-110)
== END 2021-12-05 10:52 | disposition home or self-care (01) ==
LOC: OR 08:53
PROVIDERS: PCP Nurse Practitioner Family; Visit Provider Orthopaedic Surgery
PROC: (CPT 64721; principal; 2021-12-05 10:15)
DX: G56.01 Carpal tunnel syndrome, right upper limb (principal)
CPT/HCPCS: 64721; 82962; 96374; J2405

== ENCOUNTER → 2021-12-15 12:10 | Outpatient (CLI) | payer OTHER, SELFPAY ==
[2021-12-15 12:21] LABS: Adenovirus F 40/41, stool Not Detected (NotDetected); Astrovirus Not Detected (NotDetected); Campylobacter Not Detected (NotDetected); Clostridium Difficile A/B, PCR Not Detected (NotDetected); Cryptosporidium Not Detected (NotDetected); Cyclospora Cayetanesis Not Detected (NotDetected); Entamoeba histolytica Not Detected (NotDetected); Enteroaggregative E coli Not Detected (NotDetected); Enteropathogenic E coli Not Detected (NotDetected); Enterotoxigenic E coli Not Detected (NotDetected); Giardia lamblia Not Detected (NotDetected); Norovirus Not Detected (NotDetected); Plesimonas Shigalloides, PCR Not Detected (NotDetected); Rotavirus A Not Detected (NotDetected); Salmonella, PCR Not Detected (NotDetected); Sapovirus Not Detected (NotDetected); Shiga-like toxin E coli Not Detected (NotDetected); Shigella Enterovasive E coli Not Detected (NotDetected); Vibrio Cholerae Not Detected (NotDetected); Vibrio, PCR Not Detected (NotDetected); Yersinia Entercolitica, PCR Not Detected (NotDetected)
[2021-12-15 12:31] LABS: Basophils # 0.1 K/mm3 (0-0.2); Basophils % 0.5 % (0.1-2.0); Eosinophils # 0.4 K/mm3 (0.0-0.4); Eosinophils % 3.9 % (0.1-12.0); Hematocrit 42.1 % (37.0-47.0); Hemoglobin 14.6 g/dL (12.2-16.2); Lymphocytes # 3.1 K/mm3 (0.7-4.5); Lymphocytes % 27.7 % (10-50); Mean Corpuscular HGB Conc 34.6 g/dL (31.8-35.4); Mean Corpuscular Hemoglobin 32.4 pg (27.0-31.2); Mean Corpuscular Volume 93.8 fl (81-99); Monocytes # 0.4 K/mm3 (0.1-1.0); Monocytes % 3.5 % (1.7-9.3); Neutrophils # 7.2 K/mm3 (1.8-7.8); Neutrophils % 64.4 % (37.0-80.0); Platelet Count 370 K/mm3 (142-424); Red Blood Count 4.49 M/mm3 (4.20-5.40); Red Cell Distribution Width 14.1 % (11.5-17.5); White Blood Count 11.2 K/mm3 (4.8-10.8)
[2021-12-15 22:35] LABS: Chloride 102 mmol/L (98-107)
[2021-12-15 22:36] LABS: Potassium 3.4 mmoL/L (3.5-5.1); Sodium 134 mmol/L (136-145)
[2021-12-15 22:38] LABS: Alanine Aminotransferase 54 U/L (12-78); Alkaline Phosphatase 89 U/L (38-126); Anion Gap 13.4 mEq/L (5-15); Aspartate Amino Transferase 48 U/L (14-36); Bilirubin,Total 1.2 mg/dl (0.2-1.3); Blood Urea Nitrogen 7 mg/dl (7-17); Carbon Dioxide 22 mmol/L (22.0-30.0); Estimated Glomerular Filt Rate 136 ml/min (>60); GFR (African American) 165 ML/MIN (>60)
[2021-12-15 22:39] LABS: Albumin Level 3.6 g/dl (3.5-5.0); Albumin/Globulin Ratio 1.4 (1.1-1.8); Calcium 9.4 mg/dl (8.4-10.2); Globulin 2.5 g/dL (1.3-3.2); Glucose 203 mg/dl (74-100); Total Protein,Serum 6.1 g/dl (6.3-8.2)
[2021-12-15 22:46] LABS: Hemoglobin A1C 7.4 % (4.0-6.0)
== END ==
PROVIDERS: Visit Provider Nurse Practitioner Family
DX: R11.10 Vomiting, unspecified (principal); R19.7 Diarrhea, unspecified
CPT/HCPCS: 36415; 80053; 83036; 85025; 87507

== ENCOUNTER → 2022-01-05 10:26 | Outpatient (POV) | payer OTHER, SELFPAY ==
[2022-01-05 10:53] VITALS: BP 153/94; PULSE 108; RESP 18; TEMP 36.7; O2SAT 99; BMI 36.6
--- NOTE | 2022-01-05 14:36 | HMH.PAINSOAP ---
[facility] Pain Management SOAP Note Subjective:: Patient is a pleasant 41-year-old female who is here for medication refill and follow-up. Patient is currently being treated for degenerative disc disease of lumbar spine with lumbar radiculopathy symptoms, chronic back pain, fibromyalgia. Patient is being managed with tramadol 50 mg twice a day, gabapentin 100 mg 3 times a day. Patient denies any side effects from the medications. Patient denies any changes to the location and type of pain. Patient has tried lumbar epidural steroid injection and bilateral SI injections with minimal relief. We have referred the patient to neurosurgery and rheumatology for further evaluation. Patient recently saw a rheumatology. Rheumatology recommends that the patient stops taking Cymbalta and the Robaxin because they were not helping the patient. She was told to either increase her gabapentin or change her gabapentin to Lyrica to manage fibromyalgia. She was also recommended to try other fibromyalgia medications. A list of this medication was given to the patient. Patient will talk with her PCP in regards to these medications. She also just saw neurosurgery who said that she is a nonsurgical candidate. They recommend that we do medial branch block injections/RFA or epidural steroid injections to manage the patient's low back pain. She was started with meloxicam by the neurosurgeons. She is to take this medication every day. Rates pain as 8 out of 10. [facility] number [id number] with an active morphine equivalent 0. Drug screens have been reviewed and appropriate. Review of Systems: General: No recent weight changes, no fever, no sleep disturbances Respiratory: No cough, no shortness of air, no recurring pulmonary infections Cardiovascular/peripheral vascular: No chest pain, no palpitations, no edema, no shortness of breath Gastrointestinal: No new onset incontinence, normal bowel movements reported Genitourinary: No new onset incontinence Musculoskeletal: Low back pain Psychiatric: [Normal mood/affect] Neurological: [Denies weakness in extremities], [denies balance issues] Objective:: Physical Exam: General: Alert and oriented x3, no acute distress, pleasant and cooperative Lungs: Respirations even and unlabored, symmetrical chest expansion Eyes: PERRL Musculoskeletal: Flexion and extension of lumbar [spine] somewhat guarded secondary to pain, [antalgic gait noted] Neurological: Speech clear, no gross sensory deficit Assessment:: Degenerative disc disease of lumbar spine with lumbar radiculopathy symptoms, sacroiliitis, lumbar facet arthropathy, fibromyalgia Plan:: I will increase the patient's gabapentin to gabapentin 300 mg 3 times a day. We will continue the patient's tramadol 50 mg twice a day. We will provide the patient with 1 month worth of refill. We would like to see the patient Neurosurgery recommends that we try medial branch block with the patient. Per the patient's MRI, she would most likely benefit from medial branch block bilaterally at L4-L5 and L5-S1. Risks and benefits of the procedure have been explained to the patient. Patient would like to proceed with the procedure. Patient is not on any blood thinners. Follow-up after the injection Patient has been instructed to contact the clinic with any concerns before the next appointment. Dr. Aldaan has reviewed this note and agrees with this plan of care. This note was dictated using voice recognition software and make contain errors or omissions. [facility] History Medical History: Reports:: Anxiety, Asthma, Depression, Diabetes Mellitus Type 2, Migraine Denies:: Cancer, Diabetes Mellitus Type 1, Internal Pacemaker, MRSA, Seizures *Have you ever received a pneumonia vaccine?: No *Have you received a flu vaccine this season?: No Other Medical History: Denies: Blood Transfusion Reaction Laterality Cases: Right: Carpal Tunnel Release, Bilateral: Tonsillectomy, Total Hip Replacement Other Surge
== END ==
PROVIDERS: Visit Provider Student in an Organized Health Care Education/Training Program
DX: M51.16 Intervertebral disc disorders with radiculopathy, lumbar region (principal); M46.1 Sacroiliitis, not elsewhere classified; M47.896 Other spondylosis, lumbar region; M79.7 Fibromyalgia
CPT/HCPCS: 99212; G0463

== ENCOUNTER 2022-01-16 10:18 | Day surgery (SDC) | payer OTHER, SELFPAY ==
[2022-01-16 10:26] VITALS: BP 132/89; PULSE 114; RESP 20; TEMP 36.5; O2SAT 98; BMI 36.6
[2022-01-16 10:47] VITALS: BP 127/85; PULSE 105; RESP 20; O2SAT 95
[2022-01-16 10:49] VITALS: BP 126/86; PULSE 108; RESP 20; O2SAT 95
--- NOTE | 2022-01-16 10:58 | HMH.PMPROC ---
- Procedure Date: 01/16/22 Time: 10:58 Anesthesiologist:: Kofi Aldana MD Complications:: None Pre-procedure Diagnosis:: Degenerative disc disease of lumbar spine with lumbar spondylosis and lumbar facet arthropathy Post-procedure Diagnosis:: Same Indications for Procedure:: Patient is a pleasant 41-year-old white female who we are treating for low back pain with lumbar spondylosis and lumbar facet arthropathy. She is recently seen neurosurgery who said she is not a surgical candidate however they did recommend medial branch block/facet joint injections of L4-5 and L5-S1. We will plan on doing this today. Procedure Details:: Lumbar medial branch block Informed consent was obtained and the risks and benefits of the procedure was explained to the patient. The back was prepped using ChloraPrep. The skin and subcutaneous tissues were anesthetized using lidocaine. I placed 22-gauge spinal needles into the facet joint/medial branches of L4-L5 and L5-S1 bilaterally. Needle placement was confirmed with dye. After this we injected 3 mL bupivacaine 0.25% and Depo-Medrol 20 mg into each facet joint/medial branch of L4-L5 and L5-S1 bilaterally. We used a total of 80 mg Depo-Medrol for both levels bilaterally. The patient tolerated the procedure well with no complications. Plan and Disposition:: We will follow-up with her in 2 weeks. Will reevaluate her symptoms at that time.
[2022-01-16 11:13] VITALS: BP 139/83; PULSE 104; RESP 20; O2SAT 98
== END 2022-01-16 11:14 | disposition home or self-care (01) ==
LOC: SC.PAINP 10:18
PROVIDERS: PCP Nurse Practitioner Family; Visit Provider Anesthesiology
DX: M51.16 Intervertebral disc disorders with radiculopathy, lumbar region (principal); M54.06 Panniculitis affecting regions of neck and back, lumbar region; M47.26 Other spondylosis with radiculopathy, lumbar region; F41.9 Anxiety disorder, unspecified; G43.909 Migraine, unspecified, not intractable, without status migrainosus; J45.909 Unspecified asthma, uncomplicated; F32.A Depression, unspecified; M19.90 Unspecified osteoarthritis, unspecified site; E11.9 Type 2 diabetes mellitus without complications
CPT/HCPCS: 64493; 64494; J1040; Q9966

== ENCOUNTER → 2022-01-27 09:58 | Outpatient (POV) | payer OTHER, SELFPAY ==
[2022-01-27 10:12] VITALS: BP 153/96; PULSE 120; RESP 18; TEMP 36.6; O2SAT 96; BMI 36.1
--- NOTE | 2022-01-27 10:46 | HMH.PAINSOAP ---
[facility] Pain Management SOAP Note Subjective:: Patient is a pleasant 41-year-old female who presents today for follow-up after a diagnostic medial branch block/facet joint injections at L4-L5 and L5-S1 bilaterally on January 16, 2022. Patient is currently being treated for degenerative disease of lumbar spine with lumbar radiculopathy symptoms, chronic back pain, fibromyalgia, lumbar facet arthropathy, lumbar spondylosis. After the procedure, patient had significant relief of 90 to 100% for 1 to 2 days. She states that she was able to increase her activity for those two short days. Rates her pain today as 8 out of 10. In the past, we have tried SI injections and LESI that provided minimal relief. We have sent her to rheumatology for further eval. They recommended that we increase her Gabapentin so we increased it to Gabapentin 300mg TID. She was recently started on Venlafaxine by her PCP. With these two medications, she states that her fibromyalgia is better. She is also taking tramadol 50mg BID and using voltaren gel for pain which are also helping her. She is needing refills on her gabapentin, tramadol, and voltaren gel. She has seen neurosurgery who recommended that we try medial branch blocks first before they do any surgical treatment. She was also told that she needs to lose at least 40 lbs more before being considered for any surgery. Jace [id number], MEQ 10. Review of Systems: General: No recent weight changes, no fever, no sleep disturbances Respiratory: No cough, no shortness of air, no recurring pulmonary infections Cardiovascular/peripheral vascular: No chest pain, no palpitations, no edema, no shortness of breath Gastrointestinal: No new onset incontinence, normal bowel movements reported Genitourinary: No new onset incontinence Musculoskeletal: Low back pain Psychiatric: [Normal mood/affect] Neurological: [Denies weakness in extremities], [denies balance issues] Objective:: Physical Exam: General: Alert and oriented x3, no acute distress, pleasant and cooperative Lungs: Respirations even and unlabored, symmetrical chest expansion Eyes: PERRL Musculoskeletal: Flexion and extension of lumbar [spine] somewhat guarded secondary to pain, [antalgic gait noted] Neurological: Speech clear, no gross sensory deficit Assessment:: Degenerative disc disease of the lumbar spine with lumbar radiculopathy symptoms, lumbar facet arthropathy, lumbar spondylosis, fibromyalgia Plan:: We will schedule the patient for a repeat diagnostic medial branch block/facet injections at bilateral L4-L5 and L5-S1. Risk and benefits have been discussed with the patient. Patient would like to proceed with this procedure. Patient is not on any blood thinners. If the patient gets significant but temporary relief from this injection, we will consider moving forward with lumbar RFA. We will continue the patient's gabapentin 300 mg 3 times a day, tramadol 50 mg twice a day, and the diclofenac gel. We will provide the patient with 3 months worth of refill. Follow-up after the injection. Patient has been instructed to contact the clinic with any concerns before the next appointment. Dr. Aldana has reviewed this note and agrees with this plan of care. This note was dictated using voice recognition software and make contain errors or omissions. [facility] History Medical History: Reports:: Anxiety, Asthma, Depression, Diabetes Mellitus Type 2, Migraine Denies:: Cancer, Diabetes Mellitus Type 1, Internal Pacemaker, MRSA, Seizures *Have you ever received a pneumonia vaccine?: No *Have you received a flu vaccine this season?: No Other Medical History: Reports: Arthritis. Denies: Blood Transfusion Reaction Laterality Cases: Right: Carpal Tunnel Release, Bilateral: Tonsillectomy, Total Hip Replacement Other Surgeries: Yes: No Previous Surgery, Cardiac Catheterization. No: Pacemaker Amputation: No Fractures: No - *Social History Smoking Status: Former smoker Tobacco [employer]
== END ==
PROVIDERS: Visit Provider Student in an Organized Health Care Education/Training Program
DX: M51.16 Intervertebral disc disorders with radiculopathy, lumbar region (principal); M47.26 Other spondylosis with radiculopathy, lumbar region; M48.061 Spinal stenosis, lumbar region without neurogenic claudication; M79.7 Fibromyalgia; M54.9 Dorsalgia, unspecified; G89.29 Other chronic pain
CPT/HCPCS: 99212; G0463

== ENCOUNTER 2022-03-13 10:40 | Day surgery (SDC) | payer OTHER, SELFPAY ==
[2022-03-13 10:48] VITALS: BP 148/88; PULSE 112; RESP 18; TEMP 36.6; O2SAT 98; BMI 37.3
[2022-03-13 10:58] VITALS: BP 124/84; PULSE 103; RESP 20
[2022-03-13 11:06] VITALS: BP 140/84; PULSE 93; RESP 18; O2SAT 98
--- NOTE | 2022-03-13 11:07 | P.PCN_ITS ---
- Procedure Date: 03/13/22 Time: 11:07 Anesthesiologist:: Sterling Limon CRNA Complications:: None Pre-procedure Diagnosis:: Degenerative disc disease lumbar spine multiple levels. Multilevel lumbar facet arthropathy. Lumbar spondylosis. Post-procedure Diagnosis:: Same Indications for Procedure:: This patient is a pleasant 41-year-old female who has had these lumbar medial branch blocks in the past. She reports significant improvement lasting 1 to 2 days. She presents today for a second round at the L4-5 and L5-S1 levels bilaterally. She rates her pain 7/10. Procedure Details:: Informed consent was obtained and the risk and benefits of the procedure was explained to the patient. Patient was taken to the procedure room where noninvasive monitors were placed, including noninvasive blood pressure cuff as well as pulse oximeter. The area over the lumbar spine was cleansed using chlorhexidine as a cleansing solution. I anesthetized the skin and subcutaneous tissues with 1% Lidocaine. I placed 22-gauge spinal needles into the facet joint/ medial branches of L4-L5, and L5-S1] bilaterally. Needle placement was confirmed with fluoroscopy. After confirmation of needle placement, each site was injected with 1 mL of 1% lidocaine and 0.25 % Marcaine and 10 mg of Depo- Medrol. A total of 80 mg of depo medrol was used for bilateral medial branch blocks of L4-L5, and L5-S1] bilaterally. Patient tolerated the procedure without difficulty. There were no complications. Plan and Disposition:: Patient was discharged without incident.
== END 2022-03-13 11:07 | disposition home or self-care (01) ==
LOC: SC.PAINP 10:40
PROVIDERS: PCP Nurse Practitioner Family; Visit Provider Nurse Anesthetist, Certified Registered
DX: M51.16 Intervertebral disc disorders with radiculopathy, lumbar region (principal); M47.816 Spondylosis without myelopathy or radiculopathy, lumbar region; I10 Essential (primary) hypertension
CPT/HCPCS: 64493; 64494; J1040

== ENCOUNTER → 2022-04-02 10:09 | Outpatient (POV) | payer OTHER, SELFPAY ==
[2022-04-02 10:29] VITALS: BP 123/90; PULSE 85; RESP 20; BMI 37.3
--- NOTE | 2022-04-02 10:30 | HMH.PAINSOAP ---
[facility] Pain Management SOAP Note Subjective:: Is a pleasant 41-year-old female who presents today for follow-up from a medial branch block at L4-L5, L5-S1 bilaterally on 03/13/2022. We are currently treating the patient for degenerative disc disease of lumbar spine with lumbar radiculopathy symptoms, chronic back pain, fibromyalgia, lumbar facet arthropathy, lumbar spondylosis. Today she states that she did get significant improvement with her last injection. She states that she got about 40% relief however it lasted less than 24 hours. This is her second medial branch block. Her first injection did give 50% relief lasting more than 24 hours. Today the patient rates her pain a 8 out of 10 she states that this is a constant painful sensation in her low back and her hips. She states that it is a achy, throbbing sensation and now describes even a pulsating sensation that goes across her low back. Patient has been to see Dr. Cesar in [place] and stated that he would like to see her have the ablation and see how she does. Patient has also been to [facility] to have lumbar flexion and extension x-rays. She presents today with her results and hand. Patient denies any new trauma or injury to the site. Patient denies any change to the location of pain she experiences. We are currently managing the patient with gabapentin 300 mg 3 times a day and tramadol 50 mg 2 times a day. She denies any side effects with these medications. She states these medications are adequately managing her pain. She is requesting a refill at today's visit along with a refill on her diclofenac gel. Her Jace is [id number]. Is been reviewed and appropriate. Review of Systems: General: No recent weight changes, no fever, no sleep disturbances Respiratory: No cough, no shortness of air, no recurring pulmonary infections Cardiovascular/peripheral vascular: No chest pain, no palpitations, no edema, no shortness of breath Gastrointestinal: No new onset incontinence, normal bowel movements reported Genitourinary: No new onset incontinence Musculoskeletal: Low back pain, bilateral hip pain Psychiatric: [Normal mood/affect] Neurological: [Denies weakness in extremities], [denies balance issues] Objective:: Physical Exam: General: Alert and oriented x3, no acute distress, pleasant and cooperative Lungs: Respirations even and unlabored, symmetrical chest expansion Eyes: PERRL Musculoskeletal: Flexion and extension of lumbar [spine] somewhat guarded secondary to pain, [antalgic gait noted] Neurological: Speech clear, no gross sensory deficit [facility] 03/16/2022 X-ray spine lumbar flex and extension Findings: There is mild grade 1 anterolisthesis at L5-S1 which is unchanged in flexion and extension. There is no evidence of fracture. Multilevel spondylosis changes present, with loss of disc base height, small osteophytes and facet arthropathy. These changes appear most advanced at L4-5 and L5-S1 Impression: Multilevel spondylosis, most advanced at L4-5 and L5-S1. There is no evidence of dynamic listhesis. Assessment:: Degenerative disc disease of lumbar spine at the level with lumbar radiculopathy symptoms, multilevel lumbar facet arthropathy, lumbar spondylosis, chronic back pain, fibromyalgia Plan:: Patient is experiencing worsening pain in her low back and her hips today. Patient had positive point tenderness along her lumbar spine. Patient had positive Kemps test during today's exam. I have discussed with her doing a RFA of L4-L5, L5-S1. Risk and benefits were discussed with the patient. The patient would like to proceed forward with this procedure. Patient is not currently on any blood thinners. I will also refill the patient's gabapentin 300 mg 3 times a day and tramadol 50 mg twice a day. We will provide a 1 month supply of these medications. I will also refill the patient's diclofenac gel and provide 3 months worth with this medication. Patient will be nj
== END ==
PROVIDERS: PCP Nurse Practitioner Family; Visit Provider Nurse Practitioner Family
DX: M51.16 Intervertebral disc disorders with radiculopathy, lumbar region (principal); M47.26 Other spondylosis with radiculopathy, lumbar region; M79.7 Fibromyalgia; G89.29 Other chronic pain
CPT/HCPCS: 99212; G0463

== ENCOUNTER 2022-04-10 10:11 | Day surgery (SDC) | payer OTHER, SELFPAY ==
[2022-04-10 10:21] VITALS: BP 116/75; PULSE 99; TEMP 36.6; O2SAT 98; BMI 37.3
[2022-04-10 10:44] VITALS: BP 122/79; PULSE 94; RESP 18; O2SAT 97
--- NOTE | 2022-04-10 10:49 | P.PCN_ITS ---
- Procedure Date: 04/10/22 Time: 10:30 Anesthesiologist:: Sterling Limon CRNA Complications:: None Pre-procedure Diagnosis:: Degenerative disc disease MR spine multilevels. Lumbar facet arthropathy. Lumbar spondylosis. Post-procedure Diagnosis:: Same Indications for Procedure:: Patient is a very pleasant 41-year-old female that comes today for radiofrequency ablation L4-5, L5-S1 bilaterally. Patient had significant improvement terms of her lumbar back pain as well as bilateral hip pain with L4- 5, L5-S1 medial branch blocks bilaterally. She rates her pain 7/10 and lumbar spine. Procedure Details:: Lumbar RFA None Pre-procedure Diagnosis: Degenerative disc disease of lumbar spine with lumbar spondylosis and facet arthropathy Post-procedure Diagnosis: Same Indications for Procedure: Patient is a pleasant 68-year-old white female who we are treating for low back pain with lumbar spondylosis and facet arthropathy. She is done well with medial branch blocks with 80% relief of her pain symptoms. She presents for radiofrequency ablation to the facet joint/medial branches of L3-L4, L4-5 and L5-S1 today. She has already had the right side done and is doing very well. She presents for the left side today. Procedure Details: Lumbar RFA Informed consent was obtained and the risk and benefits of the procedure was explained to the patient. Patient was placed prone on the procedure table. The patient was prepped and draped in sterile fashion. C-arm fluoroscopy was used to view the lumbar spine. The skin and subcutaneous tissues were anesthetized using lidocaine. I placed 20-gauge RF needles into the facet joints of L3-L4, L4-L5 and L5-S1 on the left side. We underwent sensory stimulation. There is good sensory stimulation at 0.8 V. We underwent motor stimulation. There is no motor stimulation at 2 V. We then anesthetized these levels with lidocaine and Depo- Medrol. I used a total of 40 mg Depo-Medrol for all 3 levels. I then burned all 3 levels of L3-L4, L4-5 and L5-S1 on the left side for 4 minutes at 80 ?C. Patient tolerated the procedure well with no complication. Plan and Disposition:: We will follow-up with this patient in 2 weeks. We will reevaluate her symptoms at that time. Plan and Disposition:: Patient was discharged without incident.
[2022-04-10 12:15] LABS: Anion Gap 12.1 mEq/L (5-15); Blood Urea Nitrogen 11 mg/dl (7-17); Calcium 9.7 mg/dl (8.4-10.2); Carbon Dioxide 25 mmol/L (22.0-30.0); Chloride 102 mmol/L (98-107); Creatinine Clearance Estimated 364 mL/min (50-200); Estimated Glomerular Filt Rate 176 ml/min (>60); GFR (African American) 213 ML/MIN (>60); Glucose 225 mg/dl (74-100); Potassium 4.1 mmoL/L (3.5-5.1); Sodium 135 mmol/L (136-145)
== END 2022-04-10 10:45 | disposition home or self-care (01) ==
PROVIDERS: PCP Physician Assistant; Visit Provider Nurse Anesthetist, Certified Registered
DX: M51.36 Other intervertebral disc degeneration, lumbar region (principal); M47.26 Other spondylosis with radiculopathy, lumbar region
CPT/HCPCS: 36415; 64635; 64636; 80048; J1040

== ENCOUNTER → 2022-06-09 14:20 | Outpatient (CLI) | payer OTHER, SELFPAY ==
[2022-06-09 15:41] LABS: Anion Gap 17.1 mEq/L (5-15); Blood Urea Nitrogen 11 mg/dl (7-17); Calcium 9.3 mg/dl (8.4-10.2); Carbon Dioxide 26 mmol/L (22.0-30.0); Chloride 99 mmol/L (98-107); Estimated Glomerular Filt Rate 136 ml/min (>60); GFR (African American) 165 ML/MIN (>60); Glucose 151 mg/dl (74-100); Magnesium 1.6 mg/dl (1.6-2.3); Potassium 4.1 mmoL/L (3.5-5.1); Sodium 138 mmol/L (136-145)
== END ==
PROVIDERS: PCP Nurse Practitioner Family; Visit Provider Physician Assistant
DX: R06.00 Dyspnea, unspecified (principal); R94.30 Abnormal result of cardiovascular function study, unspecified
CPT/HCPCS: 36415; 80048; 83735

== ENCOUNTER 2022-08-07 10:08 | Emergency (ER) | payer OTHER, SELFPAY ==
[2022-08-07 10:45] VITALS: BP 118/76; PULSE 86; RESP 19; TEMP 36.7; O2SAT 98; BMI 41.2
[2022-08-07 10:47] LABS: Apearance,Urine Clear (Clear); Bilirubin,Urine Negative (Negative); Blood, Urine Negative (Negative); Color,Urine Yellow (Yellow); Glucose,Urine (UA) 1000 (Negative); Ketones,Urine TRACE (Negative); PH,Urine 5.5 (5.0-8.5); Protein,Urine 1+ (Negative); UTC Leukocyte Esterase,Urine Negative (Negative); UTC Nitrate,Urine Negative (Negative); Urobilinogen,Urine 0.2 EU/dl (0.2)
--- NOTE | 2022-08-07 11:18 | EXP.UTC ---
Discharge Plan Disposition Patient Disposition: Home, Self-Care Condition: Good Prescriptions Prescriptions: New levofloxacin 500 mg tablet 500 mg PO DAILY Qty: 10 0RF prednisone 20 mg tablet 20 mg PO BID Qty: 10 0RF albuterol sulfate 1.25 mg/3 mL solution for nebulization 1.25 mg inhalation Q4-6H PRN (Reason: shortness of breath or wheezing) Qty: 90 0RF No Action metformin 500 mg tablet extended release 24 hr 2,000 mg PO DAILY Label Comments: TAKE 1 TABLET BY MOUTH TWICE DAILY Bydureon BCise 2 mg/0.85 mL auto-injector 2 mg SQ WEEKLY Label Comments: INJECT 2 MG UNDER THE SKIN ONCE A WEEK DIRECTED desvenlafaxine succinate [Pristiq] 50 mg tablet extended release 24 hr 50 mg PO DAILY Qty: 30 1RF potassium chloride 20 mEq tablet extended release 20 meq PO DAILY Label Comments: TAKE 1 TABLET BY MOUTH DAILY glimepiride 2 mg tablet 2 mg PO DAILY dicyclomine 10 mg capsule 10 mg PO ONCE esomeprazole magnesium 40 mg capsule,delayed release(DR/EC) 40 mg PO DAILY Label Comments: TAKE 1 CAPSULE BY MOUTH DAILY Nicotrol 10 mg cartridge 1 inh IH ONCE PRN (Reason: Smoking Cessation) Dupixent Pen 300 mg/2 mL pen injector 300 mg SQ Q2W Spiriva with HandiHaler 18 mcg capsule, w/inhalation device 1 cap IH DAILY Label Comments: PLACE 1 CAPSULES INTO INHALER AND INHALE EVERY DAY bumetanide 2 mg tablet 2 mg PO DAILY Qty: 90 3RF metoprolol succinate 100 mg tablet extended release 24 hr 100 mg PO DAILY Qty: 90 3RF spironolactone 25 mg tablet 50 mg PO DAILY Qty: 90 3RF doxepin 25 mg capsule 25 mg PO .COMPLEX Qty: 60 1RF Rx Instructions: 25 mg PO take 1-2 capsules at bedtime diclofenac sodium 150 GM gel 150 gm TP NEEDED PRN (Reason: pain) Qty: 150 1RF tramadol 50 MG tablet 50 mg PO BID Qty: 60 0RF gabapentin 300 MG capsule 300 mg PO TID Qty: 90 0RF duloxetine 30 MG capsule,delayed release(DR/EC) 30 mg PO DAILY duloxetine 60 MG capsule,delayed release(DR/EC) 60 mg PO DAILY meloxicam 15 MG tablet 15 mg PO DAILY hydroxychloroquine 200 MG tablet 200 mg PO BID Referrals Follow up/Referrals: Brii Rios APRN [Primary Care Provider] - See instructions Activity Restrictions/Add. Instructions Additional Instructions/Restrictions: Urine culture pending. These results usually take 48-72 hours to return Follow up with PCP if not improving Follow up with PCP re: glycosuria, proteinuria Clinical Impressions Clinical Impression: Bronchitis, UTI (urinary tract infection) Discharge ED Provider: Bailee Thomas [facility] [place] Stated complaint: Possible UTI, Cough, chest congestion, wheezing Mode of Arrival: Ambulatory Source of Information: Patient Limitations: No Limitations Time Seen by Provider: 08/07/22 11:30 Description of Symptoms (Recalled from Triage Doc. by RN): PATIENT C/O FREQUENT URINATION, LOWER BACK PAIN, COUGH AND CONGESTION X 3 DAYS HEENT Symptoms (Recalled from RN notes): Yes Resp Symptoms (Recalled from RN notes): Yes Skin Symptoms (Recalled from RN notes): No MS Symptoms (Recalled from RN notes): No Functional Status (Recalled from RN notes): WNL History of Present Illness Provider Complaint: Low back pain, urinary frequency, dysuria X 1 week. No fever. Patient also has cough, congestion, wheezing X 5 days. Patient has diabetes, immune deficiency disorder. Onset (ago): week(s) (1) Related Data Home Medications Medication Instructions Recorded Confirmed metformin 500 mg tablet,extended 2,000 mg PO DAILY Diabetes 03/17/21 07/09/22 release 24 hr duloxetine 30 mg capsule,delayed 30 mg PO DAILY anxiety/pain 09/23/21 07/09/22 release duloxetine 60 mg capsule,delayed 60 mg PO DAILY anxiety/ pain 09/23/21 07/09/22 release potassium chloride 20 mEq 20 meq PO DAILY SUPPLIMENT 12/19/21 07/09/22 tablet,extende
[2022-08-07 11:37] VITALS: BP 118/76; PULSE 86; RESP 19; TEMP 36.7; O2SAT 98
== END 2022-08-07 11:40 | disposition home or self-care (01) ==
PROVIDERS: Emergency Provider Physician Assistant; PCP Nurse Practitioner Family
DX: N39.0 Urinary tract infection, site not specified (principal); J40 Bronchitis, not specified as acute or chronic
CPT/HCPCS: 81003; 87086; 99212; G0463

== ENCOUNTER → 2022-10-26 10:11 | Outpatient (CLI) | payer OTHER, SELFPAY ==
[2022-10-26 11:45] LABS: Basophils # 0.2 K/mm3 (0-0.2); Eosinophils # 0.3 K/mm3 (0.0-0.4); Eosinophils % 2.1 % (0.1-12.0); Hemoglobin 15.2 g/dL (12.2-16.2); Lymphocytes # 3.5 K/mm3 (0.7-4.5); Lymphocytes % 22.4 % (10-50); Mean Corpuscular HGB Conc 33.9 g/dL (31.8-35.4); Mean Corpuscular Hemoglobin 31.9 pg (27.0-31.2); Mean Corpuscular Volume 94.1 fl (81-99); Mean Platelet Volume 8.5 fl (7.4-10.4); Monocytes # 0.7 K/mm3 (0.1-1.0); Monocytes % 4.2 % (1.7-9.3); Neutrophils # 11.1 K/mm3 (1.8-7.8); Neutrophils % 70.2 % (37.0-80.0); Platelet Count 441 K/mm3 (142-424); Red Blood Count 4.78 M/mm3 (4.20-5.40); Red Cell Distribution Width 13.6 % (11.5-17.5); White Blood Count 15.8 K/mm3 (4.8-10.8)
[2022-10-26 11:57] LABS: MANUAL DIFFERENTIAL MANUAL DIFFERENTIAL (MANUAL DIFF)
[2022-10-26 12:02] LABS: Alanine Aminotransferase 52 U/L (12-78); Albumin Level 4.5 g/dl (3.5-5.0); Alkaline Phosphatase 100 U/L (38-126); Anion Gap 12.8 mEq/L (5-15); Aspartate Amino Transferase 46 U/L (14-36); Bilirubin,Direct 0.3 mg/dl (0.0-0.4); Bilirubin,Indirect 0.7 mg/dL (0.0-0.9); Bilirubin,Unconjugated 0.7 mg/dL (0.0-1.1); Blood Urea Nitrogen 13 mg/dl (7-17); Calcium 9.5 mg/dl (8.4-10.2); Carbon Dioxide 28 mmol/L (22.0-30.0); Chloride 98 mmol/L (98-107); Cholesterol 167 mg/dl (140-200); Estimated Glomerular Filt Rate 110 ml/min (>60); GFR (African American) 133 ML/MIN (>60); Glucose 176 mg/dl (74-100); HDL Cholesterol 42 mg/dl (40-60); Magnesium 1.6 mg/dl (1.6-2.3); Potassium 3.8 mmoL/L (3.5-5.1); Sodium 135 mmol/L (136-145); Total Protein,Serum 7.1 g/dl (6.3-8.2); Triglycerides 325 mg/dl (30-150); VLDL Cholesterol 65 mg/dL (0-40)
[2022-10-26 12:13] LABS: Direct LDL Cholesterol 87.72 mg/dL (100-129)
[2022-10-26 12:18] LABS: Free T4 (Free Thyroxine) 0.86 ng/dl (0.78-2.19)
[2022-10-26 12:32] LABS: Thyroid Stimulating Hormone 1.47 uIU/mL (0.465-4.68)
[2022-10-26 15:04] LABS: Eosinophils % 1 % (0-3); Lymphocytes % 16 % (10-50); Monocytes % 6 % (2-9); Neutrophils % 77 % (42-76); Total Cells Counted 100
[2022-10-26 15:05] LABS: Platelet Estimate Normal; RBC Morphology Normal
== END ==
PROVIDERS: PCP Nurse Practitioner Family; Visit Provider Nurse Practitioner Family
DX: R06.00 Dyspnea, unspecified (principal); R00.0 Tachycardia, unspecified; R94.30 Abnormal result of cardiovascular function study, unspecified; R94.31 Abnormal electrocardiogram [ECG] [EKG]; E11.69 Type 2 diabetes mellitus with other specified complication
CPT/HCPCS: 36415; 80048; 80061; 80076; 83735; 84439; 84443; 85007; 85025

== ENCOUNTER → 2022-12-07 11:47 | Outpatient (CLI) | payer OTHER, SELFPAY ==
[2022-12-07 13:13] LABS: Chloride 95 mmol/L (98-107); Potassium 3.8 mmoL/L (3.5-5.1); Sodium 134 mmol/L (136-145)
[2022-12-07 13:16] LABS: Anion Gap 17.8 mEq/L (5-15); Blood Urea Nitrogen 15 mg/dl (7-17); Calcium 9.4 mg/dl (8.4-10.2); Carbon Dioxide 25 mmol/L (22.0-30.0); Estimated Glomerular Filt Rate 92 ml/min (>60); GFR (African American) 111 ML/MIN (>60); Glucose 233 mg/dl (74-100)
== END ==
PROVIDERS: PCP Nurse Practitioner Family; Visit Provider Nurse Practitioner Family
DX: R06.00 Dyspnea, unspecified (principal); I51.89 Other ill-defined heart diseases
CPT/HCPCS: 36415; 80048

== ENCOUNTER → 2023-07-26 15:44 | Outpatient (CLI) | payer OTHER, SELFPAY ==
[2023-07-26 16:47] LABS: Microscopic, Urine URINE MICROSCOPIC (MICROSCOPIC)
[2023-07-26 17:19] LABS: Appearance,Urine CLEAR (Clear); Blood, Urine 3+ (Negative); Color,Urine DARK YELLOW (Yellow); Glucose,Urine (UA) Negative (Negative); Ketones,Urine TRACE (Negative); Leukocyte Esterase,Urine Negative (Negative); Nitrate,Urine POSITIVE (Negative); PH,Urine 5.5 (5.0-8.5); Protein,Urine 2+ (Negative); Specific Gravity, Urine >= 1.030 (1.005-1.030)
[2023-07-26 17:30] LABS: Bilirubin,Urine 1+ (Negative)
[2023-07-26 18:39] LABS: Bacteria,Urine Trace /lpf; Calcium Oxalate Crystals,Urine 2+ /lpf; Squamous Epithelial Cell,Urine Occasional #/hpf (0-5); WBC,Urine Occasional #/hpf (0-3)
== END ==
PROVIDERS: PCP Nurse Practitioner Family; Visit Provider Urology
DX: N32.81 Overactive bladder (principal); N39.0 Urinary tract infection, site not specified; B96.89 Other specified bacterial agents as the cause of diseases classified elsewhere
CPT/HCPCS: 81001; 87086

== ENCOUNTER 2023-08-30 10:28 | Outpatient (CLI) | payer OTHER, SELFPAY ==
[2023-08-30 10:59] LABS: Basophils # 0.1 K/mm3 (0-0.2); Basophils % 0.7 % (0.1-2.0); Eosinophils # 0.3 K/mm3 (0.0-0.4); Eosinophils % 2.2 % (0.1-12.0); Hematocrit 46.2 % (37.0-47.0); Hemoglobin 15.9 g/dL (12.2-16.2); Lymphocytes # 4.1 K/mm3 (0.7-4.5); Lymphocytes % 27.8 % (10-50); Mean Corpuscular HGB Conc 34.4 g/dL (31.8-35.4); Mean Corpuscular Hemoglobin 32.6 pg (27.0-31.2); Mean Corpuscular Volume 94.9 fl (81-99); Mean Platelet Volume 7.8 fl (7.4-10.4); Monocytes # 0.5 K/mm3 (0.1-1.0); Monocytes % 3.1 % (1.7-9.3); Neutrophils # 9.8 K/mm3 (1.8-7.8); Neutrophils % 66.2 % (37.0-80.0); Platelet Count 325 K/mm3 (142-424); Red Blood Count 4.87 M/mm3 (4.20-5.40); Red Cell Distribution Width 14.2 % (11.5-17.5); White Blood Count 14.8 K/mm3 (4.8-10.8)
[2023-08-30 11:27] LABS: Chloride 104 mmol/L (98-107)
[2023-08-30 11:28] LABS: Potassium 3.9 mmoL/L (3.5-5.1); Sodium 139 mmol/L (136-145)
[2023-08-30 11:31] LABS: Anion Gap 12.9 mEq/L (5-15); Blood Urea Nitrogen 9 mg/dl (7-17); Calcium 9.4 mg/dl (8.4-10.2); Carbon Dioxide 26 mmol/L (22.0-30.0); Estimated Glomerular Filt Rate 135 ml/min (>60); GFR (African American) 164 ML/MIN (>60); Glucose 147 mg/dl (74-100)
== END 2023-08-30 23:59 ==
LOC: LAB 10:29
PROVIDERS: PCP Nurse Practitioner Family; Visit Provider Urology
DX: N32.81 Overactive bladder (principal)
CPT/HCPCS: 36415; 80048; 85025

== ENCOUNTER 2023-09-06 09:29 | Day surgery (SDC) | payer OTHER, SELFPAY ==
[2023-09-03 09:19] VITALS: BMI 34.5
[2023-09-06 10:08] VITALS: BP 122/68; PULSE 89; RESP 20; TEMP 36.7; O2SAT 98
[2023-09-06 10:21] LABS: POC Glucose,Bedside 205 (70-110)
[2023-09-06 10:42] LABS: Urine Pregnancy, HCG Qual. Negative (Negative)
--- NOTE | 2023-09-06 11:14 | HMH.PROCNOTE ---
[facility] Procedure Note Date: 09/06/23 Time: 11:14 Procedure Note:: Preop diagnosis: Hematuria Postop diagnosis: Hematuria/pelvic floor relaxation/atrophic vaginitis Operative note: The patient was brought to the cystoscopy suite for local cystoscopy/colposcopy/simple cystometrogram. She was prepped and draped in the usual fashion. Colposcopy shows that the patient has resorption of the labia minora suggestive of estrogen/testosterone deficiency. She has some telescoping of the urethra and a hyper mobile urethra. Her urethral opening is open. Cystoscopy does not demonstrate urethritis. The bladder itself is smooth, and salmon-pink in color, and without stone tumor hemorrhage or infection. The ureteral orifice ease are normal bilaterally. The patient's simple cystometrogram shows a first sensation of bladder filling at 75 cc. The bladder was filled to 275 cc for capacity. In the supine position she did not demonstrate stress incontinence. However with her abdominal obesity and being in an upright position I would suspect that she leaks on occasion with stress incontinence as she indicates that her history. In time that portion of the incontinence could perhaps be helped with the sling.
[2023-09-06 11:18] VITALS: BP 140/82; PULSE 92; RESP 16; TEMP 36.1; O2SAT 95
== END 2023-09-06 11:27 | disposition home or self-care (01) ==
PROVIDERS: PCP Nurse Practitioner Family; Visit Provider Urology
PROC: 0TJB8ZZ Inspection of Bladder, Via Natural or Artificial Opening Endoscopic (ICD-10-PCS; CPT 52000; principal; 2023-09-06 11:00)
DX: R31.9 Hematuria, unspecified (principal); N81.89 Other female genital prolapse; N95.2 Postmenopausal atrophic vaginitis; E11.9 Type 2 diabetes mellitus without complications
CPT/HCPCS: 52000; 51725; 57452; 81025; 82962

== ENCOUNTER 2023-09-09 09:47 | Outpatient (CLI) | payer OTHER, SELFPAY ==
[2023-09-09 10:37] LABS: Basophils # 0.1 K/mm3 (0-0.2); Basophils % 0.8 % (0.1-2.0); Eosinophils # 0.3 K/mm3 (0.0-0.4); Eosinophils % 1.8 % (0.1-12.0); Hematocrit 47.9 % (37.0-47.0); Hemoglobin 16.2 g/dL (12.2-16.2); Lymphocytes # 4.3 K/mm3 (0.7-4.5); Lymphocytes % 26.6 % (10-50); Mean Corpuscular HGB Conc 33.7 g/dL (31.8-35.4); Mean Corpuscular Hemoglobin 32.5 pg (27.0-31.2); Mean Corpuscular Volume 96.2 fl (81-99); Mean Platelet Volume 8.3 fl (7.4-10.4); Monocytes # 0.5 K/mm3 (0.1-1.0); Monocytes % 3.3 % (1.7-9.3); Neutrophils # 10.9 K/mm3 (1.8-7.8); Neutrophils % 67.5 % (37.0-80.0); Platelet Count 266 K/mm3 (142-424); Red Blood Count 4.98 M/mm3 (4.20-5.40); Red Cell Distribution Width 14.3 % (11.5-17.5); White Blood Count 16.2 K/mm3 (4.8-10.8)
[2023-09-09 10:40] LABS: Chloride 103 mmol/L (98-107); Sodium 135 mmol/L (136-145)
[2023-09-09 10:41] LABS: Potassium 4.4 mmoL/L (3.5-5.1)
[2023-09-09 10:43] LABS: Alanine Aminotransferase 40 U/L (12-78); Alkaline Phosphatase 108 U/L (38-126); Anion Gap 11.4 mEq/L (5-15); Aspartate Amino Transferase 30 U/L (14-36); Bilirubin,Total 0.8 mg/dl (0.2-1.3); Blood Urea Nitrogen 15 mg/dl (7-17); Carbon Dioxide 25 mmol/L (22.0-30.0); Cholesterol 167 mg/dl (140-200); Estimated Glomerular Filt Rate 135 ml/min (>60); GFR (African American) 164 ML/MIN (>60); Iron 85 ug/dL (37-170)
[2023-09-09 10:44] LABS: Albumin Level 3.8 g/dl (3.5-5.0); Albumin/Globulin Ratio 1.4 (1.1-1.8); Chol/HDL Ratio 4.5 (1-3.5); Globulin 2.7 g/dL (1.3-3.2); Glucose 302 mg/dl (74-100); HDL Cholesterol 37 mg/dl (40-60); Total Protein,Serum 6.5 g/dl (6.3-8.2); Triglycerides 416 mg/dl (30-150)
[2023-09-09 10:49] LABS: MANUAL DIFFERENTIAL MANUAL DIFFERENTIAL (MANUAL DIFF)
[2023-09-09 10:55] LABS: Direct LDL Cholesterol 81.76 mg/dL (100-129)
[2023-09-09 10:56] LABS: Intact Parathyroid Hormone 119.8 pg/mL (7.5-53.5)
[2023-09-09 11:02] LABS: 25-OH Vitamin D, Total 26.3 ng/mL (30-100); Free T4 (Free Thyroxine) 1.02 ng/dl (0.78-2.19); Total Iron Binding Capacity 343 ug/dL (265-497)
[2023-09-09 11:15] LABS: Thyroid Stimulating Hormone 1.02 uIU/mL (0.465-4.68)
[2023-09-09 11:19] LABS: Ferritin 107 ng/ml (6.24-137)
[2023-09-09 11:54] LABS: Hemoglobin A1C 8.5 % (4.0-6.0)
[2023-09-09 12:27] LABS: Lymphocytes % 29 % (10-50); Monocytes % 3 % (2-9); Neutrophils % 68 % (42-76); Total Cells Counted 100
[2023-09-09 12:28] LABS: Platelet Estimate Normal; RBC Morphology Normal
[2023-09-12 11:22] LABS: Vitamin A 62.8 ug/dL (20.1-62.0)
[2023-09-12 16:28] LABS: Vitamin E Alpha Tocopherol 12.4 mg/L (7.0-25.1); Vitamin E Gamma Tocopherol 1.8 mg/L (0.5-5.5)
[2023-09-12 18:09] LABS: Vitamin B1 173.8 nmol/L (66.5-200.0)
[2023-09-19 10:07] LABS: Methylmalonic Acid 240 nmol/L (0-378)
== END 2023-09-09 23:59 ==
LOC: RAD 09:49 → LAB 09-13 12:13
PROVIDERS: PCP Nurse Practitioner Family; Visit Provider Nurse Practitioner Family
DX: Z01.818 Encounter for other preprocedural examination (principal); E66.9 Obesity, unspecified; Z68.38 Body mass index [BMI] 38.0-38.9, adult; E55.9 Vitamin D deficiency, unspecified; Z79.899 Other long term (current) drug therapy; Z79.85 Long-term (current) use of injectable non-insulin antidiabetic drugs
CPT/HCPCS: 36415; 80053; 80061; 82306; 82728; 82746; 83036; 83540; 83550; 83921; 83970; 84425; 84439; 84443; 84446; 84590; 85007; 85025

== ENCOUNTER 2023-09-13 12:07 | Outpatient (CLI) | payer OTHER, SELFPAY ==
--- NOTE | 2023-09-13 12:25 | XR_ITS ---
FINAL REPORT TECHNIQUE: Chest PA & Lateral CLINICAL HISTORY: OBESITY COMPARISON: 09/19/2021 FINDINGS: 2 views of the chest were performed. The heart size is normal. The mediastinum is within normal limits. There is no acute cardiopulmonary process. There are no pleural effusions. There is no pneumothorax. The bony thorax appears intact. IMPRESSION: No acute cardiopulmonary process. Reviewed, Interpreted and Dictated by Rai Louis MD Transcribed by Cecelai Khan Authenticated and [facility]
== END 2023-09-13 23:59 ==
LOC: RAD 12:08
PROVIDERS: PCP Nurse Practitioner Family; Visit Provider Nurse Practitioner Family
DX: E66.9 Obesity, unspecified (principal); Z68.38 Body mass index [BMI] 38.0-38.9, adult
CPT/HCPCS: 71046

== ENCOUNTER 2023-09-28 13:46 | Outpatient (CLI) | payer OTHER, SELFPAY ==
--- NOTE | 2023-09-28 13:52 | US_ITS ---
FINAL REPORT CLINICAL HISTORY: ELEVATED PARATHYROID HORMONE COMPARISON: None FINDINGS: ULTRASOUND SOFT TISSUES NECK: Ultrasound examination of the parotid and submandibular glands bilaterally fails to reveal any evidence of mass or fluid collection. There are several cervical nodes identified, the largest measuring 1.5 cm in size. No other focal mass is identified in the soft tissues of the neck. IMPRESSION: Ultrasound of the salivary glands is unremarkable. Several cervical nodes are identified, the largest measuring 1.5 cm. Reviewed, Interpreted and Dictated by Froilan Mcfarland III, MD Transcribed by Lucia Woodard Authenticated and [facility]
== END 2023-09-28 23:59 ==
LOC: RAD 13:47
PROVIDERS: PCP Nurse Practitioner Family; Visit Provider Nurse Practitioner Family
DX: R79.89 Other specified abnormal findings of blood chemistry (principal)
CPT/HCPCS: 76536

== ENCOUNTER 2023-10-18 15:04 | Outpatient (CLI) | payer OTHER, SELFPAY ==
[2023-10-18 15:02] LABS: Microscopic, Urine URINE MICROSCOPIC (MICROSCOPIC)
[2023-10-18 15:24] LABS: Appearance,Urine CLEAR (Clear); Blood, Urine Negative (Negative); Color,Urine YELLOW (Yellow); Glucose,Urine (UA) TRACE (Negative); Ketones,Urine TRACE (Negative); Leukocyte Esterase,Urine Negative (Negative); Nitrate,Urine POSITIVE (Negative); Protein,Urine 1+ (Negative); Specific Gravity, Urine >= 1.030 (1.005-1.030); Urobilinogen,Urine 0.2 EU/dl (0.2)
[2023-10-18 15:54] LABS: WBC,Urine Occasional #/hpf (0-3)
[2023-10-18 15:55] LABS: Bilirubin,Urine 1+ (Negative)
[2023-10-18 16:04] LABS: Amorphous Sediment,Urine 1+ /lpf; Bacteria,Urine 3+ /lpf; Calcium Oxalate Crystals,Urine 1+ /lpf
== END 2023-10-18 23:59 ==
LOC: LAB.DROPOF 15:04
PROVIDERS: PCP Urology; Visit Provider Urology
DX: N39.0 Urinary tract infection, site not specified (principal); R31.9 Hematuria, unspecified; B96.89 Other specified bacterial agents as the cause of diseases classified elsewhere
CPT/HCPCS: 81001; 87086

== ENCOUNTER 2024-08-14 15:25 | Outpatient (CLI) | payer OTHER, SELFPAY ==
[2024-08-14 15:16] LABS: Microscopic, Urine URINE MICROSCOPIC (MICROSCOPIC)
[2024-08-14 15:28] LABS: Appearance,Urine CLEAR (Clear); Bilirubin,Urine Negative (Negative); Blood, Urine Negative (Negative); Color,Urine YELLOW (Yellow); Glucose,Urine (UA) 3+ (Negative); Ketones,Urine Negative (Negative); Leukocyte Esterase,Urine Negative (Negative); Nitrate,Urine Negative (Negative); Protein,Urine Negative (Negative); Urobilinogen,Urine 0.2 EU/dl (0.2)
[2024-08-14 16:19] LABS: Bacteria,Urine 2+ /lpf; Squamous Epithelial Cell,Urine 50-100 #/hpf (0-5); WBC,Urine 50-100 #/hpf (0-3); Yeast,Urine 1+ /lpf
== END 2024-08-14 23:59 | disposition home or self-care (01) ==
LOC: LAB.DROPOF 15:25
PROVIDERS: PCP Urology; Visit Provider Urology
DX: N39.3 Stress incontinence (female) (male) (principal); N39.490 Overflow incontinence
CPT/HCPCS: 81001; 87086

== ENCOUNTER 2024-11-13 07:00 | Outpatient (CLI) | payer OTHER, SELFPAY ==
[2024-11-13 16:10] LABS: Microscopic, Urine URINE MICROSCOPIC (MICROSCOPIC)
[2024-11-13 22:06] LABS: Appearance,Urine CLEAR (Clear); Bilirubin,Urine Negative (Negative); Blood, Urine Negative (Negative); Color,Urine YELLOW (Yellow); Glucose,Urine (UA) >=1000 (Negative); Ketones,Urine Negative (Negative); Leukocyte Esterase,Urine Negative (Negative); Nitrate,Urine Negative (Negative); Protein,Urine Negative (Negative); Specific Gravity, Urine 1.015 (1.005-1.030); Urobilinogen,Urine 0.2 EU/dl (0.2)
[2024-11-14 00:24] LABS: Bacteria,Urine Trace /lpf
== END 2024-11-13 23:59 | disposition home or self-care (01) ==
LOC: LAB.DROPOF 11-14 12:58
PROVIDERS: PCP Urology; Visit Provider Urology
DX: R31.9 Hematuria, unspecified (principal)
CPT/HCPCS: 81001